=== PATIENT | female | born 1970 | race Caucasian/White ===

== ENCOUNTER 2020-09-19 19:28 | Emergency (ER) | payer BC ==
[2020-09-19] MEDS ORDERED: LORazepam 2 MG/ML INJ IV STA ×2 (20:09→22:52)
[2020-09-19] MEDS ORDERED: SODIUM CHLORIDE 0.9% 1,000 ML IV STA (20:09)
[2020-09-19] MEDS ORDERED: ONDANSETRON 4 MG/2 ML VIAL IVP STA (20:09)
[2020-09-19 20:44] LABS: Basophils # (A) 0.1 k/uL (0-0.2); Basophils % (A) 0 %; Eosinophils # (A) 0.2 k/uL (0-0.7); Eosinophils % (A) 2 %; HCT 41.8 % (34.0-46.0); HGB 15.1 gm/dL (11.4-16.0); Lymphocytes # (A) 1.1 k/uL (1.0-4.8); Lymphocytes % (A) 8 %; MCH 37.5 pg (25.0-35.0); MCHC 36.1 g/dL (31.0-37.0); MCV 103.7 fL (80.0-100.0); Macrocytosis Slight; Mean Platelet Volume 7.9; Monocytes # (A) 0.5 k/uL (0-1.0); Monocytes % (A) 4 %; Neutrophils % (A) 85 %; Platelet Count 262 k/uL (150-450); RBC 4.03 m/uL (3.80-5.40); RDW 11.9 % (11.5-15.5)
[2020-09-19 20:53] LABS: ALT 72 U/L (4-34); AST 171 U/L (14-36); African American GFR (CKD) >90 (>60 ml/min/1.73 sqM); Albumin 5.7 g/dL (3.5-5.0); Alcohol <10 mg/dL; Alkaline Phosphatase 110 U/L (38-126); Anion Gap 16 mmol/L; Blood Urea Nitrogen 8 mg/dL (7-17); Calcium 10.9 mg/dL (8.4-10.2); Carbon Dioxide 21 mmol/L (22-30); Chloride 100 mmol/L (98-107); Glucose 119 mg/dL (74-99); Non-African American GFR(CKD) 82 (>60 ml/min/1.73 sqM); Potassium 4.3 mmol/L (3.5-5.1); Sodium 137 mmol/L (137-145); Total Bilirubin 1.4 mg/dL (0.2-1.3); Total Protein 8.9 g/dL (6.3-8.2)
[2020-09-19 20:57] LABS: INR 0.9 (<1.2); Partial Thromboplastin Time 22.5 sec (22.0-30.0); Prothrombin Time 10.2 sec (9.0-12.0)
[2020-09-19 21:05] LABS: Amorphous Sediment,Urine Occasional /hpf; Appearance,Urine Cloudy (Clear); Bilirubin,Urine 1+ (Negative); Blood,Urine Negative (Negative); Color,Urine Yellow; Glucose,Urine (UA) Trace (Negative); Hyaline Casts,Urine 39 /lpf (0-2); Ketones,Urine 1+ (Negative); Leukocyte Esterase,Urine Small (Negative); Mucus,Urine Moderate /hpf; Nitrite,Urine Negative (Negative); PH, Urine 5.5 (5.0-8.0); Protein,Urine 1+ (Negative); RBC,Urine 3 /hpf (0-5); Specific Gravity,Urine 1.021 (1.001-1.035); Squamous Epithelial Cell,Urine 6 /hpf (0-4); WBC,Urine 6 /hpf (0-5)
[2020-09-19 21:21] LABS: Amphetamine Screen,Urine Not Detected (NotDetected); Barbiturate Screen,Urine Not Detected (NotDetected); Benzodiazepines Screen,Urine Not Detected (NotDetected); Cocaine Screen,Urine Not Detected (NotDetected); Methadone Screen, Urine Not Detected (NotDetected); Opiate Screen,Urine Not Detected (NotDetected); Oxycodone Screen, Urine Not Detected (NotDetected); Phencyclidine Screen,Urine Not Detected (NotDetected); Tricyclic Antidepressant,Urine Not Detected (NotDetected); Urn Cannabinoid Scrn Detected (NotDetected)
--- NOTE | 2020-09-19 21:35 | ED ---
Nausea/Vomiting/Diarrhea HPI - General Chief complaint: Arrhythmia/Palpitations Stated complaint: tachycardia,vomiting Time Seen by Provider: 09/19/20 19:47 Source: patient Mode of arrival: ambulatory Limitations: no limitations - History of Present Illness Initial comments: Patient is a 50-year-old female presenting to emergency Department with complai nts of nausea, vomiting, low appetite and feeling like her heart is racing. Patient states a few months ago, she was admitted at [facility] for severe dehydration and electrolyte imbalance. She states she feels like that could be going on again. She denies any chest pains, no shortness of breath, no abdominal pain. She just feels "shaky and off." She denies any recent fevers or chills, no dysuria she states her appetite has been low. She does admit to being a daily alcohol drinker, occasional marijuana, she does vape and smokes cigarettes. - Related Data Home Medications Medication Instructions Recorded Confirmed Fluticasone Nasal [place] [Flonase 1 spray EA NOSTRIL DAILY 09/19/20 09/19/20 Nasal [place]] Fluticasone/Salmeterol [Advair 1 puff INHALATION RT-DAILY 09/19/20 09/19/20 250-50 Diskus] Allergies Allergy/AdvReac Type Severity Reaction Status Date / Time Penicillins Allergy Unknown Verified 09/19/20 20:37 Childhood Review of Systems ROS Statement: Those systems with pertinent positive or pertinent negative responses have been documented in the HPI. ROS Other: All systems not noted in ROS Statement are negative. Past Medical History Past Medical History: Asthma History of Any Multi-Drug Resistant Organisms: None Reported Past Surgical History: Orthopedic Surgery, Tubal Ligation Past Psychological History: Depression, PTSD Smoking Status: Current every day smoker, Vaper Past Alcohol Use History: Daily, Heavy Past Drug Use History: Marijuana General Exam - General Exam Comments Initial Comments: GENERAL: Patient is well-developed and well-nourished. Patient is nontoxic and in no acute distress, appears anxious. HEAD: Atraumatic, normocephalic. EYES: Pupils equal round and reactive to light, extraocular movements intact, sclera anicteric, conjunctiva are normal. Eyelids were unremarkable. ENT: TMs normal, nares patent, oropharynx clear without exudates. Moist mucous membranes. NECK: Normal range of motion, supple without lymphadenopathy or JVD. LUNGS: Unlabored respirations. Breath sounds clear to auscultation bilaterally and equal. No wheezes rales or rhonchi. HEART: Tachycardic rate and rhythm without murmurs, rubs or gallops. ABDOMEN: Soft, nontender, normoactive bowel sounds. No guarding, no rebound. No masses appreciated. : Deferred MUSCULOSKELETAL: Normal extremities with adequate strength and normal range of motion, no pitting or edema. No clubbing or cyanosis. NEUROLOGICAL: Patient is alert and oriented x 3. Motor and sensory are also intact. Cranial nerves II through XII grossly intact. Symmetrical smile. Normal speech, normal gait. PSYCH: Normal mood, normal affect. SKIN: Warm, Dry, normal turgor, no rashes or lesions noted. Limitations: no limitations Course Vital Signs 09/19/20 09/19/20 09/19/20 19:37 20:12 22:38 Temperature 98.3 F 98.0 F Pulse Rate 122 H 106 H 110 H Pulse Rate [ 112 H Bilateral Radial] Respiratory 18 18 18 Rate Blood Pressure 139/95 136/94 116/78 O2 Sat by Pulse 99 100 99 Oximetry Medical Decision Making - Medical Decision Making Patient is a 50-year-old female here with complaints of nausea and vomiting, possible electrolyte imbalance, heart racing over the past few days. Patient's initial pulse was 122, EKG read sinus tach at 118. Patient is in every day drinker, no drinks today. Labs are showing a slight white count at 13.0, sodium potassium are normal, transaminitis, lactic acid is normal at 1.3. TSH is 2.4. Magnesium, phosphorus, lipase are all normal. Urine shows no evidence of in fection. Alcohol is negative today. She received a liter of fluids, Ativan, reports improvement in her symptoms. I discussed with patient this could be something viral or alcohol withdrawal/anxiety. I recommended following up with her PCP. I will give her Zofran to go home with. She is in agreement with this plan of care. She is stable for discharge. Return parameters were discussed with parents verbalized understanding. Case discussed with Dr. Colby. - Lab Data Result diagrams: 09/19/20 20:30 09/19/20 20:30 Lab Results 09/19/20 09/19/20 09/19/20 Range/Units 20:30 20:30 20:30 WBC 13.0 H (3.8-10.6) k/uL RBC 4.03 (3.80-5.40) m/uL Hgb 15.1 (11.4-16.0) gm/dL Hct 41.8 (34.0-46.0) % MCV 103.7 H (80.0-100.0) fL MCH 37.5 H (25.0-35.0) pg MCHC 36.1 (31.0-37.0) g/dL RDW 11.9 (11.5-15.5) % Plt Count 262 (150-450) k/uL MPV 7.9 Neutrophils % 85 % Lymphocytes % 8 % Monocytes % 4 % Eosinophils % 2 % Basophils % 0 % Neutrophils # 11.0 H (1.3-7.7) k/uL Lymphocytes # 1.1 (1.0-4.8) k/uL Monocytes # 0.5 (0-1.0) k/uL Eosinophils # 0.2 (0-0.7) k/uL Basophils # 0.1 (0-0.2) k/uL Macrocytosis Slight PT 10.2 (9.0-12.0) sec INR 0.9 (<1.2) APTT 22.5 (22.0-30.0) sec Sodium 137 (137-145) mmol/L Potassium 4.3 (3.5-5.1) mmol/L Chloride 100 (98-107) mmol/L Carbon Dioxide 21 L (22-30) mmol/L Anion Gap 16 mmol/L BUN 8 (7-17) mg/dL Creatinine 0.83 (0.52-1.04) mg/dL Est GFR (CKD-EPI)AfAm >90 (>60 ml/min/1.73 sqM) Est GFR (CKD-EPI)NonAf 82 (>60 ml/min/1.73 sqM) Glucose 119 H (74-99) mg/dL Plasma Lactic Acid [place] (0.7-2.0) mmol/L Calcium 10.9 H (8.4-10.2) mg/dL Phosphorus (2.5-4.5) mg/dL Magnesium (1.6-2.3) mg/dL Total Bilirubin 1.4 H (0.2-1.3) mg/dL AST 171 H (14-36) U/L ALT 72 H (4-34) U/L Alkaline Phosphatase 110 (38-126) U/L Total Protein 8.9 H (6.3-8.2) g/dL Albumin 5.7 H (3.5-5.0) g/dL Lipase (23-300) U/L TSH 2.480 (0.465-4.680) mIU/L Urine Color Urine Appearance (Clear) Urine pH (5.0-8.0) Ur Specific [place] (1.001-1.035) Urine Protein (Negative) Urine Glucose (UA) (Negative) Urine Ketones (Negative) Urine Blood (Negative) Urine Nitrite (Negative) Urine Bilirubin (Negative) Urine Urobilinogen (<2.0) mg/dL Ur Leukocyte Esterase (Negative) Urine RBC (0-5) /hpf Urine WBC (0-5) /hpf Ur Squamous Epith Cells (0-4) /hpf Amorphous Sediment (None) /hpf Hyaline Casts (0-2) /lpf Urine Mucus (None) /hpf Urine Opiates Screen (NotDetected) Ur Oxycodone Screen (NotDetected) Urine Methadone Screen (NotDetected) Ur Propoxyphene Screen (NotDetected) Ur Barbiturates Screen (NotDetected) U Tricyclic Antidepress (NotDetected) Ur Phencyclidine Scrn (NotDetected) Ur Amphetamines Screen (NotDetected) U Methamphetamines Scrn (NotDetected) U Benzodiazepines Scrn (NotDetected) Urine Cocaine Screen (NotDetected) U Marijuana (THC) Screen (NotDetected) Serum Alcohol <10 mg/dL 09/19/20 09/19/20 09/19/20 Range/Units 20:30 20:30 20:30 WBC (3.8-10.6) k/uL RBC (3.80-5.40) m/uL Hgb (11.4-16.0) gm/dL Hct (34.0-46.0) % MCV (80.0-100.0) fL MCH (25.0-35.0) pg MCHC (31.0-37.0) g/dL RDW (11.5-15.5) % Plt Count (150-450) k/uL MPV Neutrophils % % Lymphocytes % % Monocytes % % Eosinophils % % Basophils % % Neutrophils # (1.3-7.7) k/uL Lymphocytes # (1.0-4.8) k/uL Monocytes # (0-1.0) k/uL Eosinophils # (0-0.7) k/uL Basophils # (0-0.2) k/uL Macrocytosis PT (9.0-12.0) sec INR (<1.2) APTT (22.0-30.0) sec Sodium (137-145) mmol/L Potassium (3.5-5.1) mmol/L Chloride (98-107) mmol/L Carbon Dioxide (22-30) mmol/L Anion Gap mmol/L BUN (7-17) mg/dL Creatinine (0.52-1.04) mg/dL Est GFR (CKD-EPI)AfAm (>60 ml/min/1.73 sqM) Est GFR (CKD-EPI)NonAf (>60 ml/min/1.73 sqM) Glucose (74-99) mg/dL Plasma Lactic Acid [place] 1.3 (0.7-2.0) mmol/L Calcium (8.4-10.2) mg/dL Phosphorus 3.2 (2.5-4.5) mg/dL Magnesium 1.8 (1.6-2.3) mg/dL Total Bilirubin (0.2-1.3) mg/dL AST (14-36) U/L ALT (4-34) U/L Alkaline Phosphatase (38-126) U/L Total Protein (6.3-8.2) g/dL Albumin (3.5-5.0) g/dL Lipase 47 (23-300) U/L TSH (0.465-4.680) mIU/L Urine Color Yellow Urine Appearance Cloudy H (Clear) Urine pH 5.5 (5.0-8.0) Ur Specific [place] 1.021 (1.001-1.035) Urine Protein 1+ H (Negative) Urine Glucose (UA) Trace H (Negative) Urine Ketones 1+ H (Negative) Urine Blood Negative (Negative) Urine Nitrite Negative (Negative) Urine Bilirubin 1+ H (Negative) Urine Urobilinogen 2.0 (<2.0) mg/dL Ur Leukocyte Esterase Small H (Negative) Urine RBC 3 (0-5) /hpf Urine WBC 6 H (0-5) /hpf Ur Squamous Epith Cells 6 H (0-4) /hpf Amorphous Sediment Occasional H (None) /hpf Hyaline Casts 39 H (0-2) /lpf Urine Mucus Moderate H (None) /hpf Urine Opiates Screen Not Detected (NotDetected) Ur Oxycodone Screen Not Detected (NotDetected) Urine Methadone Screen Not Detected (NotDetected) Ur Propoxyphene Screen Not Detected (NotDetected) Ur Barbiturates Screen Not Detected (NotDetected) U Tricyclic Antidepress Not Detected (NotDetected) Ur Phencyclidine Scrn Not Detected (NotDetected) Ur Amphetamines Screen Not Detected (NotDetected) U Methamphetamines Scrn Not Detected (NotDetected) U Benzodiazepines Scrn Not Detected (NotDetected) Urine Cocaine Screen Not Detected (NotDetected) U Marijuana (THC) Screen Detected H (NotDetected) Serum Alcohol mg/dL - EKG Data EKG Comments: Sinus tach, left axis deviation, no signs of acute ST segment elevation. Ventricular rate 118, TX interval 170, QT 312. Disposition Clinical Impression: Nausea & vomiting, Alcohol withdrawal Disposition: HOME SELF-CARE Condition: Stable Instructions (If sedation given, give patient instructions): Acute Nausea and Vomiting (ED) Additional Instructions: Please return to the Emergency Department if symptoms worsen or any other concerns. May take Zofran for any additional nausea or vomiting. Recommended stop drinking. Please follow-up with your primary care physician. Is patient prescribed a controlled substance at d/c from ED?: No Referrals: Tahir Shepard MD [Primary Care Provider] - 1-2 days Time of Disposition: 23:37
[2020-09-19 22:38] VITALS: TEMP 98
[2020-09-19] MEDS ORDERED: SODIUM CHLORIDE 0.9% 500 ML 500 ML IV STA (22:52)
[2020-09-19 23:28] LABS: Magnesium 1.8 mg/dL (1.6-2.3); Phosphorus 3.2 mg/dL (2.5-4.5)
[2020-09-19] MEDS ORDERED: ONDANSETRON 4 MG ODT STARTER PACK 2 TAB BTL PO STA (23:37)
[2020-09-19 23:43] VITALS: BP 118/70; PULSE 95
[2020-09-19 23:48] VITALS: RESP 16
== END 2020-09-19 23:50 | disposition home or self-care (01) ==
LOC: EC 19:28
DX: F10.239 Alcohol dependence with withdrawal, unspecified (principal); J45.909 Unspecified asthma, uncomplicated; F17.290 Nicotine dependence, other tobacco product, uncomplicated; F12.90 Cannabis use, unspecified, uncomplicated; Z79.51 Long term (current) use of inhaled steroids; Z88.0 Allergy status to penicillin; Y90.0 Blood alcohol level of less than 20 mg/100 ml
CPT/HCPCS: 36415; 93005; 80053; 84443; 83605; 83690; 83735; 84100; 85025; 85610; 85730; 81001; 80306; 80320; 96374; 96375; 96376; 96361; 99284; J2060; J2405; S0119

== ENCOUNTER 2020-12-22 20:49 | Inpatient (IN) | payer BC ==
[2020-12-22] MEDS ORDERED: SODIUM CHLORIDE 0.9% 1,000 ML IV STA ×2 (21:23→23:17)
[2020-12-22] MEDS ORDERED: ONDANSETRON 4 MG/2 ML VIAL IVP STA (21:23)
[2020-12-22] MEDS ORDERED: LORazepam 2 MG/ML INJ IV STA (21:24)
[2020-12-22] MEDS ORDERED: FAMOTIDINE 20 MG/2 ML VIAL IV STA (21:25)
--- NOTE | 2020-12-22 21:26 | ED ---
General Adult HPI - General Source: patient, RN notes reviewed, old records reviewed Mode of arrival: wheelchair Limitations: no limitations <Kyle Nichols - Last Filed: 12/22/20 21:52> - History of Present Illness -: hour(s) Severity scale (1-10): 10 Quality: aching Consistency: constant Improves with: none Worsens with: none Associated Symptoms: confusion, loss of appetite, malaise, nausea/vomiting, shortness of breath, weakness Treatments Prior to Arrival: none <Shai Colby - Last Filed: 12/23/20 00:08> - General Chief complaint: Nausea/Vomiting/Diarrhea Stated complaint: Vomiting Time Seen by Provider: 12/22/20 21:11 - History of Present Illness Initial comments: 50-year-old female presenting for evaluation nausea vomiting. Patient denies associated abdominal pain. Denies fever. She denies dysuria or hematuria. Patient admits to alcohol consumption yesterday evening. She denies alcohol use today. Additionally she is complaining of some pain and irritation in her right ureter. (Kyle Nichols) Patient stopped drinking one day ago, significant distress weakness persistent nausea and vomiting (Shai Colby) - Related Data Home Medications Medication Instructions Recorded Confirmed Fluticasone/Salmeterol [Advair 1 puff INHALATION RT-DAILY 09/19/20 12/22/20 250-50 Diskus] Albuterol Sulfate [Albuterol 2 puff PO RT-Q6H PRN 12/22/20 12/22/20 Sulfate Hfa] Dextroamphetamine/Amphetamine 20 mg PO DAILY 12/22/20 12/22/20 [Adderall] LORazepam [Ativan] 0.5 mg PO BID PRN 12/22/20 12/22/20 Allergies Allergy/AdvReac Type Severity Reaction Status Date / Time Penicillins Allergy Unknown Verified 12/22/20 22:15 Childhood Review of Systems ROS Other: All systems not noted in ROS Statement are negative. <Kyle Nichols - Last Filed: 12/22/20 21:52> ROS Other: All systems not noted in ROS Statement are negative. <Shai Colby - Last Filed: 12/23/20 00:08> ROS Statement: Those systems with pertinent positive or pertinent negative responses have been documented in the HPI. Past Medical History Past Medical History: Asthma History of Any Multi-Drug Resistant Organisms: None Reported Past Surgical History: Orthopedic Surgery, Tubal Ligation Past Psychological History: Depression, PTSD Smoking Status: Current every day smoker, Vaper Past Alcohol Use History: Daily, Heavy Past Drug Use History: Marijuana <Kyle Nichols N - Last Filed: 12/22/20 21:52> General Exam Limitations: no limitations General appearance: alert, in no apparent distress Head exam: Present: atraumatic, normocephalic Eye exam: Present: normal appearance, PERRL ENT exam: Present: mucous membranes dry. Absent: TM's normal bilaterally (Right tympanic membrane is secured by impacted cerumen) Respiratory exam: Present: normal lung sounds bilaterally. Absent: respiratory distress, wheezes Cardiovascular Exam: Present: normal rhythm, tachycardia GI/Abdominal exam: Present: soft. Absent: distended, tenderness, guarding Neurological exam: Present: alert, oriented X3, CN II-XII intact. Absent: motor sensory deficit Psychiatric exam: Present: normal affect, normal mood Skin exam: Present: warm, dry, intact. Absent: cyanosis, diaphoretic <Kyle Nichols N - Last Filed: 12/22/20 21:52> Limitations: altered mental status General appearance: alert, in no apparent distress, anxious, in distress Head exam: Present: atraumatic, normocephalic, normal inspection Eye exam: Present: normal appearance, PERRL, EOMI. Absent: scleral icterus, conjunctival injection, periorbital swelling ENT exam: Present: normal exam, mucous membranes dry. Absent: mucous membranes moist Neck exam: Present: normal inspection. Absent: tenderness, meningismus, lymphadenopathy Respiratory exam: Present: normal lung sounds bilaterally. Absent: respiratory distress, wheezes, rales, rhonchi, stridor Cardiovascular Exam: Present: normal rhythm, tachycardia, normal heart sounds. Absent: systolic murmur, diastolic murmur, rubs, gallop, clicks GI/Abdominal exam: Present: soft, normal bowel sounds. Absent: distended, tenderness, guarding, rebound, rigid Extremities exam: Present: normal inspection, full ROM, normal capillary refill. Absent: tenderness, pedal edema, joint swelling, calf tenderness Back exam: Present: normal inspection Neurological exam: Present: alert, oriented X3, CN II-XII intact Psychiatric exam: Present: normal affect, normal mood Skin exam: Present: warm, dry, intact, normal color. Absent: rash <Shai Colby - Last Filed: 12/23/20 00:08> Course <Kyle Nichols - Last Filed: 12/22/20 21:52> Vital Signs 12/22/20 12/22/20 12/22/20 20:56 21:35 23:00 Temperature 97.3 F L Pulse Rate 124 H 114 H 104 H Respiratory 20 18 18 Rate Blood Pressure 150/91 139/90 130/82 O2 Sat by Pulse 98 98 100 Oximetry - Reevaluation(s) Reevaluation #1: 12/22/20 21:52 Patient care signed out to Dr. Colby At shift change awaiting laboratory testing and reevaluation. (Kyle Nichols) EKG Findings - EKG Comments: EKG Findings:: EKG: Sinus tachycardia, rate of 107, WA interval 146, QRS duration 88, QTC 427, no ST segment elevation. <Kyle Nichols - Last Filed: 12/22/20 21:52> Medical Decision Making - Lab Data Result diagrams: 12/22/20 21:32 12/22/20 21:32 <Shai Colby - Last Filed: 12/23/20 00:08> - Medical Decision Making 50-year-old female in significant distress coming in for severe nausea vomiting dehydration. Last drink one day ago. Patient be admitted for alcohol ketoacidosis with impending alcohol withdrawal (Shai Colby) - Lab Data Lab Results 12/22/20 12/22/20 12/22/20 Range/Units 21:32 21:32 21:32 WBC 11.0 H (3.8-10.6) k/uL RBC 4.48 (3.80-5.40) m/uL Hgb 16.5 H (11.4-16.0) gm/dL Hct 48.9 H (34.0-46.0) % MCV 109.2 H (80.0-100.0) fL MCH 36.9 H (25.0-35.0) pg MCHC 33.8 (31.0-37.0) g/dL RDW 12.7 (11.5-15.5) % Plt Count 293 (150-450) k/uL MPV 7.7 Neutrophils % 90 % Lymphocytes % 4 % Monocytes % 5 % Eosinophils % 0 % Basophils % 0 % Neutrophils # 10.0 H (1.3-7.7) k/uL Lymphocytes # 0.5 L (1.0-4.8) k/uL Monocytes # 0.5 (0-1.0) k/uL Eosinophils # 0.0 (0-0.7) k/uL Basophils # 0.0 (0-0.2) k/uL Macrocytosis Moderate VBG pH (7.31-7.41) VBG pCO2 (37-51) mmHg VBG HCO3 (24-28) mmol/L Sodium 132 L (137-145) mmol/L Potassium 5.3 H (3.5-5.1) mmol/L Chloride 97 L (98-107) mmol/L Carbon Dioxide <5 L* (22-30) mmol/L Anion Gap mmol/L BUN 19 H (7-17) mg/dL Creatinine 0.86 (0.52-1.04) mg/dL Est GFR (CKD-EPI)AfAm >90 (>60 ml/min/1.73 sqM) Est GFR (CKD-EPI)NonAf 79 (>60 ml/min/1.73 sqM) Glucose 84 (74-99) mg/dL Plasma Lactic Acid [place] (0.7-2.0) mmol/L Calcium 9.6 (8.4-10.2) mg/dL Phosphorus (2.5-4.5) mg/dL Magnesium 2.0 (1.6-2.3) mg/dL Total Bilirubin 1.0 (0.2-1.3) mg/dL AST 117 H (14-36) U/L ALT 55 H (4-34) U/L Alkaline Phosphatase 105 (38-126) U/L Total Protein 9.3 H (6.3-8.2) g/dL Albumin 5.6 H (3.5-5.0) g/dL Lipase 29 (23-300) U/L Urine Color Light Yellow Urine Appearance Cloudy H (Clear) Urine pH 5.5 (5.0-8.0) Ur Specific [place] 1.016 (1.001-1.035) Urine Protein 1+ H (Negative) Urine Glucose (UA) Negative (Negative) Urine Ketones 4+ H (Negative) Urine Blood Trace H (Negative) Urine Nitrite Negative (Negative) Urine Bilirubin Negative (Negative) Urine Urobilinogen <2.0 (<2.0) mg/dL Ur Leukocyte Esterase Trace H (Negative) Urine RBC 1 (0-5) /hpf Urine WBC 5 (0-5) /hpf Ur Squamous Epith Cells 6 H (0-4) /hpf Hyaline Casts 18 H (0-2) /lpf Urine Mucus Rare H (None) /hpf Urine Yeast (Budding) Occasional H (None) /hpf Salicylates mg/dL Acetaminophen ug/mL Serum Alcohol mg/dL 12/22/20 12/22/20 12/22/20 Range/Units 21:32 23:30 23:30 WBC (3.8-10.6) k/uL RBC (3.80-5.40) m/uL Hgb (11.4-16.0) gm/dL Hct (34.0-46.0) % MCV (80.0-100.0) fL MCH (25.0-35.0) pg MCHC (31.0-37.0) g/dL RDW (11.5-15.5) % Plt Count (150-450) k/uL MPV Neutrophils % % Lymphocytes % % Monocytes % % Eosinophils % % Basophils % % Neutrophils # (1.3-7.7) k/uL Lymphocytes # (1.0-4.8) k/uL Monocytes # (0-1.0) k/uL Eosinophils # (0-0.7) k/uL Basophils # (0-0.2) k/uL Macrocytosis VBG pH 7.00 L* (7.31-7.41) VBG pCO2 31 L (37-51) mmHg VBG HCO3 7 L* (24-28) mmol/L Sodium (137-145) mmol/L Potassium (3.5-5.1) mmol/L Chloride (98-107) mmol/L Carbon Dioxide (22-30) mmol/L Anion Gap mmol/L BUN (7-17) mg/dL Creatinine (0.52-1.04) mg/dL Est GFR (CKD-EPI)AfAm (>60 ml/min/1.73 sqM) Est GFR (CKD-EPI)NonAf (>60 ml/min/1.73 sqM) Glucose (74-99) mg/dL Plasma Lactic Acid [place] 1.7 (0.7-2.0) mmol/L Calcium (8.4-10.2) mg/dL Phosphorus 5.5 H (2.5-4.5) mg/dL Magnesium (1.6-2.3) mg/dL Total Bilirubin (0.2-1.3) mg/dL AST (14-36) U/L ALT (4-34) U/L Alkaline Phosphatase (38-126) U/L Total Protein (6.3-8.2) g/dL Albumin (3.5-5.0) g/dL Lipase (23-300) U/L Urine Color Urine Appearance (Clear) Urine pH (5.0-8.0) Ur Specific [place] (1.001-1.035) Urine Protein (Negative) Urine Glucose (UA) (Negative) Urine Ketones (Negative) Urine Blood (Negative) Urine Nitrite (Negative) Urine Bilirubin (Negative) Urine Urobilinogen (<2.0) mg/dL Ur Leukocyte Esterase (Negative) Urine RBC (0-5) /hpf Urine WBC (0-5) /hpf Ur Squamous Epith Cells (0-4) /hpf Hyaline Casts (0-2) /lpf Urine Mucus (None) /hpf Urine Yeast (Budding) (None) /hpf Salicylates <1.0 mg/dL Acetaminophen <10.0 ug/mL Serum Alcohol <10 mg/dL Critical Care Time Critical Care Time: Yes Total Critical Care Time: 31 <Shai Colby - Last Filed: 12/23/20 00:08> Disposition <Kyle Nichols - Last Filed: 12/22/20 21:52> Is patient prescribed a controlled substance at d/c from ED?: No <Shai Colby - Last Filed: 12/23/20 00:08> Clinical Impression: Dehydration, Gastroenteritis, Alcoholic ketoacidosis Disposition: ADMITTED IP TO THIS HOSP Condition: Fair Referrals: Tahir Shepard MD [Primary Care Provider] - 1-2 days
[2020-12-22 22:04] LABS: ALT 55 U/L (4-34); AST 117 U/L (14-36); African American GFR (CKD) >90 (>60 ml/min/1.73 sqM); Albumin 5.6 g/dL (3.5-5.0); Alkaline Phosphatase 105 U/L (38-126); Blood Urea Nitrogen 19 mg/dL (7-17); Calcium 9.6 mg/dL (8.4-10.2); Chloride 97 mmol/L (98-107); Glucose 84 mg/dL (74-99); Lipase 29 U/L (23-300); Non-African American GFR(CKD) 79 (>60 ml/min/1.73 sqM); Potassium 5.3 mmol/L (3.5-5.1); Sodium 132 mmol/L (137-145); Total Protein 9.3 g/dL (6.3-8.2)
[2020-12-22 22:11] LABS: Basophils % (A) 0 %; Eosinophils % (A) 0 %; HCT 48.9 % (34.0-46.0); HGB 16.5 gm/dL (11.4-16.0); Lymphocytes # (A) 0.5 k/uL (1.0-4.8); Lymphocytes % (A) 4 %; MCH 36.9 pg (25.0-35.0); MCHC 33.8 g/dL (31.0-37.0); MCV 109.2 fL (80.0-100.0); Macrocytosis Moderate; Mean Platelet Volume 7.7; Monocytes # (A) 0.5 k/uL (0-1.0); Monocytes % (A) 5 %; Neutrophils % (A) 90 %; Platelet Count 293 k/uL (150-450); RBC 4.48 m/uL (3.80-5.40); RDW 12.7 % (11.5-15.5)
[2020-12-22 22:28] LABS: Appearance,Urine Cloudy (Clear); Bilirubin,Urine Negative (Negative); Blood,Urine Trace (Negative); Budding Yeast,Urine Occasional /hpf; Color,Urine Light Yellow; Glucose,Urine (UA) Negative (Negative); Hyaline Casts,Urine 18 /lpf (0-2); Ketones,Urine 4+ (Negative); Leukocyte Esterase,Urine Trace (Negative); Mucus,Urine Rare /hpf; Nitrite,Urine Negative (Negative); PH, Urine 5.5 (5.0-8.0); Protein,Urine 1+ (Negative); RBC,Urine 1 /hpf (0-5); Specific Gravity,Urine 1.016 (1.001-1.035); Squamous Epithelial Cell,Urine 6 /hpf (0-4); Urobilinogen,Urine <2.0 mg/dL (<2.0); WBC,Urine 5 /hpf (0-5)
[2020-12-22] MEDS ORDERED: MORPHINE SULFATE 4 MG/ML SYRINGE IVP STA (22:49)
[2020-12-22] MEDS ORDERED: PROCHLORPERAZINE INJ 10 MG/2 ML VIAL IVP STA (22:49)
[2020-12-22 23:16] LABS: Carbon Dioxide <5 mmol/L (22-30)
[2020-12-22] MEDS ORDERED: SODIUM CHLORIDE 0.9% 500 ML 500 ML IV STA (23:17)
[2020-12-22] MEDS: SODIUM CHLORIDE 0.9% 1,000 ML IV STA (23:33)
[2020-12-22 23:55] LABS: Acetaminophen <10.0 ug/mL; Alcohol <10 mg/dL; Phosphorus 5.5 mg/dL (2.5-4.5); Salicylate <1.0 mg/dL
[2020-12-23] MEDS ORDERED: LORazepam 2 MG/ML INJ IV PRN ×2 (00:03)
[2020-12-23] MEDS ORDERED: MORPHINE SULFATE 4 MG/ML SYRINGE IV PRN (00:04)
[2020-12-23] MEDS ORDERED: NALOXONE 0.4 MG/ML 1 ML VIAL IV PRN (00:04)
[2020-12-23] MEDS ORDERED: ONDANSETRON 4 MG/2 ML VIAL IVP PRN (00:04)
[2020-12-23] MEDS ORDERED: DIAZEPAM 5 MG/ML 2 ML INJ IVP STA (00:05)
[2020-12-23] MEDS ORDERED: IPRATROPIUM-ALBUTEROL 3 ML NEB INHALATION PRN (00:10)
[2020-12-23] MEDS ORDERED: THIAMINE 100 MG/ML 2 ML VIAL IM ONE (00:15)
[2020-12-23] MEDS: DIAZEPAM 5 MG/ML 2 ML INJ IVP SCH ×4 (03:45→17:41)
[2020-12-23] MEDS: DEXTROSE 5%-0.45% NACL 1,000 ML IV SCH ×3 (03:45→19:45)
--- NOTE | 2020-12-23 04:32 | P.HPIM ---
History of Present Illness H&P Date: 12/23/20 Patient is a 50-year-old female with a PMH of alcohol abuse and COPD who presents to the emergency room with complaints of nausea, vomiting, and lethargy. The patient reports that she drinks upwards of a fifth of vodka daily which she has been doing for several years but states that over the past week, her appetite has been poor and she thereby has not been eating or drinking much. She reports that she consumed most of her calories from alcohol over the past 3 days. She then attempted to eat a few oranges at which time she proceeded to throw up, causing her nausea to get worse and also developing a sore throat. She denied abdominal pain, fever, chills, cough, chest pain. Also denied dys uria, or diarrhea. The patient reported that her last drink was roughly 36 hours ago. Reports prior history of some shakiness whenever she would try to quit alcohol but denies alcohol withdrawal seizures or being hospitalized for her drinking. In the emergency room, laboratory evaluation was remarkable for hemoglobin 16.5, MCV 109.2, sodium 132, potassium 5.3, chloride 97, bicarb less than 5, BUN 19, creatinine 0.86, AST 117, ALT 55. Review of systems: Pertinent positives and negatives as discussed in HPI, a complete review of systems was performed and all other systems are negative. Physical examination: General: Somewhat ill-appearing dehydrated female, no distress, appears at stated age, normal weight Derm: no unusual rashes/lesions no unusual ecchymoses, warm, dry Head: atraumatic, normocephalic, symmetric Eyes: EOMI, no lid lag, anicteric sclera, pupils equal round reactive to light ENT: Nose and ears atraumatic, no thrush, no pharyngeal erythema Neck: No thyromegaly, no cervical lymphadenopathy, trachea midline, supple Mouth: no lip lesion, mucus membranes dry Cardiovascular: S1S2 reg, no murmur, positive posterior tibial pulse bilateral, no edema, capillary refill less than 2 seconds Lungs: CTA bilateral, no rhonchi, no rales , no accessory muscle use Abdominal: soft, nontender to palpation, no guarding, no appreciable organomegaly, normal bowel sounds Ext: no gross muscle atrophy, muscle strength 5 out of 5 in all 4 extremities grossly, no contractures, Neuro: CN II-XI grossly intact, light touch intact all 4 extremities, finger to nose within normal limits, Psych: Alert, oriented, appropriate affect Assessment/plan Alcoholic ketoacidosis -Continue with IV fluids -CIWA protocol -Thiamine -Cardiac monitoring -Monitor electrolytes daily Hyponatremia -Likely secondary to poor oral intake -Monitor for now Macrocytosis -Obtain B12 and folate levels Chronic conditions: COPD -Continue with home meds DVT prophylaxis -Heparin subcu The patient is admitted with an anticipated greater than 2 midnight stay for evaluation of EtOH ketosis CODE STATUS: Full Code Discussed with: patient Anticipated discharge date: 2-[address]: Home Past Medical History Past Medical History: Asthma History of Any Multi-Drug Resistant Organisms: None Reported Past Surgical History: Orthopedic Surgery, Tubal Ligation Past Psychological History: Depression, PTSD Smoking Status: Current every day smoker, Vaper Past Alcohol Use History: Daily, Heavy Past Drug Use History: Marijuana - Past Family History Mother Family Medical History: Coronary Artery Disease (CAD) Medications and Allergies Home Medications Medication Instructions Recorded Confirmed Type Fluticasone/Salmeterol [Advair 1 puff INHALATION RT-DAILY 09/19/20 12/22/20 History 250-50 Diskus] Albuterol Sulfate [Albuterol 2 puff PO RT-Q6H PRN 12/22/20 12/22/20 History Sulfate Hfa] Dextroamphetamine/Amphetamine 20 mg PO DAILY 12/22/20 12/22/20 History [Adderall] LORazepam [Ativan] 0.5 mg PO BID PRN 12/22/20 12/22/20 History Allergies Allergy/AdvReac Type Severity Reaction Status Date / Time Penicillins Allergy Unknown Verified 12/22/20 22:15 Childhood Physical Exam Vitals: Vital Signs Temp Pulse Resp BP Pulse Ox 12/23/20 03:40 98.3 F 111 H 18 107/70 100 12/23/20 01:32 98.1 F 113 H 18 115/67 98 12/23/20 01:00 116 H 18 128/80 97 12/23/20 00:00 113 H 18 106/45 99 12/22/20 23:00 104 H 18 130/82 100 12/22/20 21:35 114 H 18 139/90 98 12/22/20 20:56 97.3 F L 124 H 20 150/91 98 Intake and Output 12/22/20 12/22/20 12/23/20 14:59 22:59 06:59 Other: Weight 70.307 kg Results CBC & Chem 7: 12/22/20 21:32 12/22/20 21:32 Labs: Abnormal Lab Results - Last 24 Hours (Table) 12/22/20 12/22/20 12/22/20 Range/Units 21:32 21:32 21:32 WBC 11.0 H (3.8-10.6) k/uL Hgb 16.5 H (11.4-16.0) gm/dL Hct 48.9 H (34.0-46.0) % MCV 109.2 H (80.0-100.0) fL MCH 36.9 H (25.0-35.0) pg Neutrophils # 10.0 H (1.3-7.7) k/uL Lymphocytes # 0.5 L (1.0-4.8) k/uL VBG pH (7.31-7.41) VBG pCO2 (37-51) mmHg VBG HCO3 (24-28) mmol/L Sodium 132 L (137-145) mmol/L Potassium 5.3 H (3.5-5.1) mmol/L Chloride 97 L (98-107) mmol/L Carbon Dioxide <5 L* (22-30) mmol/L BUN 19 H (7-17) mg/dL Phosphorus (2.5-4.5) mg/dL AST 117 H (14-36) U/L ALT 55 H (4-34) U/L Total Protein 9.3 H (6.3-8.2) g/dL Albumin 5.6 H (3.5-5.0) g/dL Urine Appearance Cloudy H (Clear) Urine Protein 1+ H (Negative) Urine Ketones 4+ H (Negative) Urine Blood Trace H (Negative) Ur Leukocyte Esterase Trace H (Negative) Ur Squamous Epith Cells 6 H (0-4) /hpf Hyaline Casts 18 H (0-2) /lpf Urine Mucus Rare H (None) /hpf Urine Yeast (Budding) Occasional H (None) /hpf 12/22/20 12/22/20 Range/Units 23:30 23:30 WBC (3.8-10.6) k/uL Hgb (11.4-16.0) gm/dL Hct (34.0-46.0) % MCV (80.0-100.0) fL MCH (25.0-35.0) pg Neutrophils # (1.3-7.7) k/uL Lymphocytes # (1.0-4.8) k/uL VBG pH 7.00 L* (7.31-7.41) VBG pCO2 31 L (37-51) mmHg VBG HCO3 7 L* (24-28) mmol/L Sodium (137-145) mmol/L Potassium (3.5-5.1) mmol/L Chloride (98-107) mmol/L Carbon Dioxide (22-30) mmol/L BUN (7-17) mg/dL Phosphorus 5.5 H (2.5-4.5) mg/dL AST (14-36) U/L ALT (4-34) U/L Total Protein (6.3-8.2) g/dL Albumin (3.5-5.0) g/dL Urine Appearance (Clear) Urine Protein (Negative) Urine Ketones (Negative) Urine Blood (Negative) Ur Leukocyte Esterase (Negative) Ur Squamous Epith Cells (0-4) /hpf Hyaline Casts (0-2) /lpf Urine Mucus (None) /hpf Urine Yeast (Budding) (None) /hpf
[2020-12-23] MEDS: LORazepam 2 MG/ML INJ IV PRN ×2 (08:24→14:10)
[2020-12-23] MEDS: HEPARIN SODIUM,PORCINE/PF 5,000 UNIT/0.5 ML SYRINGE SQ SCH ×2 (08:26→17:41)
[2020-12-23 09:26] LABS: VBG PH 7.27 (7.31-7.41)
[2020-12-23 09:31] LABS: HCT 37.9 % (34.0-46.0); MCH 37.4 pg (25.0-35.0); MCHC 34.7 g/dL (31.0-37.0); MCV 107.6 fL (80.0-100.0); Macrocytosis Moderate; Mean Platelet Volume 7.5; Platelet Count 206 k/uL (150-450); RBC 3.53 m/uL (3.80-5.40)
[2020-12-23 09:32] LABS: African American GFR (CKD) >90 (>60 ml/min/1.73 sqM); Anion Gap 13 mmol/L; Blood Urea Nitrogen 9 mg/dL (7-17); Calcium 8.9 mg/dL (8.4-10.2); Carbon Dioxide 11 mmol/L (22-30); Chloride 108 mmol/L (98-107); Glucose 117 mg/dL (74-99); Magnesium 1.8 mg/dL (1.6-2.3); Non-African American GFR(CKD) >90 (>60 ml/min/1.73 sqM); Potassium 4.6 mmol/L (3.5-5.1); Sodium 132 mmol/L (137-145)
[2020-12-23 09:35] LABS: HGB 13.2 gm/dL (11.4-16.0)
[2020-12-23] MEDS ORDERED: SODIUM BICARB 8.4% 50 ML SYR (1 MEQ/ML) IV STA (10:04)
[2020-12-23] MEDS ORDERED: ALBUTEROL NEBULIZED 2.5 MG/3 ML INHALATION PRN (10:25)
--- NOTE | 2020-12-23 10:28 | P.PN ---
Subjective Progress Note Date: 12/23/20 Hospital Course: Patient is a 50-year-old female with a past medical history of alcohol use/abuse drinking reportedly 1/5 of vodka daily along with occasional beers, nicotine dependence, and COPD. She presented to the hospital on 12/22/20 with a chief complaint of decreased appetite, nausea, and vomiting. Patient states daily alcohol use for many many years with last reported drink being 2-3 days prior to coming to the hospital. She was seen and fully evaluated in the emergency department resulting in admission to our services for alcoholic ketoacidosis after pt was found to have a chloride of 97, CO2 of < 5, and anion gap unable to be calculated. VBGs revealed pH of 7.00 and a bicarb of 7. Pt admitted to step down unit to receive continues cardiac monitoring and aggressive rehydration with IV fluids. Physical examination: Patient seen and fully evaluated at bedside this morning. She reports currently nausea is controlled and denies having any further episodes of vomiting since last night. She denies having any headache, lightheadedness, dizziness, chest pain, palpitations, shortness of breath, abdominal pain, or experiencing any numbness/tingling/weakness in her extremities. Patient was counseled significantly on the importance of alcohol cessation and risks of continued use/abuse. Patient reports that her , mother, and father all have a history of alcohol abuse. Patient states she knows she has to quit but currently is declining inpatient rehabilitation program upon discharge from hospital. She was admitted overnight for alcoholic ketoacidosis and was found to have a chloride of 97, CO2 of < 5, and anion gap was unable to be calculated. VBGs revealed pH of 7.00 and a bicarb of 7. Patient received aggressive fluid hydration throughout the night with D5.45% at 100 mL's per hour. Repeat morning labs revealed continued but improving alcoholic ketoacidosis with chlor ella of 108, carbon dioxide 11, anion gap 13, pH 7.27, pCO2 30, and bicarb 13. At this time we will continue with IV fluid hydration and an order was placed for 1 amp of bicarb at this time. General: Somewhat ill-appearing dehydrated female, no distress, appears at stated age, normal weight Derm: no unusual rashes/lesions no unusual ecchymoses, warm, dry Head: atraumatic, normocephalic, symmetric Eyes: EOMI, no lid lag, anicteric sclera, pupils equal round reactive to light ENT: Nose and ears atraumatic, no thrush, no pharyngeal erythema Neck: No thyromegaly, no cervical lymphadenopathy, trachea midline, supple Mouth: no lip lesion, mucus membranes dry Cardiovascular: S1S2 reg, no murmur, positive posterior tibial pulses bilaterally, no edema, capillary refill less than 2 seconds Lungs: CTA bilateral, no rhonchi, no rales , no accessory muscle use Abdominal: soft, nontender to palpation, no guarding, no appreciable organomegaly, normal bowel sounds Ext: no gross muscle atrophy, muscle strength 5 out of 5 in all 4 extremities grossly, no contractures, Neuro: CN II-XI grossly intact, light touch intact all 4 extremities, finger to nose within normal limits, Psych: Alert, oriented, appropriate affect Assessment and plan of care: Alcoholic ketoacidosis Alcohol abuse with withdrawal -Initial labs: chloride of 97, CO2 of < 5, anion gap unable to be calculated, pH of 7.00 and a bicarb of 7. Repeat morning labs revealed continued but improving alcoholic ketoacidosis with chloride of 108, carbon dioxide 11, anion gap 13, pH 7.27, pCO2 30, and bicarb 13. -Order placed for 1 amp of bicarb -Continue with IV fluids -CIWA protocol with symptom triggered medication management -Seizure precautions, fall precautions, and aspiration precautions in place -Thiamine -Cardiac monitoring -Monitor electrolytes daily Hyponatremia -Likely secondary to poor oral intake and reported episodes of vomiting -We will continue to hydrate with IV fluids Macrocytosis -Hemoglobin 16.5, hematocrit 40.9, MCV 109.2, MCH 36.9, MCHC 33.8, and RDW of 12.7. -Macrocytosis possibly secondary to COPD vs dehydration -Obtain B12 and folate levels Hyperkalemia, resolved COPD -Continue with Advair 1 puff daily and when necessary Ventolin for shortness of breath and/or wheezing. -Encourage smoking cessation and educated on benefits of smoking cessation and risks of continued use. CODE STATUS: Full Code DVT prophylaxis: Heparin Discussed with: Patient and RN Anticipated discharge date: 2-[address]: Home A total of 45 minutes was spent on the care of this complex patient more than 50% of the time was spent in counseling and care coordination. Objective - Vital Signs Vital signs: Vital Signs Temp 99.1 F 12/23/20 07:07 Pulse 106 H 12/23/20 07:07 Resp 18 12/23/20 07:07 BP 136/74 12/23/20 07:07 Pulse Ox 98 12/23/20 07:07 Intake & Output 12/22/20 12/23/20 12/23/20 18:59 06:59 18:59 Weight 70.307 kg - Labs CBC & Chem 7: 12/23/20 09:03 12/23/20 09:03 Labs: Abnormal Lab Results - Last 24 Hours (Table) 12/22/20 12/22/20 12/22/20 Range/Units 21:32 21:32 21:32 WBC 11.0 H (3.8-10.6) k/uL Hgb 16.5 H (11.4-16.0) gm/dL Hct 48.9 H (34.0-46.0) % MCV 109.2 H (80.0-100.0) fL MCH 36.9 H (25.0-35.0) pg Neutrophils # 10.0 H (1.3-7.7) k/uL Lymphocytes # 0.5 L (1.0-4.8) k/uL VBG pH (7.31-7.41) VBG pCO2 (37-51) mmHg VBG HCO3 (24-28) mmol/L Sodium 132 L (137-145) mmol/L Potassium 5.3 H (3.5-5.1) mmol/L Chloride 97 L (98-107) mmol/L Carbon Dioxide <5 L* (22-30) mmol/L BUN 19 H (7-17) mg/dL Phosphorus (2.5-4.5) mg/dL AST 117 H (14-36) U/L ALT 55 H (4-34) U/L Total Protein 9.3 H (6.3-8.2) g/dL Albumin 5.6 H (3.5-5.0) g/dL Urine Appearance Cloudy H (Clear) Urine Protein 1+ H (Negative) Urine Ketones 4+ H (Negative) Urine Blood Trace H (Negative) Ur Leukocyte Esterase Trace H (Negative) Ur Squamous Epith Cells 6 H (0-4) /hpf Hyaline Casts 18 H (0-2) /lpf Urine Mucus Rare H (None) /hpf Urine Yeast (Budding) Occasional H (None) /hpf 12/22/20 12/22/20 Range/Units 23:30 23:30 WBC (3.8-10.6) k/uL Hgb (11.4-16.0) gm/dL Hct (34.0-46.0) % MCV (80.0-100.0) fL MCH (25.0-35.0) pg Neutrophils # (1.3-7.7) k/uL Lymphocytes # (1.0-4.8) k/uL VBG pH 7.00 L* (7.31-7.41) VBG pCO2 31 L (37-51) mmHg VBG HCO3 7 L* (24-28) mmol/L Sodium (137-145) mmol/L Potassium (3.5-5.1) mmol/L Chloride (98-107) mmol/L Carbon Dioxide (22-30) mmol/L BUN (7-17) mg/dL Phosphorus 5.5 H (2.5-4.5) mg/dL AST (14-36) U/L ALT (4-34) U/L Total Protein (6.3-8.2) g/dL Albumin (3.5-5.0) g/dL Urine Appearance (Clear) Urine Protein (Negative) Urine Ketones (Negative) Urine Blood (Negative) Ur Leukocyte Esterase (Negative) Ur Squamous Epith Cells (0-4) /hpf Hyaline Casts (0-2) /lpf Urine Mucus (None) /hpf Urine Yeast (Budding) (None) /hpf
[2020-12-23] MEDS: MULTIVITAMINS, THERA 1 EACH TAB PO SCH (10:49)
[2020-12-23] MEDS: SYMBICORT 80-4.5 MCG INHALER INHALATION SCH ×2 (11:27→19:58)
[2020-12-23] MEDS: THIAMINE 100 MG TAB PO SCH (17:41)
[2020-12-24] MEDS: DIAZEPAM 5 MG/ML 2 ML INJ IVP SCH ×2 (00:36→06:24)
[2020-12-24] MEDS: HEPARIN SODIUM,PORCINE/PF 5,000 UNIT/0.5 ML SYRINGE SQ SCH ×2 (00:36→09:42)
[2020-12-24] MEDS: DEXTROSE 5%-0.45% NACL 1,000 ML IV SCH (03:40)
[2020-12-24] MEDS: THIAMINE 100 MG TAB PO SCH (06:24)
[2020-12-24] MEDS: SYMBICORT 80-4.5 MCG INHALER INHALATION SCH (07:55)
[2020-12-24 08:24] VITALS: BP 131/84; PULSE 88; RESP 16; TEMP 98.5
[2020-12-24 08:44] LABS: Basophils % (A) 0 %; Eosinophils # (A) 0.1 k/uL (0-0.7); Eosinophils % (A) 3 %; HCT 38.5 % (34.0-46.0); HGB 13.1 gm/dL (11.4-16.0); Lymphocytes # (A) 1.5 k/uL (1.0-4.8); Lymphocytes % (A) 39 %; MCHC 33.9 g/dL (31.0-37.0); MCV 106.2 fL (80.0-100.0); Macrocytosis Slight; Mean Platelet Volume 7.7; Monocytes # (A) 0.2 k/uL (0-1.0); Monocytes % (A) 6 %; Neutrophils % (A) 51 %; Platelet Count 166 k/uL (150-450); RBC 3.63 m/uL (3.80-5.40); WBC 3.9 k/uL (3.8-10.6)
[2020-12-24 09:29] LABS: ALT 27 U/L (4-34); AST 52 U/L (14-36); African American GFR (CKD) >90 (>60 ml/min/1.73 sqM); Alkaline Phosphatase 75 U/L (38-126); Anion Gap 6 mmol/L; Blood Urea Nitrogen 3 mg/dL (7-17); Calcium 9.2 mg/dL (8.4-10.2); Carbon Dioxide 23 mmol/L (22-30); Chloride 107 mmol/L (98-107); Glucose 125 mg/dL (74-99); Magnesium 1.8 mg/dL (1.6-2.3); Non-African American GFR(CKD) >90 (>60 ml/min/1.73 sqM); Phosphorus 1.2 mg/dL (2.5-4.5); Potassium 3.2 mmol/L (3.5-5.1); Sodium 136 mmol/L (137-145); Total Bilirubin 0.8 mg/dL (0.2-1.3); Total Protein 6.8 g/dL (6.3-8.2)
[2020-12-24] MEDS: MULTIVITAMINS, THERA 1 EACH TAB PO SCH (09:46)
[2020-12-24] MEDS ORDERED: POTASSIUM CHLORIDE ER 20 MEQ TAB.ER PO STA (10:12)
--- NOTE | 2020-12-24 11:48 | P.DS ---
Providers Date of admission: 12/23/20 00:04 Expected date of discharge: 12/24/20 Attending physician: Prieto Mcarthur MD Primary care physician: Tahir Thomas [facility] Course: 50-year-old female with a PMH of alcohol abuse and COPD who presents to the emergency room with complaints of nausea, vomiting, and lethargy. The patient reports that she drinks upwards of a fifth of vodka daily which she has been doing for several years but states that over the past week, her appetite has been poor and she thereby has not been eating or drinking much. She reports that she consumed most of her calories from alcohol over the past 3 days. She then attempted to eat a few oranges at which time she proceeded to throw up, causing her nausea to get worse and also developing a sore throat. She denied abdominal pain, fever, chills, cough, chest pain. Also denied dysuria, or diarrhea. The patient reported that her last drink was roughly 36 hours ago. Reports prior history of some shakiness whenever she would try to quit alcohol but denies alcohol withdrawal seizures or being hospitalized for her drinking. In the emergency room, laboratory evaluation was remarkable for hemoglobin 16.5, MCV 109.2, sodium 132, potassium 5.3, chloride 97, bicarb less than 5, BUN 19, creatinine 0.86, AST 117, ALT 55. BGs revealed pH of 7.00 and a bicarb of 7. Patient was admitted, findings were consistent with alcoholic ketoacidosis, she was started on thiamine, folic acid and aggressive fluid hydration with D5.45%. Repeat morning labs revealed continued but improving alcoholic ketoacidosis with chloride of 108, carbon dioxide 11, anion gap 13, pH 7.27, pCO2 30, and bicarb 13. IV fluid hydration was resumed and she was also given 1 amp of bicarb at this time. This morning she is feeling much better, she is going to her baseline. Her morning labs were significant for low potassium and low phosphorus both of which will be replaced. She was counseled to quit alcohol and to eat normally. She is aware of the consequences of drinking more alcohol. She will be discharged home in stable condition. Time for discharge 35 minutes. Patient Condition at Discharge: Fair Plan - Discharge Summary Discharge Rx Participant: No New Discharge Prescriptions: New Multivitamins, Thera [Multivitamin (formulary)] 1 each PO DAILY 30 Days #30 tab Sod Phos Di, Lynn/K Phos Lynn [K-Phos Neutral Tablet] 250 mg PO TID 4 Days #10 tablet Thiamine [Vitamin B-1] 100 mg PO BID-W/MEALS 30 Days #30 tab Continue Fluticasone/Salmeterol [Advair 250-50 Diskus] 1 puff INHALATION RT-DAILY Dextroamphetamine/Amphetamine [Adderall] 20 mg PO DAILY Albuterol Sulfate [Albuterol Sulfate Hfa] 2 puff PO RT-Q6H PRN PRN Reason: Shortness Of Breath LORazepam [Ativan] 0.5 mg PO BID PRN PRN Reason: Anxiety Discharge Medication List Fluticasone/Salmeterol [Advair 250-50 Diskus] 1 puff INHALATION RT-DAILY 09/19/20 [History] Albuterol Sulfate [Albuterol Sulfate Hfa] 2 puff PO RT-Q6H PRN 12/22/20 [History] Dextroamphetamine/Amphetamine [Adderall] 20 mg PO DAILY 12/22/20 [History] LORazepam [Ativan] 0.5 mg PO BID PRN 12/22/20 [History] Multivitamins, Thera [Multivitamin (formulary)] 1 each PO DAILY 30 Days #30 tab 12/24/20 [Rx] Sod Phos Di, Lynn/K Phos Lynn [K-Phos Neutral Tablet] 250 mg PO TID 4 Days #10 tablet 12/24/20 [Rx] Thiamine [Vitamin B-1] 100 mg PO BID-W/MEALS 30 Days #30 tab 12/24/20 [Rx] Follow up Appointment(s)/Referral(s): Tahir Shepard MD [Primary Care Provider] - 1-2 days Patient Instructions/Handouts: Dehydration (ED), Alcohol Intoxication (ED), Abuse of Alcohol (ED), Acute Nausea and Vomiting (ED), Alcohol Withdrawal (ED) Activity/Diet/Wound Care/Special Instructions: Follow up with mental health at discharge.
== END 2020-12-24 15:17 | disposition home or self-care (01) | DRG 642 ==
LOC: EC 20:49 → 3SCARD 12-23 00:04
PROVIDERS: ADMIT Internal Medicine; ATTEND Internal Medicine
PROC: HZ2ZZZZ Detoxification Services for Substance Abuse Treatment (ICD-10-PCS; principal; 2020-12-23)
DX: E88.89 Other specified metabolic disorders (principal); E87.2 Acidosis; E87.1 Hypo-osmolality and hyponatremia; F10.10 Alcohol abuse, uncomplicated; K52.9 Noninfective gastroenteritis and colitis, unspecified; Z20.822 Contact with and (suspected) exposure to COVID-19; Z71.41 Alcohol abuse counseling and surveillance of alcoholic; J44.9 Chronic obstructive pulmonary disease, unspecified; E86.0 Dehydration; R00.0 Tachycardia, unspecified; D75.89 Other specified diseases of blood and blood-forming organs; F17.210 Nicotine dependence, cigarettes, uncomplicated; F32.9 Major depressive disorder, single episode, unspecified; F43.10 Post-traumatic stress disorder, unspecified; Z79.899 Other long term (current) drug therapy; Z88.0 Allergy status to penicillin
CPT/HCPCS: 36415; 80048; 80053; 80143; 80179; 80320; 81001; 82607; 82747; 82803; 83605; 83690; 83735; 84100; 85025; 85027; 87635; 93005; 94640; 96361; 96374; 96375; 99291

== ENCOUNTER 2021-12-19 00:49 | Inpatient (IN) | payer BC ==
[2021-12-19] MEDS ORDERED: SODIUM CHLORIDE 0.9% 1,000 ML IV STA (01:12)
[2021-12-19] MEDS ORDERED: ONDANSETRON 4 MG/2 ML VIAL IVP STA (01:12)
[2021-12-19] MEDS ORDERED: THIAMINE 100 MG/ML 2 ML VIAL IM STA (01:13)
[2021-12-19] MEDS ORDERED: KETOROLAC 15 MG/ML 1 ML VIAL IVP STA (01:47)
[2021-12-19 01:54] LABS: Basophils % (A) 0 %; Eosinophils % (A) 0 %; HCT 46.2 % (34.0-46.0); HGB 15.6 gm/dL (11.4-16.0); Lymphocytes # (A) 0.6 k/uL (1.0-4.8); Lymphocytes % (A) 4 %; MCH 36.9 pg (25.0-35.0); MCHC 33.8 g/dL (31.0-37.0); MCV 109.3 fL (80.0-100.0); Macrocytosis Moderate; Mean Platelet Volume 8.1; Monocytes # (A) 0.8 k/uL (0-1.0); Monocytes % (A) 5 %; Neutrophils # (A) 13.6 k/uL (1.3-7.7); Neutrophils % (A) 90 %; Platelet Count 286 k/uL (150-450); RBC 4.22 m/uL (3.80-5.40); WBC 15.1 k/uL (3.8-10.6)
[2021-12-19 02:06] LABS: ALT 50 U/L (4-34); AST 117 U/L (14-36); African American GFR (CKD) >90 (>60 ml/min/1.73 sqM); Albumin 5.3 g/dL (3.5-5.0); Alcohol 10 mg/dL; Alkaline Phosphatase 115 U/L (38-126); Anion Gap 29 mmol/L; Blood Urea Nitrogen 18 mg/dL (7-17); Calcium 8.9 mg/dL (8.4-10.2); Chloride 99 mmol/L (98-107); Lipase 22 U/L (23-300); Magnesium 2.2 mg/dL (1.6-2.3); Non-African American GFR(CKD) 79 (>60 ml/min/1.73 sqM); Phosphorus 7.4 mg/dL (2.5-4.5); Potassium 4.5 mmol/L (3.5-5.1); Sodium 135 mmol/L (137-145); Total Bilirubin 0.7 mg/dL (0.2-1.3); Total Protein 8.2 g/dL (6.3-8.2)
[2021-12-19 02:07] LABS: Prothrombin Time 10.9 sec (9.0-12.0)
[2021-12-19] MEDS ORDERED: LORazepam 2 MG/ML INJ IV STA (02:22)
[2021-12-19] MEDS ORDERED: LORazepam 1 MG TAB PO PRN ×4 (02:22)
[2021-12-19] MEDS ORDERED: LORazepam 0.5 MG TAB PO PRN (02:22)
--- NOTE | 2021-12-19 02:24 | ED ---
General Adult HPI - General Source: EMS Mode of arrival: EMS Limitations: no limitations <Chuckie Lam - Last Filed: 12/20/21 04:58> <Jennifer Gibson - Last Filed: 12/20/21 09:20> - General Chief complaint: Nausea/Vomiting/Diarrhea Stated complaint: nausea vomiting Time Seen by Provider: 12/19/21 01:02 - History of Present Illness Initial comments: Patient is a 51-year-old female presenting with chief complaint of nausea and vomiting. Patient believes that she is withdrawing from alcohol. Patient is a daily drinker, she states that starting 5 days ago she was drinking more than usual, approximately half of a fifth of liquor per day. Her last drink was 2 days ago, today she tried to have a shot of liquor to help curve her withdrawal symptoms. She also admits to headache and sensation of heart racing. The states that yesterday she wasn't eating. She denies chest pain, difficulty breathing, abdominal pain, hematemesis, hematochezia, melena, fever, chills. (Chuckie Lam) - Related Data Home Medications Medication Instructions Recorded Confirmed Dextroamphetamine/Amphetamine 20 mg PO BID 12/22/20 12/19/21 [Adderall] Cyclobenzaprine [Flexeril] 5 mg PO HS PRN 12/19/21 12/19/21 Fluticasone Propionate 2 spray EA NOSTRIL DAILY PRN 12/19/21 12/19/21 Levalbuterol Hfa Inhaler [Xopenex 2 puff INHALATION RT-Q6H PRN 12/19/21 12/19/21 Hfa Inhaler] lamoTRIgine [LaMICtal] 25 mg PO BID 12/19/21 12/19/21 Allergies Allergy/AdvReac Type Severity Reaction Status Date / Time Penicillins Allergy Unknown Verified 12/19/21 07:14 Childhood Review of Systems ROS Other: All systems not noted in ROS Statement are negative. <Chuckie Lam - Last Filed: 12/20/21 04:58> ROS Other: All systems not noted in ROS Statement are negative. <Jennifer Gibson - Last Filed: 12/20/21 09:20> ROS Statement: Those systems with pertinent positive or pertinent negative responses have been documented in the HPI. Past Medical History Past Medical History: Asthma, Pneumonia History of Any Multi-Drug Resistant Organisms: None Reported Past Surgical History: Tubal Ligation Past Anesthesia/Blood Transfusion Reactions: No Reported Reaction Past Psychological History: ADD/ADHD, Anxiety, Depression, PTSD Smoking Status: Current every day smoker, Vaper Past Alcohol Use History: Daily, Heavy Past Drug Use History: Marijuana - Past Family History Mother Family Medical History: Cancer, Coronary Artery Disease (CAD) Additional Family Medical History / Comment(s): Ovarian CA Father Family Medical History: Hyperlipidemia, Hypertension <Chuckie Lam - Last Filed: 12/20/21 04:58> General Exam Limitations: no limitations General appearance: alert, anxious Head exam: Present: atraumatic, normocephalic, normal inspection Eye exam: Present: normal appearance, PERRL, EOMI. Absent: scleral icterus, conjunctival injection, periorbital swelling Neck exam: Present: normal inspection Respiratory exam: Present: normal lung sounds bilaterally. Absent: respiratory distress, wheezes, rales, rhonchi, stridor Cardiovascular Exam: Present: regular rate, normal rhythm, normal heart sounds. Absent: systolic murmur, diastolic murmur, rubs, gallop, clicks GI/Abdominal exam: Present: soft. Absent: distended, tenderness, guarding, rebound, rigid Neurological exam: Present: alert, oriented X3, CN II-XII intact Psychiatric exam: Present: normal affect, normal mood Skin exam: Present: warm, dry, intact, normal color. Absent: rash <Chuckie Lam - Last Filed: 12/20/21 04:58> Course Vital Signs 12/19/21 12/19/21 12/19/21 00:55 02:21 03:47 Temperature 98.3 F Pulse Rate 88 121 H 111 H Respiratory 15 16 15 Rate Blood Pressure 144/74 142/77 114/61 O2 Sat by Pulse 99 98 97 Oximetry 12/19/21 12/19/21 12/19/21 07:53 08:28 09:39 Temperature 98.6 F Pulse Rate 130 H 126 H 130 H Respiratory 22 17 19 Rate Blood Pressure 138/72 140/81 122/65 O2 Sat by Pulse 100 100 100 Oximetry 12/19/21 12/19/21 13:00 13:10 Temperature 98.1 F 97.8 F Pulse Rate 113 H 128 H Respiratory 20 19 Rate Blood Pressure 121/98 121/98 O2 Sat by Pulse 99 100 Oximetry EKG Findings - EKG Comments: EKG Findings:: Sinus tachycardia rate of 125. OR interval 163. QRS duration 101. QT/QTC 320/394. <Chuckie Lam - Last Filed: 12/20/21 04:58> Medical Decision Making - Lab Data Result diagrams: 12/20/21 03:53 12/20/21 03:53 <Chuckie Lam - Last Filed: 12/20/21 04:58> - Lab Data Result diagrams: 12/20/21 03:53 12/20/21 03:53 <Jennifer Gibson - Last Filed: 12/20/21 09:20> - Medical Decision Making Patient is a 51-year-old female presenting with chief complaint of alcohol withdrawal. Patient is a daily heavy drinker, states that her last drink was 2 days ago. She is experiencing nausea and vomiting. On examination patient is tachycardic. Patient appears to be in alcoholic ketoacidosis. Anion gap of 29 and carbon dioxide 7. Glucose 27, patient is immediately given 1 amp of dextrose. Amylase of 354, likely has concurrent pancreatitis. No hypokalemia or hypomagnesia. Patient is receiving fluid boluses and will be placed on D5NS. Glucose recheck is 94. Venous blood gas shows pH of 6.95, patient is started on sodium bicarbonate. [facility] physician Dr. cMarthur accepts admission of this patient. Patient is agreeable with this plan. I discussed this case in detail with my attending Dr. Gibson. (Chuckie Lam) - Lab Data Lab Results 12/19/21 12/19/21 12/19/21 Range/Units 01:25 01:25 01:25 WBC 15.1 H (3.8-10.6) k/uL RBC 4.22 (3.80-5.40) m/uL Hgb 15.6 (11.4-16.0) gm/dL Hct 46.2 H (34.0-46.0) % MCV 109.3 H (80.0-100.0) fL MCH 36.9 H (25.0-35.0) pg MCHC 33.8 (31.0-37.0) g/dL RDW 12.0 (11.5-15.5) % Plt Count 286 (150-450) k/uL MPV 8.1 Neutrophils % 90 % Lymphocytes % 4 % Monocytes % 5 % Eosinophils % 0 % Basophils % 0 % Neutrophils # 13.6 H (1.3-7.7) k/uL Lymphocytes # 0.6 L (1.0-4.8) k/uL Monocytes # 0.8 (0-1.0) k/uL Eosinophils # 0.0 (0-0.7) k/uL Basophils # 0.0 (0-0.2) k/uL Macrocytosis Moderate PT 10.9 (9.0-12.0) sec INR 1.0 (<1.2) Sodium 135 L (137-145) mmol/L Potassium 4.5 (3.5-5.1) mmol/L Chloride 99 (98-107) mmol/L Carbon Dioxide 7 L* (22-30) mmol/L Anion Gap 29 mmol/L BUN 18 H (7-17) mg/dL Creatinine 0.86 (0.52-1.04) mg/dL Est GFR (CKD-EPI)AfAm >90 (>60 ml/min/1.73 sqM) Est GFR (CKD-EPI)NonAf 79 (>60 ml/min/1.73 sqM) Glucose 27 L* (74-99) mg/dL POC Glucose (mg/dL) (70-110) mg/dL POC Glu Meat Packager ID Calcium 8.9 (8.4-10.2) mg/dL Phosphorus 7.4 H (2.5-4.5) mg/dL Magnesium 2.2 (1.6-2.3) mg/dL Total Bilirubin 0.7 (0.2-1.3) mg/dL AST 117 H (14-36) U/L ALT 50 H (4-34) U/L Alkaline Phosphatase 115 (38-126) U/L Total Protein 8.2 (6.3-8.2) g/dL Albumin 5.3 H (3.5-5.0) g/dL Amylase 354 H* (30-110) U/L Lipase 22 L (23-300) U/L Serum Alcohol 10 mg/dL 12/19/21 Range/Units 03:28 WBC (3.8-10.6) k/uL RBC (3.80-5.40) m/uL Hgb (11.4-16.0) gm/dL Hct (34.0-46.0) % MCV (80.0-100.0) fL MCH (25.0-35.0) pg MCHC (31.0-37.0) g/dL RDW (11.5-15.5) % Plt Count (150-450) k/uL MPV Neutrophils % % Lymphocytes % % Monocytes % % Eosinophils % % Basophils % % Neutrophils # (1.3-7.7) k/uL Lymphocytes # (1.0-4.8) k/uL Monocytes # (0-1.0) k/uL Eosinophils # (0-0.7) k/uL Basophils # (0-0.2) k/uL Macrocytosis PT (9.0-12.0) sec INR (<1.2) Sodium (137-145) mmol/L Potassium (3.5-5.1) mmol/L Chloride (98-107) mmol/L Carbon Dioxide (22-30) mmol/L Anion Gap mmol/L BUN (7-17) mg/dL Creatinine (0.52-1.04) mg/dL Est GFR (CKD-EPI)AfAm (>60 ml/min/1.73 sqM) Est GFR (CKD-EPI)NonAf (>60 ml/min/1.73 sqM) Glucose (74-99) mg/dL POC Glucose (mg/dL) 94 (70-110) mg/dL POC Glu Meat Packager ID Tim Ordonez Calcium (8.4-10.2) mg/dL Phosphorus (2.5-4.5) mg/dL Magnesium (1.6-2.3) mg/dL Total Bilirubin (0.2-1.3) mg/dL AST (14-36) U/L ALT (4-34) U/L Alkaline Phosphatase (38-126) U/L Total Protein (6.3-8.2) g/dL Albumin (3.5-5.0) g/dL Amylase (30-110) U/L Lipase (23-300) U/L Serum Alcohol mg/dL Critical Care Time Critical Care Time: Yes <Jennifer Gibson - Last Filed: 12/20/21 09:20> Critical Care Time: 35 minutes (Jennifer Gibson) Disposition Time of Disposition: 03:26 Decision to Admit Reason: Admit from EC Decision Date: 12/19/21 Decision Time: 03:26 <Chuckie Lam - Last Filed: 12/20/21 04:58> <Jennifer Gibson - Last Filed: 12/20/21 09:20> Clinical Impression: Alcoholic ketoacidosis Disposition: ADMITTED IP TO THIS HOSP Condition: Serious
[2021-12-19 02:25] LABS: Amylase 354 U/L (30-110); Carbon Dioxide 7 mmol/L (22-30); Glucose 27 mg/dL (74-99)
[2021-12-19] MEDS ORDERED: DEXTROSE 50% SYRINGE 50 ML IVP STA (02:25)
[2021-12-19] MEDS ORDERED: DEXTROSE 5%-0.9% NACL 1,000 ML IV SCH ×2 (02:45→03:30)
[2021-12-19] MEDS ORDERED: FAMOTIDINE 20 MG/2 ML VIAL IV STA (03:02)
[2021-12-19] MEDS ORDERED: LORazepam 2 MG/ML INJ IV PRN ×2 (03:11)
[2021-12-19] MEDS ORDERED: NALOXONE 0.4 MG/ML 1 ML VIAL IV PRN (03:27)
[2021-12-19 03:31] LABS: Glucose,Whole Blood 94 mg/dL (70-110)
[2021-12-19 03:41] LABS: VBG PH 6.95 (7.31-7.41)
[2021-12-19] MEDS ORDERED: SODIUM BICARB 8.4% 50 ML SYR (1 MEQ/ML) IV STA ×2 (04:00→10:17)
[2021-12-19] MEDS: ONDANSETRON 4 MG/2 ML VIAL IVP PRN ×3 (04:55→18:09)
[2021-12-19] MEDS: DEXTROSE 5% IN WATER 1,000 ML with SODIUM BICARB (1 MEQ/ML) 150 ML IV SCH ×4 (05:14→20:48)
[2021-12-19] MEDS: LORazepam 2 MG/ML INJ IV PRN ×2 (05:16→06:32)
--- NOTE | 2021-12-19 05:20 | P.HPIM ---
History of Present Illness H&P Date: 12/19/21 The patient is a 51-year-old female with a PMH of alcohol abuse and COPD who presents to the emergency room accompanied by her for nausea, vomiting, and feeling ill. History supplemented by the at the bedside. The patient reports that she had been drinking heavily since Thursday, and has essentially not eaten or drank anything except for alcohol. She reports drinking a fifth of vodka over 2-3 days for the past several years. Reports a history of DTs and alcohol withdrawal seizures. Reports feeling really fatigued at the time of interview. Denied chest pain, shortness of breath, nausea, vomiting, abdominal pain, diarrhea. The patient was tachycardic upon prese ntation to the emergency room with pulse 121. EKG reveals sinus tachycardia at 1 25 bpm. Laboratory evaluation was remarkable for leukocytosis of 15.1, VBG with pH 6.95, CO2 7, glucose 27, AST 117, ALT 50, and serum alcohol 10. The patient stated that her last drink was earlier today. Review of systems: Pertinent positives and negatives as discussed in HPI, a complete review of sys tems was performed and all other systems are negative. Physical examination: General: Ill-appearing tremulous female,appears at stated age, normal weight Derm: no unusual rashes/lesions, warm Head: atraumatic, normocephalic, symmetric Eyes: EOMI, no lid lag, anicteric sclera, pupils equal round reactive to light ENT: Nose and ears atraumatic Neck: No cervical lymphadenopathy, trachea midline, supple Mouth: no lip lesion, mucus membranes moist Cardiovascular: S1S2 reg, no murmur, positive dorsalis pedis pulse bilateral, no edema Lungs: CTA bilateral, no rhonchi, no rales, no accessory muscle use Abdominal: soft, nontender to palpation, no guarding Ext: muscle strength 4 out of 5 in all 4 extremities grossly, no gross muscle atrophy, no contractures, Neuro: CN II-XI grossly intact, no gross focal neuro deficits Psych: Somewhat sleepy, answering most questions appropriately, oriented to person, place, time Assessment/plan Alcoholic ketoacidosis -Continue with a bicarbonate infusion with D5 at 250 mL an hour -Monitor electrolytes every 2 hours and replace as needed -Strongly advised on importance of cessation from alcohol use -[facility] protocol -Thiamine -Fall, aspiration, seizure precautions -Blood glucose monitoring q1h for now Leukocytosis -Likely secondary to acute stressor -No signs of active infection at this time DVT prophylaxis -Heparin subq The patient is admitted with an anticipated greater than 2 midnight stay for evaluation of alcoholic ketoacidosis CODE STATUS: Full Code Discussed with: Patient Anticipated discharge date: 2-[address]: Home Past Medical History Past Medical History: Asthma, Pneumonia History of Any Multi-Drug Resistant Organisms: None Reported Past Surgical History: Tubal Ligation Past Anesthesia/Blood Transfusion Reactions: No Reported Reaction Past Psychological History: ADD/ADHD, Anxiety, Depression, PTSD Smoking Status: Current every day smoker, Vaper Past Alcohol Use History: Daily, Heavy Past Drug Use History: Marijuana - Past Family History Mother Family Medical History: Cancer, Coronary Artery Disease (CAD) Additional Family Medical History / Comment(s): Ovarian CA Father Family Medical History: Hyperlipidemia, Hypertension Medications and Allergies Home Medications Medication Instructions Recorded Confirmed Type Fluticasone Propion/Salmeterol 1 puff INHALATION RT-DAILY 09/19/20 12/22/20 History [Advair 250-50 Diskus] Albuterol Sulfate [Albuterol 2 puff PO RT-Q6H PRN 12/22/20 12/22/20 History Sulfate Hfa] Dextroamphetamine/Amphetamine 20 mg PO DAILY 12/22/20 12/22/20 History [Adderall] LORazepam [Ativan] 0.5 mg PO BID PRN 12/22/20 12/22/20 History Multivitamins, Thera [Multivitamin 1 each PO DAILY 30 Days #30 tab 12/24/20 Rx (formulary)] Sod Phos Di, Hughes/K Phos Hughes 250 mg PO TID 4 Days #10 tablet 12/24/20 Rx [K-Phos Neutral Tablet] Thiamine [Vitamin B-1] 100 mg PO BID-W/MEALS 30 Days #30 12/24/20 Rx tab Allergies Allergy/AdvReac Type Severity Reaction Status Date / Time Penicillins Allergy Unknown Verified 12/19/21 00:55 Childhood Physical Exam Vitals: Vital Signs Temp Pulse Resp BP Pulse Ox 12/19/21 03:47 111 H 15 114/61 97 12/19/21 02:21 121 H 16 142/77 98 12/19/21 00:55 98.3 F 88 15 144/74 99 Intake and Output 12/18/21 12/18/21 12/19/21 14:59 22:59 06:59 Other: Weight 68.039 kg Results CBC & Chem 7: 12/19/21 01:25 12/19/21 01:25 Labs: Abnormal Lab Results - Last 24 Hours (Table) 12/19/21 12/19/21 12/19/21 Range/Units 01:25 01:25 03:29 WBC 15.1 H (3.8-10.6) k/uL Hct 46.2 H (34.0-46.0) % MCV 109.3 H (80.0-100.0) fL MCH 36.9 H (25.0-35.0) pg Neutrophils # 13.6 H (1.3-7.7) k/uL Lymphocytes # 0.6 L (1.0-4.8) k/uL VBG pH 6.95 L* (7.31-7.41) VBG pCO2 26 L (37-51) mmHg VBG HCO3 6 L* (24-28) mmol/L Sodium 135 L (137-145) mmol/L Carbon Dioxide 7 L* (22-30) mmol/L BUN 18 H (7-17) mg/dL Glucose 27 L* (74-99) mg/dL Phosphorus 7.4 H (2.5-4.5) mg/dL AST 117 H (14-36) U/L ALT 50 H (4-34) U/L Albumin 5.3 H (3.5-5.0) g/dL Amylase 354 H* (30-110) U/L Lipase 22 L (23-300) U/L
[2021-12-19 06:48] LABS: Glucose,Whole Blood 105 mg/dL (70-110)
[2021-12-19 07:44] LABS: Glucose,Whole Blood 96 mg/dL (70-110)
[2021-12-19 08:43] LABS: Glucose,Whole Blood 116 mg/dL (70-110)
[2021-12-19 09:43] LABS: Glucose,Whole Blood 110 mg/dL (70-110)
[2021-12-19 09:52] LABS: Calcium 7.9 mg/dL (8.4-10.2); Potassium 5.1 mmol/L (3.5-5.1)
[2021-12-19 10:07] LABS: VBG PH 7.02 (7.31-7.41)
[2021-12-19 10:45] LABS: Glucose,Whole Blood 151 mg/dL (70-110)
[2021-12-19 11:06] LABS: Appearance,Urine Clear (Clear); Bacteria,Urine Rare /hpf; Bilirubin,Urine Negative (Negative); Blood,Urine Negative (Negative); Color,Urine Colorless; Glucose,Urine (UA) Negative (Negative); Hyaline Casts,Urine 1 /lpf (0-2); Ketones,Urine 4+ (Negative); Leukocyte Esterase,Urine Negative (Negative); Mucus,Urine Rare /hpf; Nitrite,Urine Negative (Negative); PH, Urine 5.5 (5.0-8.0); Protein,Urine 1+ (Negative); Specific Gravity,Urine 1.015 (1.001-1.035); Squamous Epithelial Cell,Urine <1 /hpf (0-4); Urobilinogen,Urine <2.0 mg/dL (<2.0); WBC,Urine <1 /hpf (0-5)
[2021-12-19 11:20] LABS: Amphetamine Screen,Urine Detected (NotDetected); Barbiturate Screen,Urine Not Detected (NotDetected); Benzodiazepines Screen,Urine Detected (NotDetected); Cocaine Screen,Urine Not Detected (NotDetected); Methadone Screen, Urine Not Detected (NotDetected); Opiate Screen,Urine Not Detected (NotDetected); Oxycodone Screen, Urine Not Detected (NotDetected); Phencyclidine Screen,Urine Not Detected (NotDetected); Tricyclic Antidepressant,Urine Not Detected (NotDetected); Urn Cannabinoid Scrn Detected (NotDetected)
[2021-12-19 12:23] LABS: Glucose,Whole Blood 189 mg/dL (70-110)
[2021-12-19 12:59] LABS: Glucose,Whole Blood 177 mg/dL (70-110)
[2021-12-19] MEDS: CEFEPIME 2 GM in SODIUM CHLORIDE 0.9% 100 ML IVPB SCH ×3 (13:05→23:32)
--- NOTE | 2021-12-19 15:42 | XR ---
EXAMINATION TYPE: XR chest 2V DATE OF EXAM: 12/19/2021 COMPARISON: None HISTORY: 51-year-old female with sepsis TECHNIQUE: AP and lateral views FINDINGS: Heart normal size. Aorta and pulmonary vasculature within normal limits. Interstitial prominence is a chronic appearance. No consolidation or pleural effusion. IMPRESSION: Chronic appearing changes. No acute process seen.
--- NOTE | 2021-12-19 16:11 | P.PN ---
Progress Note - Text Progress Note Date: 12/19/21 The patient is a 51-year-old female with a PMH of alcohol abuse and COPD who presents to the emergency room accompanied by her for nausea, vomiting, and feeling ill. The patient reports that she had been drinking heavily since Thursday, and has essentially not eaten or drank anything except for alcohol. She reports drinking a fifth of vodka over 2-3 days for the past several years. The patient was tachycardic upon presentation to the emergency room with pulse 121. EKG reveals sinus tachycardia at 1 25 bpm. Laboratory evaluation was remarkable for leukocytosis of 15.1, VBG with pH 6.95, CO2 7, glucose 27, AST 117, ALT 50, and serum alcohol 10. The patient stated that her last drink was earlier today. The patient was given 1 amp of bicarb started on a D5 bicarb drip. Her hypoglycemia resolved. Repeat ABG shows pH is 7.02, bicarb of 9. The case was discussed with Dr. Smart who was agreeable to admit the patient to ICU for closer monitoring. The patient was seen by me earlier this morning. Her was at bedside. She reported heartburn but no other symptoms. Patient appears lethargic. She is tachycardic. Her abdomen is nontender to palpation. #Alcoholic and starvation ketoacidosis Urinalysis shows 4+ ketones. Her bicarbonate deficit is 462.4. Her osmolar gap is 7.8. Acetone positive. She'll be given an additional amp of bicarb. Admitted to ICU for closer monitoring. BMP every 4 hours. Telemetry monitoring. #Sepsis, unknown source of infection Patient is septic with tachycardia, leukocytosis and tachypnea. This could all be related to her electrolyte abnormalities. Patient be started on cefepime for empiric antibiotic coverage. Lactic acid is negative. Urinalysis negative for leukocyte esterase or nitrite. Chest x-ray shows no acute process. Will follow blood culture. #Hypoglycemia Likely related to the above. Continue IV hydration as above. Accu-Cheks every 4 hours. Hypoglycemic precautions. Fall, seizure and aspiration precautions. #Alcohol abuse with impending withdrawal #Transaminitis Continue CIWA protocol and given Ativan as needed. Patient encouraged cessation. Continue thiamine. #Gastritis Protonix 40 mg IV daily. DVT prophylaxis: Heparin Discussed with: Patient, , Dr. Smart Anticipated discharge: Depending on clinical course Anticipated discharge place: Home A total of 25 minutes was spent on the care of this complex patient more than 50% of the time was spent in counseling and care coordination.
[2021-12-19 16:44] LABS: VBG PH 7.29 (7.31-7.41)
[2021-12-19 16:45] LABS: Glucose,Whole Blood 154 mg/dL (70-110)
[2021-12-19 16:54] LABS: African American GFR (CKD) >90 (>60 ml/min/1.73 sqM); Anion Gap 17 mmol/L; Blood Urea Nitrogen 12 mg/dL (7-17); Calcium 7.9 mg/dL (8.4-10.2); Carbon Dioxide 16 mmol/L (22-30); Chloride 99 mmol/L (98-107); Glucose 160 mg/dL (74-99); Non-African American GFR(CKD) >90 (>60 ml/min/1.73 sqM); Potassium 4.2 mmol/L (3.5-5.1); Sodium 132 mmol/L (137-145)
[2021-12-19 20:04] LABS: Glucose,Whole Blood 135 mg/dL (70-110)
[2021-12-19] MEDS ORDERED: ACETAMINOPHEN TAB 325 MG TAB PO PRN (20:43)
[2021-12-19] MEDS ORDERED: PROCHLORPERAZINE SUPPOSITORY 25 MG SUPP RECTAL PRN (20:43)
[2021-12-19] MEDS: LORazepam 1 MG/0.5 ML VIAL IV PRN (20:44)
[2021-12-19] MEDS ORDERED: METOCLOPRAMIDE 5 MG/ML 2 ML VIAL IVP STA (20:47)
[2021-12-19 23:21] LABS: Glucose,Whole Blood 149 mg/dL (70-110)
[2021-12-19] MEDS: HEPARIN SODIUM,PORCINE/PF 5,000 UNIT/0.5 ML SYRINGE SQ SCH (23:32)
[2021-12-20] MEDS: LORazepam 1 MG/0.5 ML VIAL IV PRN ×4 (02:02→23:12)
[2021-12-20 03:54] LABS: Glucose,Whole Blood 161 mg/dL (70-110)
[2021-12-20 04:04] LABS: Basophils % (A) 0 %; Eosinophils # (A) 0.1 k/uL (0-0.7); Eosinophils % (A) 2 %; HCT 32.8 % (34.0-46.0); HGB 12.2 gm/dL (11.4-16.0); Lymphocytes # (A) 0.9 k/uL (1.0-4.8); Lymphocytes % (A) 17 %; MCH 37.7 pg (25.0-35.0); Monocytes # (A) 0.2 k/uL (0-1.0); Monocytes % (A) 4 %; Neutrophils # (A) 4.1 k/uL (1.3-7.7); Neutrophils % (A) 75 %; RBC 3.22 m/uL (3.80-5.40); WBC 5.4 k/uL (3.8-10.6)
[2021-12-20 04:16] LABS: ALT 25 U/L (4-34); AST 37 U/L (14-36); African American GFR (CKD) >90 (>60 ml/min/1.73 sqM); Albumin 3.4 g/dL (3.5-5.0); Alkaline Phosphatase 68 U/L (38-126); Amylase 148 U/L (30-110); Anion Gap 9 mmol/L; Blood Urea Nitrogen 5 mg/dL (7-17); Calcium 7.6 mg/dL (8.4-10.2); Carbon Dioxide 25 mmol/L (22-30); Chloride 99 mmol/L (98-107); Glucose 146 mg/dL (74-99); Lipase 46 U/L (23-300); Non-African American GFR(CKD) >90 (>60 ml/min/1.73 sqM); Potassium 2.8 mmol/L (3.5-5.1); Sodium 133 mmol/L (137-145); Total Bilirubin 0.7 mg/dL (0.2-1.3); Total Protein 5.5 g/dL (6.3-8.2)
[2021-12-20 04:38] LABS: Platelet Count 129 k/uL (150-450)
[2021-12-20] MEDS ORDERED: Potassium Replacement Protocol 1 EACH MISC MISCELLANE PRN (04:46)
[2021-12-20] MEDS ORDERED: Magnesium Replacement Protocol 1 EACH MISC MISCELLANE PRN (05:16)
[2021-12-20] MEDS: DEXTROSE 5% IN WATER 1,000 ML with SODIUM BICARB (1 MEQ/ML) 150 ML IV SCH (05:20)
[2021-12-20] MEDS: POTASSIUM CHLORIDE 10 MEQ in WATER FOR INJECTION 1 100ML.BAG IVPB SCH ×4 (05:20→11:05)
[2021-12-20] MEDS: MAGNESIUM SULFATE-D5W PMX 1 GM in DEXTROSE/WATER 1 100ML.BAG IVPB SCH ×2 (05:27→06:32)
[2021-12-20] MEDS: CEFEPIME 2 GM in SODIUM CHLORIDE 0.9% 100 ML IVPB SCH (08:42)
[2021-12-20] MEDS: PANTOPRAZOLE 40 MG/10 ML VIAL IV SCH (08:42)
[2021-12-20] MEDS: THIAMINE 100 MG TAB PO SCH (08:42)
[2021-12-20] MEDS: HEPARIN SODIUM,PORCINE/PF 5,000 UNIT/0.5 ML SYRINGE SQ SCH ×3 (08:42→23:04)
[2021-12-20] MEDS: ONDANSETRON 4 MG/2 ML VIAL IVP PRN (08:46)
[2021-12-20 09:52] LABS: Ethanol Negative (Negative); Isopropanol Negative (Negative)
[2021-12-20] MEDS: POTASSIUM CHLORIDE ER 20 MEQ TAB.ER PO SCH ×4 (10:54→16:07)
[2021-12-20] MEDS: SODIUM CHLORIDE 0.9% 1,000 ML IV SCH ×2 (11:05→21:06)
[2021-12-20] MEDS ORDERED: CALCIUM CARBONATE 500 MG CHEWABLE PO PRN (11:18)
--- NOTE | 2021-12-20 11:19 | P.CNPUL ---
History of Present Illness Consult date: 12/20/21 Requesting physician: Esther Villalba Reason for consult: other (Critical care management) Chief complaint: Nausea and vomiting, sweating History of present illness: This is a pleasant 51-year-old female patient with a known history of ADHD, anxiety/depression, PTSD, chronic and ongoing tobacco dependence, the pew 0, marijuana use. She also has a history of heavy daily alcohol use mainly in the form of vodka approximately of half of a fifth per day. She had realize she was drinking more than usual and try to quit. Her last drink had been 2 days prior to her arrival here yesterday. She had developed nausea vomiting, diaphoresis and poor oral intake. Urine drug screen was positive for amphetamines, benzodiazepines, marijuana. Acetone positive. Initial bicarb 7. Anion gap 29. Amylase 354. Lactic acid 1.6. Glucose 27. She was treated in the emergency room was actually transferred to the intensive care unit. She is seen today in consultation. Awake and alert in no acute distress. She did have D5W with 3 A of sodium bicarb at 100 mL per hour. She is maintaining O2 saturations in the 90s on room air. She is awake and alert and oriented. No further nausea vomiting. No diaphoresis. Chest x-ray showed no acute pulmonary process. Today's labs reveal a white count of 5.4. Hemoglobin 12.2. MCV 102. Platelets 129. Sodium 133. Potassium 3.8. Chloride 99. Bicarb 25. Anion gap 9. BUN 5. Creatinine 0.54. Glucose 146. Amylase 148. He is afebrile. Slightly tachycardic. Sinus mechanism. Review of Systems REVIEW OF SYSTEMS: CONSTITUTIONAL: Diaphoresis from alcohol withdrawal. Denies any recent significant weight loss or weight gain. EYES: Denies change in vision. EARS, NOSE, MOUTH, THROAT: Denies headaches, denies sore throat. CARDIOVASCULAR: Denies chest pain, palpitations or syncopal episodes. RESPIRATORY: Denies shortness of breath, cough, congestion or hemoptysis. GASTROINTESTINAL: Positive for nausea, vomiting, poor appetite GENITOURINARY: Denies hematuria, denies infections. MUSKULOSKELETAL: Denies pain, denies swelling. INTEGUMENTARY: Denies rash, denies eczema. NEUROLOGICAL: Denies recent memory loss, no recent seizure activity. PSYCHIATRIC: Denies anxiety, denies depression. HEMATOLOGIC/LYMPHATIC: Denies anemia, denies enlarged lymph nodes. Past Medical History Past Medical History: Asthma, Pneumonia History of Any Multi-Drug Resistant Organisms: None Reported Past Surgical History: Tubal Ligation Past Anesthesia/Blood Transfusion Reactions: No Reported Reaction Past Psychological History: ADD/ADHD, Anxiety, Depression, PTSD Smoking Status: Current every day smoker, Vaper Past Alcohol Use History: Daily, Heavy Past Drug Use History: Marijuana - Past Family History Mother Family Medical History: Cancer, Coronary Artery Disease (CAD) Additional Family Medical History / Comment(s): Ovarian CA Father Family Medical History: Hyperlipidemia, Hypertension Medications and Allergies Home Medications Medication Instructions Recorded Confirmed Type Dextroamphetamine/Amphetamine 20 mg PO BID 12/22/20 12/19/21 History [Adderall] Cyclobenzaprine [Flexeril] 5 mg PO HS PRN 12/19/21 12/19/21 History Fluticasone Propionate 2 spray EA NOSTRIL DAILY PRN 12/19/21 12/19/21 History Levalbuterol Hfa Inhaler [Xopenex 2 puff INHALATION RT-Q6H PRN 12/19/21 12/19/21 History Hfa Inhaler] lamoTRIgine [LaMICtal] 25 mg PO BID 12/19/21 12/19/21 History Allergies Allergy/AdvReac Type Severity Reaction Status Date / Time Penicillins Allergy Unknown Verified 12/19/21 07:14 Childhood Physical Exam Vitals: Vital Signs Temp Pulse Pulse Resp BP Pulse Ox FiO2 12/20/21 09:22 45 12/20/21 09:00 111 H 19 109/71 96 12/20/21 08:00 98.9 F 109 H 22 132/83 94 L 12/20/21 07:00 108 H 18 125/77 95 12/20/21 06:00 105 H 18 113/86 95 12/20/21 05:00 105 H 19 134/86 95 12/20/21 04:00 99 F 105 H 16 107/64 96 12/20/21 03:00 112 H 19 122/82 96 12/20/21 02:00 110 H 14 128/86 97 12/20/21 01:00 108 H 19 101/69 98 12/20/21 00:01 108 H 18 101/69 96 12/20/21 00:00 98.8 F 107 H 17 109/68 96 12/19/21 23:30 112 H 17 122/65 97 12/19/21 23:00 115 H 16 104/54 94 L 12/19/21 22:30 120 H 22 99/52 96 12/19/21 22:00 120 H 21 100/49 95 12/19/21 21:30 121 H 22 126/76 97 12/19/21 21:00 114 H 17 118/73 99 12/19/21 20:30 18 118/74 99 12/19/21 20:00 99 F 117 H 16 122/76 99 12/19/21 19:30 114 H 20 120/76 98 12/19/21 19:00 117 H 20 111/75 99 12/19/21 18:30 112 H 16 126/79 98 12/19/21 18:00 113 H 16 116/74 98 12/19/21 17:30 116 H 18 118/67 99 12/19/21 17:00 115 H 19 136/75 99 12/19/21 16:30 24 133/79 99 12/19/21 16:00 98.3 F 113 H 114 H 19 125/79 99 12/19/21 15:30 115 H 18 121/63 98 12/19/21 15:00 118 H 18 116/74 99 12/19/21 14:30 113 H 16 123/73 99 12/19/21 14:00 115 H 114 H 17 127/75 99 12/19/21 13:10 97.8 F 128 H 19 121/98 100 12/19/21 13:00 98.1 F 113 H 20 121/98 99 Intake and Output 12/19/21 12/20/21 12/20/21 22:59 06:59 14:59 Intake Total 1300 1100 700 Output Total 425 1250 900 Balance 875 -150 -200 Intake: Intake, IV Titration 1300 1100 700 Amount Cefepime 2 gm In Sodium 100 Chloride 0.9% 100 ml @ 25 mls/hr IVPB Q8HR MARI Rx# :[id number] Dextrose 5% in Water 1, 1300 800 300 000 ml @ 100 mls/hr IV . [id number] MARI with Sodium Bicarb (1 Meq/ml) 150 ml Rx#:[id number] Magnesium Sulfate-D5w Pmx 100 100 1 gm In Dextrose/Water 1 100ml.bag @ 100 mls/hr IVPB Q1H MARI Rx#: [id number] Potassium Chloride 10 meq 100 200 In Water For Injection 1 100ml.bag @ 100 mls/hr IVPB Q1HR MARI Rx#: [id number] Sodium Chloride 0.9% 1, 100 000 ml @ 100 mls/hr IV . Q10H MARI Rx#:[id number] Output: Urine 425 1250 900 Other: Weight 68.039 kg 79.7 kg GENERAL EXAM: Alert, pleasant 51-year-old female, on room air, comfortable in no apparent distress. HEAD: Normocephalic. EYES: Normal reaction of pupils, equal size. NOSE: Clear with pink turbinates. THROAT: No erythema or exudates. NECK: No masses, no JVD. CHEST: No chest wall deformity. LUNGS: Equal air entry with no crackles, wheeze, rhonchi or dullness. CVS: S1 and S2 normal with no audible murmur, regular rhythm. ABDOMEN: No hepatosplenomegaly, normal bowel sounds, no guarding or rigidity. SPINE: No scoliosis or deformity SKIN: No rashes CENTRAL NERVOUS SYSTEM: No focal deficits, tone is normal in all 4 extremities. EXTREMITIES: There is no peripheral edema. No clubbing, no cyanosis. Peripheral pulses are intact. Results - Laboratory Findings CBC and BMP: 12/20/21 03:53 12/20/21 03:53 PT/INR, D-dimer PT 10.9 sec (9.0-12.0) 12/19/21 01:25 INR 1.0 (<1.2) 12/19/21 01:25 Abnormal lab findings: Abnormal Labs 12/19/21 12/19/21 12/19/21 01:25 01:25 03:29 WBC 15.1 H RBC Hct 46.2 H MCV 109.3 H MCH 36.9 H Plt Count Neutrophils # 13.6 H Lymphocytes # 0.6 L VBG pH 6.95 L* VBG pCO2 26 L VBG HCO3 6 L* Sodium 135 L Potassium Carbon Dioxide 7 L* BUN 18 H Glucose 27 L* POC Glucose (mg/dL) Calcium Phosphorus 7.4 H AST 117 H ALT 50 H Total Protein Albumin 5.3 H Amylase 354 H* Lipase 22 L Urine Protein Urine Ketones Urine Bacteria Urine Mucus Ur Amphetamines Screen U Benzodiazepines Scrn U Marijuana (THC) Screen Acetone, Qual 12/19/21 12/19/21 12/19/21 08:32 09:27 09:27 WBC RBC Hct MCV MCH Plt Count Neutrophils # Lymphocytes # VBG pH 7.02 L* VBG pCO2 24 L VBG HCO3 6 L* Sodium Potassium Carbon Dioxide 9 L* BUN Glucose 110 H POC Glucose (mg/dL) 116 H Calcium 7.9 L Phosphorus AST ALT Total Protein Albumin Amylase Lipase Urine Protein Urine Ketones Urine Bacteria Urine Mucus Ur Amphetamines Screen U Benzodiazepines Scrn U Marijuana (THC) Screen Acetone, Qual 12/19/21 12/19/21 12/19/21 10:42 10:46 11:09 WBC RBC Hct MCV MCH Plt Count Neutrophils # Lymphocytes # VBG pH VBG pCO2 VBG HCO3 Sodium Potassium Carbon Dioxide BUN Glucose POC Glucose (mg/dL) 151 H Calcium Phosphorus AST ALT Total Protein Albumin Amylase Lipase Urine Protein 1+ H Urine Ketones 4+ H Urine Bacteria Rare H Urine Mucus Rare H Ur Amphetamines Screen Detected H U Benzodiazepines Scrn Detected H U Marijuana (THC) Screen Detected H Acetone, Qual 28 H 12/19/21 12/19/21 12/19/21 12:22 12:57 16:26 WBC RBC Hct MCV MCH Plt Count Neutrophils # Lymphocytes # VBG pH VBG pCO2 VBG HCO3 Sodium 132 L Potassium Carbon Dioxide 16 L BUN Glucose 160 H POC Glucose (mg/dL) 189 H 177 H Calcium 7.9 L Phosphorus AST ALT Total Protein Albumin Amylase Lipase Urine Protein Urine Ketones Urine Bacteria Urine Mucus Ur Amphetamines Screen U Benzodiazepines Scrn U Marijuana (THC) Screen Acetone, Qual 12/19/21 12/19/21 12/19/21 16:26 16:44 20:03 WBC RBC Hct MCV MCH Plt Count Neutrophils # Lymphocytes # VBG pH 7.29 L VBG pCO2 VBG HCO3 19 L Sodium Potassium Carbon Dioxide BUN Glucose POC Glucose (mg/dL) 154 H 135 H Calcium Phosphorus AST ALT Total Protein Albumin Amylase Lipase Urine Protein Urine Ketones Urine Bacteria Urine Mucus Ur Amphetamines Screen U Benzodiazepines Scrn U Marijuana (THC) Screen Acetone, Qual 12/19/21 12/20/21 12/20/21 23:19 03:53 03:53 WBC RBC 3.22 L Hct 32.8 L MCV 102.0 H D MCH 37.7 H Plt Count 129 L D Neutrophils # Lymphocytes # 0.9 L VBG pH VBG pCO2 VBG HCO3 Sodium 133 L Potassium 2.8 L Carbon Dioxide BUN 5 L Glucose 146 H POC Glucose (mg/dL) 149 H Calcium 7.6 L Phosphorus AST 37 H ALT Total Protein 5.5 L Albumin 3.4 L Amylase 148 H Lipase Urine Protein Urine Ketones Urine Bacteria Urine Mucus Ur Amphetamines Screen U Benzodiazepines Scrn U Marijuana (THC) Screen Acetone, Qual 12/20/21 03:53 WBC RBC Hct MCV MCH Plt Count Neutrophils # Lymphocytes # VBG pH VBG pCO2 VBG HCO3 Sodium Potassium Carbon Dioxide BUN Glucose POC Glucose (mg/dL) 161 H Calcium Phosphorus AST ALT Total Protein Albumin Amylase Lipase Urine Protein Urine Ketones Urine Bacteria Urine Mucus Ur Amphetamines Screen U Benzodiazepines Scrn U Marijuana (THC) Screen Acetone, Qual - Diagnostic Findings Chest x-ray: image reviewed Assessment and Plan Assessment: Acute alcoholic ketoacidosis, improved with a bicarb drip and electrolyte replacement Daily alcohol use drinking half a fifth of vodka daily new Chronic and ongoing tobacco dependence Marijuana use History of anxiety/depression History of PTSD History of ADHD History of mild intermittent chronic bronchial asthma Plan: The patient was seen and evaluated Chest x-ray, labs and medications reviewed Discontinue bicarb drip Initiate normal saline at 100 ML's per hour Transfer out of the ICU to a regular medical floor Educated regarding the importance of alcohol cessation Educated regarding the importance of tobacco/marijuana cessation We will continue to follow and make further recommendations based on her clinical status I have personally seen and examined the patient, performed the documentation and the assessment and plan as written. Number of minutes spent on the visit: 20.
[2021-12-20 11:22] LABS: Glucose,Whole Blood 137 mg/dL (70-110)
--- NOTE | 2021-12-20 11:59 | P.PN ---
Subjective Progress Note Date: 12/20/21 The patient is a 51-year-old female with a PMH of alcohol abuse and COPD who presents to the emergency room accompanied by her for nausea, vomiting, and feeling ill. The patient reports that she had been drinking heavily since Thursday, and has essentially not eaten or drank anything except for alcohol. She reports drinking a fifth of vodka over 2-3 days for the past several years. The patient was tachycardic upon presentation to the emergency room with pulse 121. EKG reveals sinus tachycardia at 1 25 bpm. Laboratory evaluation was remarkable for leukocytosis of 15.1, VBG with pH 6.95, CO2 7, glucose 27, AST 117, ALT 50, and serum alcohol 10. The patient stated that her last drink was earlier today. The patient was given 1 amp of bicarb started on a D5 bicarb drip. Her hypoglycemia resolved. Repeat ABG shows pH is 7.02, bicarb of 9. The case was discussed with Dr. Smart who was agreeable to admit the patient to ICU for closer monitoring. Her acidosis improved significantly. The patient and examined. She reports anxiety. No nausea or vomiting. No abdominal pain. Complains of fatigue. General: non toxic, no distress, appears at stated age Derm: warm, dry Head: atraumatic, normocephalic, symmetric Eyes: EOMI, no lid lag, anicteric sclera Mouth: no lip lesion, mucus membranes moist Cardiovascular: Tachycardic, no murmur, positive posterior tibial pulse bilateral, Lungs: CTA bilateral, no rhonchi, no rales , no accessory muscle use Abdominal: soft, nontender to palpation Ext: no gross muscle atrophy, no edema, no contractures Neuro: no focal neuro deficits Psych: Alert, oriented #Alcoholic and starvation ketoacidosis On admission: Urinalysis shows 4+ ketones. Her bicarbonate deficit is 462.4. Her osmolar gap is 7.8. Acetone positive. Acidosis currently resolved. Bicarb drip discontinued. Transfer out of ICU. Start NS at 100 cc/hr. #Hypokalemia Replace and monitor. #Sepsis, unknown source of infection On admission: Patient is septic with tachycardia, leukocytosis and tachypnea. This could all be related to her electrolyte abnormalities. Her leukocytosis has resolved. Tachycardia improving. No signs of active infection. Cefepime discontinued. #Hypoglycemia Likely related to the above. Resolved. Continue IV hydration as above. Accu- Cheks every 4 hours. Hypoglycemic precautions. Fall, seizure and aspiration precautions. #Alcohol abuse with impending withdrawal #Transaminitis Continue CIWA protocol and given Ativan as needed. Patient encouraged cessation. Continue thiamine. #Gastritis Protonix 40 mg IV daily. DVT prophylaxis: Heparin Discussed with: Patient Anticipate DC in 1-2 days depending on clinical course. Objective - Vital Signs Vital signs: Vital Signs Temp 98.9 F 12/20/21 08:00 Pulse 107 H 12/20/21 10:00 Resp 19 12/20/21 11:00 BP 121/76 12/20/21 11:00 Pulse Ox 94 L 12/20/21 11:00 FiO2 45 12/20/21 09:22 Intake & Output 12/19/21 12/20/21 12/20/21 18:59 06:59 18:59 Intake Total 1250 1400 700 Output Total 425 1250 900 Balance 825 150 -200 Weight 79.7 kg Intake: Intake, IV Titration 1250 1400 700 Amount Cefepime 2 gm In Sodium 100 Chloride 0.9% 100 ml @ 25 mls/hr IVPB Q8HR MARI Rx# :[id number] Dextrose 5% in Water 1, 1250 1100 300 000 ml @ 100 mls/hr IV . [id number] MARI with Sodium Bicarb (1 Meq/ml) 150 ml Rx#:[id number] Magnesium Sulfate-D5w Pmx 100 100 1 gm In Dextrose/Water 1 100ml.bag @ 100 mls/hr IVPB Q1H MARI Rx#: [id number] Potassium Chloride 10 meq 100 200 In Water For Injection 1 100ml.bag @ 100 mls/hr IVPB Q1HR MARI Rx#: [id number] Sodium Chloride 0.9% 1, 100 000 ml @ 100 mls/hr IV . Q10H MARI Rx#:[id number] Output: Urine 425 1250 900 - Labs CBC & Chem 7: 12/20/21 03:53 12/20/21 03:53 Labs: Abnormal Lab Results - Last 24 Hours (Table) 12/19/21 12/19/21 12/19/21 Range/Units 11:09 12:22 12:57 RBC (3.80-5.40) m/uL Hct (34.0-46.0) % MCV (80.0-100.0) fL MCH (25.0-35.0) pg Plt Count (150-450) k/uL Lymphocytes # (1.0-4.8) k/uL VBG pH (7.31-7.41) VBG HCO3 (24-28) mmol/L Sodium (137-145) mmol/L Potassium (3.5-5.1) mmol/L Carbon Dioxide (22-30) mmol/L BUN (7-17) mg/dL Glucose (74-99) mg/dL POC Glucose (mg/dL) 189 H 177 H (70-110) mg/dL Calcium (8.4-10.2) mg/dL AST (14-36) U/L Total Protein (6.3-8.2) g/dL Albumin (3.5-5.0) g/dL Amylase (30-110) U/L Acetone, Qual 28 H (Negative) mg/dL 12/19/21 12/19/21 12/19/21 Range/Units 16:26 16:26 16:44 RBC (3.80-5.40) m/uL Hct (34.0-46.0) % MCV (80.0-100.0) fL MCH (25.0-35.0) pg Plt Count (150-450) k/uL Lymphocytes # (1.0-4.8) k/uL VBG pH 7.29 L (7.31-7.41) VBG HCO3 19 L (24-28) mmol/L Sodium 132 L (137-145) mmol/L Potassium (3.5-5.1) mmol/L Carbon Dioxide 16 L (22-30) mmol/L BUN (7-17) mg/dL Glucose 160 H (74-99) mg/dL POC Glucose (mg/dL) 154 H (70-110) mg/dL Calcium 7.9 L (8.4-10.2) mg/dL AST (14-36) U/L Total Protein (6.3-8.2) g/dL Albumin (3.5-5.0) g/dL Amylase (30-110) U/L Acetone, Qual (Negative) mg/dL 12/19/21 12/19/21 12/20/21 Range/Units 20:03 23:19 03:53 RBC (3.80-5.40) m/uL Hct (34.0-46.0) % MCV (80.0-100.0) fL MCH (25.0-35.0) pg Plt Count (150-450) k/uL Lymphocytes # (1.0-4.8) k/uL VBG pH (7.31-7.41) VBG HCO3 (24-28) mmol/L Sodium 133 L (137-145) mmol/L Potassium 2.8 L (3.5-5.1) mmol/L Carbon Dioxide (22-30) mmol/L BUN 5 L (7-17) mg/dL Glucose 146 H (74-99) mg/dL POC Glucose (mg/dL) 135 H 149 H (70-110) mg/dL Calcium 7.6 L (8.4-10.2) mg/dL AST 37 H (14-36) U/L Total Protein 5.5 L (6.3-8.2) g/dL Albumin 3.4 L (3.5-5.0) g/dL Amylase 148 H (30-110) U/L Acetone, Qual (Negative) mg/dL 12/20/21 12/20/21 12/20/21 Range/Units 03:53 03:53 11:20 RBC 3.22 L (3.80-5.40) m/uL Hct 32.8 L (34.0-46.0) % MCV 102.0 H D (80.0-100.0) fL MCH 37.7 H (25.0-35.0) pg Plt Count 129 L D (150-450) k/uL Lymphocytes # 0.9 L (1.0-4.8) k/uL VBG pH (7.31-7.41) VBG HCO3 (24-28) mmol/L Sodium (137-145) mmol/L Potassium (3.5-5.1) mmol/L Carbon Dioxide (22-30) mmol/L BUN (7-17) mg/dL Glucose (74-99) mg/dL POC Glucose (mg/dL) 161 H 137 H (70-110) mg/dL Calcium (8.4-10.2) mg/dL AST (14-36) U/L Total Protein (6.3-8.2) g/dL Albumin (3.5-5.0) g/dL Amylase (30-110) U/L Acetone, Qual (Negative) mg/dL
[2021-12-20] MEDS ORDERED: SIMETHICONE 80 MG CHEWABLE PO PRN (14:23)
[2021-12-20 18:37] LABS: Glucose,Whole Blood 106 mg/dL (70-110)
[2021-12-20] MEDS: SIMETHICONE 40 MG/0.6 ML DROPS 2,000 MG/30 ML BOTTLE PO SCH (21:06)
[2021-12-20 23:19] LABS: Glucose,Whole Blood 115 mg/dL (70-110)
[2021-12-21 02:38] VITALS: PULSE 102; RESP 17
[2021-12-21 04:21] LABS: Basophils % (A) 0 %; Eosinophils # (A) 0.1 k/uL (0-0.7); Eosinophils % (A) 1 %; HCT 32.5 % (34.0-46.0); Lymphocytes # (A) 1.2 k/uL (1.0-4.8); Lymphocytes % (A) 23 %; MCH 37.8 pg (25.0-35.0); MCHC 36.8 g/dL (31.0-37.0); MCV 102.7 fL (80.0-100.0); Mean Platelet Volume 8.3; Monocytes # (A) 0.3 k/uL (0-1.0); Monocytes % (A) 6 %; Neutrophils # (A) 3.6 k/uL (1.3-7.7); Neutrophils % (A) 69 %; Platelet Count 117 k/uL (150-450); RBC 3.16 m/uL (3.80-5.40); RDW 11.9 % (11.5-15.5); WBC 5.2 k/uL (3.8-10.6)
[2021-12-21 04:49] LABS: African American GFR (CKD) >90 (>60 ml/min/1.73 sqM); Anion Gap 7 mmol/L; Blood Urea Nitrogen <2 mg/dL (7-17); Calcium 8.3 mg/dL (8.4-10.2); Carbon Dioxide 24 mmol/L (22-30); Chloride 102 mmol/L (98-107); Glucose 92 mg/dL (74-99); Non-African American GFR(CKD) >90 (>60 ml/min/1.73 sqM); Potassium 3.2 mmol/L (3.5-5.1); Sodium 133 mmol/L (137-145)
[2021-12-21] MEDS: POTASSIUM CHLORIDE 10 MEQ in WATER FOR INJECTION 1 100ML.BAG IVPB SCH ×3 (05:08→07:38)
[2021-12-21] MEDS: SODIUM CHLORIDE 0.9% 1,000 ML IV SCH (05:08)
[2021-12-21 06:05] LABS: Glucose,Whole Blood 102 mg/dL (70-110)
[2021-12-21] MEDS: PANTOPRAZOLE 40 MG/10 ML VIAL IV SCH (07:38)
[2021-12-21] MEDS: THIAMINE 100 MG TAB PO SCH (07:38)
[2021-12-21] MEDS: HEPARIN SODIUM,PORCINE/PF 5,000 UNIT/0.5 ML SYRINGE SQ SCH (07:38)
[2021-12-21] MEDS: SIMETHICONE 40 MG/0.6 ML DROPS 2,000 MG/30 ML BOTTLE PO SCH (07:39)
[2021-12-21] MEDS: LORazepam 1 MG/0.5 ML VIAL IV PRN (07:41)
[2021-12-21 07:59] VITALS: BP 135/101; TEMP 98.2
--- NOTE | 2021-12-21 08:14 | P.DS ---
Providers Date of admission: 12/19/21 03:29 Expected date of discharge: 12/21/21 Attending physician: Prieto Mcarthur MD Consults: 12/19/21 11:46 Consult Physician Routine Consulting Provider: Kyle Smart Consult Reason/Comments: Ketoacidosis Do you want consulting provider notified?: Yes Primary care physician: Tahir [facility] Course: The patient is a 51-year-old female with a PMH of alcohol abuse and COPD who presents to the emergency room accompanied by her for nausea, vomiting, and feeling ill. The patient reports that she had been drinking heavily since Thursday, and has essentially not eaten or drank anything except for alcohol. She reports drinking a fifth of vodka over 2-3 days for the past several years. The patient was tachycardic upon presentation to the emergency room with pulse 121. EKG reveals sinus tachycardia at 1 25 bpm. Laboratory evaluation was remarkable for leukocytosis of 15.1, VBG with pH 6.95, CO2 7, glucose 27, AST 1 17, ALT 50, and serum alcohol 10. The patient stated that her last drink was earlier today. The patient was given 1 amp of bicarb started on a D5 bicarb drip. Her hypoglycemia resolved. Repeat ABG shows pH is 7.02, bicarb of 9. The case was discussed with Dr. Smart who was agreeable to admit the patient to ICU for closer monitoring. Her acidosis resolved with the above treatment. She was also started on cefepime for meeting SIRS criteria. Her leukocytosis resolved and tachycardia improved with correction of electrolytes. Her SIRS criteria was thought to be related to alcoholic ketoacidosis. All antibiotics were discontinued. The patient and examined on 12/21. She reported no complaints. States she felt at baseline. Plans to be discharged home today if able to tolerate oral intake. Her potassium is 3.2 which will be replacaed prior to discharge. She will be discharged home with Tums and Protonix for gastritis. She will also be discharged on potassium chloride supplements for 7 days. She is advised to follow up with her PCP within 1-2 days of discharge. Advised 3 meals a day. Advised to refrain from drinking alcohol. Pertinent studies include chest x-ray, EKG General: non toxic, no distress, appears at stated age Derm: warm, dry Head: atraumatic, normocephalic, symmetric Eyes: EOMI, no lid lag, anicteric sclera Mouth: no lip lesion, mucus membranes moist Cardiovascular: Tachycardic, no murmur, positive posterior tibial pulse bilateral, Lungs: CTA bilateral, no rhonchi, no rales , no accessory muscle use Abdominal: soft, nontender to palpation Ext: no gross muscle atrophy, no edema, no contractures Neuro: no focal neuro deficits Psych: Alert, oriented Discharge Diagnosis: #Alcoholic and starvation ketoacidosis #Hypokalemia #SIRS #Hypoglycemia #Alcohol abuse with impending withdrawal #Transaminitis #Gastritis This complex discharge took about 35 minutes to complete. Patient Condition at Discharge: Stable Plan - Discharge Summary Discharge Rx Participant: No New Discharge Prescriptions: New Calcium Carbonate [Tums] 500 mg PO TID PRN #90 tab PRN Reason: Heartburn Potassium Chloride ER [K-Dur 20] 20 meq PO DAILY #7 tab Pantoprazole [Protonix] 40 mg PO DAILY #30 tab Continue Dextroamphetamine/Amphetamine [Adderall] 20 mg PO BID Fluticasone Propionate 2 spray EA NOSTRIL DAILY PRN PRN Reason: Allergy Symptoms Levalbuterol Hfa Inhaler [Xopenex Hfa Inhaler] 2 puff INHALATION RT-Q6H PRN PRN Reason: Shortness Of Breath lamoTRIgine [LaMICtal] 25 mg PO BID Cyclobenzaprine [Flexeril] 5 mg PO HS PRN PRN Reason: Muscle Spasm Discharge Medication List Dextroamphetamine/Amphetamine [Adderall] 20 mg PO BID 12/22/20 [History] Cyclobenzaprine [Flexeril] 5 mg PO HS PRN 12/19/21 [History] Fluticasone Propionate 2 spray EA NOSTRIL DAILY PRN 12/19/21 [History] Levalbuterol Hfa Inhaler [Xopenex Hfa Inhaler] 2 puff INHALATION RT-Q6H PRN 12/19/21 [History] lamoTRIgine [LaMICtal] 25 mg PO BID 12/19/21 [History] Calcium Carbonate [Tums] 500 mg PO TID PRN #90 tab 12/21/21 [Rx] Pantoprazole [Protonix] 40 mg PO DAILY #30 tab 12/21/21 [Rx] Potassium Chloride ER [K-Dur 20] 20 meq PO DAILY #7 tab 12/21/21 [Rx] Follow up Appointment(s)/Referral(s): Tahir Shepard MD [Primary Care Provider] - 1-2 days Activity/Diet/Wound Care/Special Instructions: Patient to avoid alcohol consumption. Resources attached to discharge instructions for AA meetings, outpatient counseling and inpatient substance abuse rehab. Follow up with your PCP within 1-2 days of DC. Take all medications as advised. Please eat 3 meals a day. Refrain from alcohol use. Discharge/Stand Alone Forms: AA Meetings [facility], Who Do I Call?, Community Resources, Help In The Home, Outpatient Counseling, Inp Substance Abuse Fa cilities Discharge Disposition: HOME SELF-CARE
--- NOTE | 2021-12-21 11:57 | P.PN ---
Subjective Progress Note Date: 12/21/21 This is a pleasant 51-year-old female patient with a known history of ADHD, anxiety/depression, PTSD, chronic and ongoing tobacco dependence, the pew 0, marijuana use. She also has a history of heavy daily alcohol use mainly in the form of vodka approximately of half of a fifth per day. She had realize she was drinking more than usual and try to quit. Her last drink had been 2 days prior to her arrival here yesterday. She had developed nausea vomiting, diaphoresis and poor oral intake. Urine drug screen was positive for amphetamines, benzodiazepines, marijuana. Acetone positive. Initial bicarb 7. Anion gap 29. Amylase 354. Lactic acid 1.6. Glucose 27. She was treated in the emergency r oom was actually transferred to the intensive care unit. She is seen today in consultation. Awake and alert in no acute distress. She did have D5W with 3 A of sodium bicarb at 100 mL per hour. She is maintaining O2 saturations in the 90s on room air. She is awake and alert and oriented. No further nausea vomiting. No diaphoresis. Chest x-ray showed no acute pulmonary process. Today's labs reveal a white count of 5.4. Hemoglobin 12.2. MCV 102. Platelets 129. Sodium 133. Potassium 3.8. Chloride 99. Bicarb 25. Anion gap 9. BUN 5. Creatinine 0.54. Glucose 146. Amylase 148. He is afebrile. Slightly tachycardic. Sinus mechanism. The patient is seen today 12/21/2021 in follow-up in the intensive care unit. She is awake and alert in no acute distress. She is maintaining good O2 saturations in the 90s on room air. She's normal saline at 50 MLS per hour. She is calm and cooperative. White count 5.2. Hemoglobin 12.0. Platelets 117. Sodium 133. Potassium 3.2. BUN less than 2. Creatinine 0.49. Glucose 92. Potassium is being replaced. She is hoping to go home today. Objective - Vital Signs Vital signs: Vital Signs Temp 98.2 F 12/21/21 07:57 Pulse 102 H 12/21/21 07:57 Resp 17 12/21/21 07:57 BP 135/101 12/21/21 07:57 Pulse Ox 96 12/21/21 07:57 FiO2 45 12/20/21 09:22 Intake & Output 12/20/21 12/21/21 12/21/21 18:59 06:59 18:59 Intake Total 1500 Output Total 2100 250 Balance -600 -250 Intake: Intake, IV Titration 1500 Amount Dextrose 5% in Water 1, 300 000 ml @ 100 mls/hr IV . [id number] MARI with Sodium Bicarb (1 Meq/ml) 150 ml Rx#:[id number] Magnesium Sulfate-D5w Pmx 100 1 gm In Dextrose/Water 1 100ml.bag @ 100 mls/hr IVPB Q1H MARI Rx#: [id number] Potassium Chloride 10 meq 200 In Water For Injection 1 100ml.bag @ 100 mls/hr IVPB Q1HR MARI Rx#: [id number] Sodium Chloride 0.9% 1, 900 000 ml @ 100 mls/hr IV . Q10H MARI Rx#:[id number] Output: Urine 2100 250 Other: # Voids 1 - Exam GENERAL EXAM: Alert, pleasant 51-year-old female, on room air, comfortable in no apparent distress. HEAD: Normocephalic. EYES: Normal reaction of pupils, equal size. NOSE: Clear with pink turbinates. THROAT: No erythema or exudates. NECK: No masses, no JVD. CHEST: No chest wall deformity. LUNGS: Equal air entry with no crackles, wheeze, rhonchi or dullness. CVS: S1 and S2 normal with no audible murmur, regular rhythm. ABDOMEN: No hepatosplenomegaly, normal bowel sounds, no guarding or rigidity. SPINE: No scoliosis or deformity SKIN: No rashes CENTRAL NERVOUS SYSTEM: No focal deficits, tone is normal in all 4 extremities. EXTREMITIES: There is no peripheral edema. No clubbing, no cyanosis. Peripheral pulses are intact. - Labs CBC & Chem 7: 12/21/21 03:10 12/21/21 03:10 Labs: Abnormal Lab Results - Last 24 Hours (Table) 12/20/21 12/20/21 12/21/21 Range/Units 03:53 23:06 03:10 RBC 3.16 L (3.80-5.40) m/uL Hct 32.5 L (34.0-46.0) % MCV 102.7 H (80.0-100.0) fL MCH 37.8 H (25.0-35.0) pg Plt Count 117 L (150-450) k/uL Sodium (137-145) mmol/L Potassium (3.5-5.1) mmol/L BUN (7-17) mg/dL Creatinine (0.52-1.04) mg/dL POC Glucose (mg/dL) 115 H (70-110) mg/dL Calcium (8.4-10.2) mg/dL Procalcitonin 0.21 H (0.02-0.09) ng/mL 12/21/21 Range/Units 03:10 RBC (3.80-5.40) m/uL Hct (34.0-46.0) % MCV (80.0-100.0) fL MCH (25.0-35.0) pg Plt Count (150-450) k/uL Sodium 133 L (137-145) mmol/L Potassium 3.2 L (3.5-5.1) mmol/L BUN <2 L (7-17) mg/dL Creatinine 0.49 L (0.52-1.04) mg/dL POC Glucose (mg/dL) (70-110) mg/dL Calcium 8.3 L (8.4-10.2) mg/dL Procalcitonin (0.02-0.09) ng/mL Microbiology - Last 24 Hours (Table) 12/19/21 11:09 Blood Culture - Preliminary Blood No Growth after 24 hours Assessment and Plan Assessment: Acute alcoholic ketoacidosis, improved with a bicarb drip and electrolyte replacement Daily alcohol use drinking half a fifth of vodka daily new Chronic and ongoing tobacco dependence Marijuana use History of anxiety/depression History of PTSD History of ADHD History of mild intermittent chronic bronchial asthma Plan: The patient was seen and evaluated Labs and medications reviewed Educated regarding the importance of alcohol cessation Educated regarding the importance of tobacco/marijuana cessation He is cleared for discharge from the pulmonary/critical care standpoint I have personally seen and examined the patient, performed the documentation and the assessment and plan as written. Number of minutes spent on the visit: 10.
--- NOTE | 2021-12-24 08:47 | CDI ---
Documentation Clarification Form Date: 12/24/2021 08:28:00 AM From: Caroline Mcadams Admit Date: 12/19/2021 03:29:00 AM Patient Name: Paz Blanco Visit Number: [id number] Discharge Date: 12/21/2021 12:20:00 PM ATTENTION: The Clinical Documentation Specialists (CDI) and [facility] Coding Staff appreciate your assistance in clarifying documentation. Please respond to the clarification below the line at the bottom and electronically sign. The CDI & [facility] Coding staff will review the response and follow-up if needed. Please note: Queries are made part of the Legal Health Record. If you have any questions, please contact the author of this message via ITS. Dr. Esther Villalba Per PN's on 12/19 and 12/20, Sepsis unknown origin of infection. The patient presented with the following clinical indicators. On admission patient is septic with tachycardia, leukocytosis and tachypnea. Additional clarification regarding the etiology/cause of the clinical indicators is requested. History/Risk Factors: Amylase 354 likely concurrent pancreatitis, alcohol abuse with withdrawal and alcohol ketoacidosis also with starvation ketoacidosis. Clinical Indicators: WBC: 15.1 Lactic acid: 1.6 Vitals signs: 98.3F. 130 bpm, 15, 144/74, 99% RA Treatment: Cefepine ID Consult: Pulmonary consult Antibiotics: Cefepine In your professional opinion, please clarify if patient had sepsis or was it ruled out. [ ] Sepsis POA [ ] Sepsis, Not POA [ ] Sepsis ruled out [ ] Severe Sepsis with organ failure [ ] Septic Shock [ ] SIRS, without underlying infectious process [ ] Other, please specify [ ] Unable to determine SIRS Criteria: 2 or more of the following may indicate SIRS -Temperature < 96.8F (36C) or > 101.0F (38.3C) -Heart Rate > 90 bpm -Respiratory Rate > 20 breaths/min or PaCO2 < 32 mmHg -White Blood Cell Count > 12,000 or < 4,000 cells/mm3 or > 10% bands SIRS, without underlying infectious process MTDD
== END 2021-12-21 12:20 | disposition home or self-care (01) | DRG 896 ==
LOC: EC 00:49 → 3SCARD 03:29 → 2SICU 11:48
PROVIDERS: ADMIT Internal Medicine; ATTEND Internal Medicine
DX: F10.188 Alcohol abuse with other alcohol-induced disorder (principal); K85.90 Acute pancreatitis without necrosis or infection, unspecified; E87.29 Other acidosis; R65.10 Systemic inflammatory response syndrome (SIRS) of non-infectious origin without acute organ dysfunction; E16.2 Hypoglycemia, unspecified; E87.6 Hypokalemia; T73.0XXA Starvation, initial encounter; F10.139 Alcohol abuse with withdrawal, unspecified; R74.01 Elevation of levels of liver transaminase levels; F17.290 Nicotine dependence, other tobacco product, uncomplicated; F41.9 Anxiety disorder, unspecified; Z71.6 Tobacco abuse counseling; J45.20 Mild intermittent asthma, uncomplicated; F32.A Depression, unspecified; F43.12 Post-traumatic stress disorder, chronic; F90.9 Attention-deficit hyperactivity disorder, unspecified type; J44.9 Chronic obstructive pulmonary disease, unspecified; K29.70 Gastritis, unspecified, without bleeding; Z79.899 Other long term (current) drug therapy; Z80.41 Family history of malignant neoplasm of ovary; Z82.49 Family history of ischemic heart disease and other diseases of the circulatory system; Z88.0 Allergy status to penicillin; Z87.01 Personal history of pneumonia (recurrent)
CPT/HCPCS: 36415; 71046; 80048; 80053; 80306; 80320; 81001; 82009; 82150; 82803; 83605; 83690; 83735; 83930; 84100; 84132; 84145; 84600; 85025; 85610; 87040; 93005; 96361; 96372; 96374; 99285

== ENCOUNTER 2024-02-13 21:18 | Inpatient (IN) | payer BC ==
[2024-02-13] MEDS ORDERED: LORazepam 2 MG/ML INJ IV PRN (21:29)
[2024-02-13] MEDS ORDERED: LORazepam 1 MG TAB PO PRN (21:29)
--- NOTE | 2024-02-13 21:30 | ED ---
SOB HPI - General Chief Complaint: Shortness of Breath Stated Complaint: Chest pain, SOB Time Seen by Provider: 02/13/24 21:29 Source: patient, RN notes reviewed, old records reviewed Mode of arrival: EMS Limitations: no limitations, altered mental status - History of Present Illness Initial Comments: This is a 53-year-old female to the ER for evaluation of shortness of breath palpitations tachycardia heart racing and abdominal pain. Patient states that symptoms have been worsening throughout the day. She also has had symptoms of UTI for about 3 days was prescribed antibiotics today orally but has difficulty with oral pills and had significant vomiting unable to take medication. Patient also complaining of shortness of breath especially when she feels like her heart rate is racing and her heart rate gets elevated. I does have underlying history of asthma MD Complaint: shortness of breath, chest pain, anxiety (Palpitations) -: hour(s) Severity: mild Severity scale (1-10): 3 Consistency: intermittent Improves With: nothing Worsens With: nothing Known History Of: asthma Context: anxiety, recent illness (Feels like she has urinary tract infection), other Associated Symptoms: chest pain, palpitations, nausea/vomiting Treatments Prior to Arrival: none - Related Data Home Medications Medication Instructions Recorded Confirmed Dextroamphetamine/Amphetamine 20 mg PO BID 12/22/20 12/19/21 [Adderall] Cyclobenzaprine [Flexeril] 5 mg PO HS PRN 12/19/21 12/19/21 Fluticasone Propionate 2 spray EA NOSTRIL DAILY PRN 12/19/21 12/19/21 [Fluticasone Propionate Nasal [place]] Levalbuterol Hfa Inhaler [Xopenex 2 puff INHALATION RT-Q6H PRN 12/19/21 12/19/21 Hfa Inhaler] lamoTRIgine [LaMICtal] 25 mg PO BID 12/19/21 12/19/21 Previous Rx's Medication Instructions Recorded Calcium Carbonate [Tums] 500 mg PO TID PRN #90 tab 12/21/21 Pantoprazole [Protonix] 40 mg PO DAILY #30 tab 12/21/21 Potassium Chloride ER [K-Dur 20] 20 meq PO DAILY #7 tab 12/21/21 Allergies Allergy/AdvReac Type Severity Reaction Status Date / Time Penicillins Allergy Unknown Verified 12/19/21 07:14 Childhood Review of Systems ROS Statement: Those systems with pertinent positive or pertinent negative responses have been documented in the HPI. ROS Other: All systems not noted in ROS Statement are negative. Past Medical History Past Medical History: Asthma, Pneumonia History of Any Multi-Drug Resistant Organisms: None Reported Past Surgical History: Tubal Ligation Past Anesthesia/Blood Transfusion Reactions: No Reported Reaction Past Psychological History: ADD/ADHD, Anxiety, Depression, PTSD Smoking Status: Current every day smoker, Vaper Past Alcohol Use History: Daily, Heavy Past Drug Use History: Marijuana - Past Family History Mother Family Medical History: Cancer, Coronary Artery Disease (CAD) Additional Family Medical History / Comment(s): Ovarian CA Father Family Medical History: Hyperlipidemia, Hypertension General Exam General appearance: alert, in no apparent distress Head exam: Present: atraumatic, normocephalic, normal inspection Eye exam: Present: normal appearance, PERRL, EOMI. Absent: scleral icterus, conjunctival injection, periorbital swelling ENT exam: Present: normal exam, mucous membranes moist Neck exam: Present: normal inspection. Absent: tenderness, meningismus, lymphadenopathy Respiratory exam: Present: normal lung sounds bilaterally. Absent: respiratory distress, wheezes, rales, rhonchi, stridor Cardiovascular Exam: Present: regular rate, normal rhythm, normal heart sounds. Absent: systolic murmur, diastolic murmur, rubs, gallop, clicks GI/Abdominal exam: Present: soft, normal bowel sounds. Absent: distended, tenderness, guarding, rebound, rigid Extremities exam: Present: normal inspection, full ROM, normal capillary refill. Absent: tenderness, pedal edema, joint swelling, calf tenderness Back exam: Present: normal inspection Neurological exam: Present: alert, oriented X3, CN II-XII intact Psychiatric exam: Present: normal affect, normal mood Skin exam: Present: warm, dry, intact, normal color. Absent: rash Course Vital Signs 02/13/24 02/13/24 21:20 21:58 Temperature 97.8 F Pulse Rate 106 H 82 Respiratory 18 15 Rate Blood Pressure 139/81 139/84 O2 Sat by Pulse 98 98 Oximetry - Reevaluation(s) Reevaluation #1: 02/13/24 21:58 Medical records reviewed Reevaluation #2: 02/13/24 23:18 Patient symptoms really unchanged, still short of breath with palpitations heart rate significantly bleeding with change of position Reevaluation #3: 02/13/24 23:18 Informed of results and questions answered Reevaluation #4: Was pt. sent in by a medical professional or institution ([facility]RETCH[facility] Lorenzo, BEVELER, urgent care, hospital, or residential...) When possible be specific @ -no Did you speak to anyone other than the patient for history (EMS, parent, family, police, friend...)? What history was obtained from this source @ -no Did you review nursing and triage notes (agree or disagree)? Why? @ -agree Are old charts reviewed (outside hosp., previous admission, EMS record, old EKG, old radiological studies, urgent care reports/EKG's, residential records)? Report findings @ -yes Differential Diagnosis (chest pain, altered mental status, abdominal pain women, abdominal pain men, vaginal bleeding, weakness, fever, dyspnea, syncope, headache, dizziness, GI bleed, back pain, seizure, CVA, palpatations, mental health, musculoskeletal)? @ -prior EKG interpreted by me (3pts min.). @ -yes X-rays interpreted by me (1pt min.). @ -yes negative for acute disease CT interpreted by me (1pt min.). @ -no U/S interpreted by me (1pt. min.). @ -no What testing was considered but not performed or refused? (CT, X-rays, U/S, labs)? Why? @ -none What meds were considered but not given or refused? Why? @ -none Did you discuss the management of the patient with other professionals (professionals i.e. GRETCH[facility] Lorenzo, BEVELER, lab, RT, psych nurse, medical social worker, mechanical spreader operator, teacher, chief quality officer, major case detective)? Give summary @ -no Was smoking cessation discussed for >3mins.? @ -no Was critical care preformed (if so, how long)? @ -no Were there social determinants of health that impacted care today? How? (Homelessness, low income, unemployed, alcoholism, drug addiction, transportat ion, low edu. Level, literacy, decrease access to med. care, mcc, rehab)? @ -none Was there de-escalation of care discussed even if they declined (Discuss DNR or withdrawal of care, Hospice)? DNR status @ -no What co-morbidities impacted this encounter? (DM, HTN, Smoking, COPD, CAD, Cancer, CVA, ARF, Chemo, Hep., AIDS, mental health diagnosis, sleep apnea, morbid obesity)? @ -none Was patient admitted / discharged? Hospital course, mention meds given and route, prescriptions, significant lab abnormalities, going to OR and other pertinent info. @ - Undiagnosed new problem with uncertain prognosis? @ -no Drug Therapy requiring intensive monitoring for toxicity (Heparin, Nitro, Insulin, Cardizem)? @ -no Were any procedures done? @ -no Diagnosis/symptom? @ - Acute, or Chronic, or Acute on Chronic? @ -Acute Uncomplicated (without systemic symptoms) or Complicated (systemic symptoms)? @ -Complicated Side effects of treatment? @ -no Exacerbation, Progression, or Severe Exacerbation? @ -exacerbation Poses a threat to life or bodily function? How? (Chest pain, USA, AR, pneumonia, PE, COPD, DKA, ARF, appy, cholecystitis, CVA, Diverticulitis, Homicidal, Suicidal, threat to staff... and all critical care pts) @ -yes Reevaluation #5: Differential Dyspnea: Coronary syndrome, arrhythmia, tamponade, asthma, COPD, pulmonary embolism, pneumonia, pneumothorax, pulmonary effusion, anaphylaxis, diabetic ketoacidosis, flailed chest, pulmonary contusion, diaphragmatic rupture, anemia, neuromuscular, this is not meant to be an all-inclusive list. - Consultations Consultation #1: With sound who agrees to admit this patient Medical Decision Making - Medical Decision Making 53 female to ER for evaluation of chest pain palpitations tachycardia shortness of breath with underlying asthma history. - Lab Data Result diagrams: 02/13/24 21:56 02/13/24 21:56 Lab Results 02/13/24 02/13/24 02/13/24 Range/Units 19:46 21:56 21:56 WBC 7.3 (3.8-10.6) k/uL RBC 3.92 (3.80-5.40) m/uL Hgb 14.5 (11.4-16.0) gm/dL Hct 42.4 (34.0-46.0) % MCV 108.1 H (80.0-100.0) fL MCH 37.0 H (25.0-35.0) pg MCHC 34.3 (31.0-37.0) g/dL RDW 12.0 (11.5-15.5) % Plt Count 236 (150-450) k/uL MPV 7.6 Neutrophils % 85 % Lymphocytes % 9 % Monocytes % 4 % Eosinophils % 1 % Basophils % 1 % Neutrophils # 6.2 (1.3-7.7) k/uL Lymphocytes # 0.7 L (1.0-4.8) k/uL Monocytes # 0.3 (0-1.0) k/uL Eosinophils # 0.1 (0-0.7) k/uL Basophils # 0.0 (0-0.2) k/uL Macrocytosis Moderate PT 10.4 (10.0-12.5) sec INR 0.9 (<1.2) APTT 24.4 (22.0-30.0) sec Sodium (137-145) mmol/L Potassium (3.5-5.1) mmol/L Chloride (98-107) mmol/L Carbon Dioxide (22-30) mmol/L Anion Gap mmol/L BUN (7-17) mg/dL Creatinine (0.52-1.04) mg/dL Est GFR (CKD-EPI)AfAm (>60 ml/min/1.73 sqM) Est GFR (CKD-EPI)NonAf (>60 ml/min/1.73 sqM) Glucose (74-99) mg/dL Plasma Lactic Acid Celestino (0.7-2.0) mmol/L Calcium (8.4-10.2) mg/dL Phosphorus (2.5-4.5) mg/dL Magnesium (1.6-2.3) mg/dL Total Bilirubin (0.2-1.3) mg/dL AST (14-36) U/L ALT (4-34) U/L Alkaline Phosphatase (38-126) U/L Troponin I (0.000-0.034) ng/mL NT-Pro-B Natriuret Pep pg/mL Total Protein (6.3-8.2) g/dL Albumin (3.5-5.0) g/dL Lipase (23-300) U/L TSH 1.200 (0.465-4.680) mIU/L Urine RBC (0-5) /hpf Urine WBC (0-5) /hpf Urine WBC Clumps (None) /hpf Ur Squamous Epith Cells (0-4) /hpf Urine Bacteria (None) /hpf Hyaline Casts (0-2) /lpf Urine Mucus (None) /hpf Serum Alcohol mg/dL 02/13/24 02/13/24 02/13/24 Range/Units 21:56 21:56 21:56 WBC (3.8-10.6) k/uL RBC (3.80-5.40) m/uL Hgb (11.4-16.0) gm/dL Hct (34.0-46.0) % MCV (80.0-100.0) fL MCH (25.0-35.0) pg MCHC (31.0-37.0) g/dL RDW (11.5-15.5) % Plt Count (150-450) k/uL MPV Neutrophils % % Lymphocytes % % Monocytes % % Eosinophils % % Basophils % % Neutrophils # (1.3-7.7) k/uL Lymphocytes # (1.0-4.8) k/uL Monocytes # (0-1.0) k/uL Eosinophils # (0-0.7) k/uL Basophils # (0-0.2) k/uL Macrocytosis PT (10.0-12.5) sec INR (<1.2) APTT (22.0-30.0) sec Sodium 134 L (137-145) mmol/L Potassium 3.9 (3.5-5.1) mmol/L Chloride 101 (98-107) mmol/L Carbon Dioxide 16 L (22-30) mmol/L Anion Gap 17 mmol/L BUN 5 L (7-17) mg/dL Creatinine 0.55 (0.52-1.04) mg/dL Est GFR (CKD-EPI)AfAm >90 (>60 ml/min/1.73 sqM) Est GFR (CKD-EPI)NonAf >90 (>60 ml/min/1.73 sqM) Glucose 95 (74-99) mg/dL Plasma Lactic Acid Celestino 3.0 H* (0.7-2.0) mmol/L Calcium 9.8 (8.4-10.2) mg/dL Phosphorus 3.5 (2.5-4.5) mg/dL Magnesium 1.7 (1.6-2.3) mg/dL Total Bilirubin 1.4 H (0.2-1.3) mg/dL AST 113 H (14-36) U/L ALT 64 H (4-34) U/L Alkaline Phosphatase 121 (38-126) U/L Troponin I <0.012 (0.000-0.034) ng/mL NT-Pro-B Natriuret Pep 22 pg/mL Total Protein 8.4 H (6.3-8.2) g/dL Albumin 5.4 H (3.5-5.0) g/dL Lipase 43 (23-300) U/L TSH (0.465-4.680) mIU/L Urine RBC (0-5) /hpf Urine WBC (0-5) /hpf Urine WBC Clumps (None) /hpf Ur Squamous Epith Cells (0-4) /hpf Urine Bacteria (None) /hpf Hyaline Casts (0-2) /lpf Urine Mucus (None) /hpf Serum Alcohol 17 mg/dL 02/13/24 Range/Units 22:45 WBC (3.8-10.6) k/uL RBC (3.80-5.40) m/uL Hgb (11.4-16.0) gm/dL Hct (34.0-46.0) % MCV (80.0-100.0) fL MCH (25.0-35.0) pg MCHC (31.0-37.0) g/dL RDW (11.5-15.5) % Plt Count (150-450) k/uL MPV Neutrophils % % Lymphocytes % % Monocytes % % Eosinophils % % Basophils % % Neutrophils # (1.3-7.7) k/uL Lymphocytes # (1.0-4.8) k/uL Monocytes # (0-1.0) k/uL Eosinophils # (0-0.7) k/uL Basophils # (0-0.2) k/uL Macrocytosis PT (10.0-12.5) sec INR (<1.2) APTT (22.0-30.0) sec Sodium (137-145) mmol/L Potassium (3.5-5.1) mmol/L Chloride (98-107) mmol/L Carbon Dioxide (22-30) mmol/L Anion Gap mmol/L BUN (7-17) mg/dL Creatinine (0.52-1.04) mg/dL Est GFR (CKD-EPI)AfAm (>60 ml/min/1.73 sqM) Est GFR (CKD-EPI)NonAf (>60 ml/min/1.73 sqM) Glucose (74-99) mg/dL Plasma Lactic Acid Celestino (0.7-2.0) mmol/L Calcium (8.4-10.2) mg/dL Phosphorus (2.5-4.5) mg/dL Magnesium (1.6-2.3) mg/dL Total Bilirubin (0.2-1.3) mg/dL AST (14-36) U/L ALT (4-34) U/L Alkaline Phosphatase (38-126) U/L Troponin I (0.000-0.034) ng/mL NT-Pro-B Natriuret Pep pg/mL Total Protein (6.3-8.2) g/dL Albumin (3.5-5.0) g/dL Lipase (23-300) U/L TSH (0.465-4.680) mIU/L Urine RBC 4 (0-5) /hpf Urine WBC 171 H (0-5) /hpf Urine WBC Clumps Moderate H (None) /hpf Ur Squamous Epith Cells 1 (0-4) /hpf Urine Bacteria Many H (None) /hpf Hyaline Casts 3 H (0-2) /lpf Urine Mucus Few H (None) /hpf Serum Alcohol mg/dL - EKG Data -: EKG Interpreted by Me (EKG is sinus 84 MI 128 QRS 101 QTc 427) - Radiology Data Radiology results: report reviewed, image reviewed Disposition Clinical Impression: Dehydration, Gastroenteritis, Asthma with acute exacerbation, Palpitations, Tachycardia, Chest pain, Abdominal pain, Alcoholic ketoacidosis, UTI (urinary tract infection) Disposition: ADMITTED IP TO THIS HOSP Condition: Good Is patient prescribed a controlled substance at d/c from ED?: No Referrals: Tahir Shepard MD [Primary Care Provider] - 1-2 days Time of Disposition: 23:00
[2024-02-13] MEDS: IPRATROPIUM-ALBUTEROL 3 ML NEB INHALATION STA (21:38)
[2024-02-13] MEDS: SODIUM CHLORIDE 0.9% 1,000 ML IV STA ×2 (21:44→22:46)
[2024-02-13] MEDS: SODIUM CHLORIDE 0.9% 500 ML 500 ML IV STA (21:45)
[2024-02-13] MEDS: LORazepam 2 MG/ML INJ IV STA (21:46)
[2024-02-13] MEDS: methylPREDNISolone SOD SUCCI 125 MG/2 ML VIAL IV STA (21:47)
--- NOTE | 2024-02-13 22:07 | XR ---
EXAMINATION TYPE: XR chest 2V DATE OF EXAM: 02/13/2024 10:02 PM COMPARISON: Previous chest radiograph dated 12/19/2021. CLINICAL INDICATION: Female, 53 years old with history of difficulty breathing; [facility] TECHNIQUE: XR chest 2V Frontal and lateral views of the chest. FINDINGS: Lungs/Pleura: There is no evidence of pleural effusion, focal consolidation, or pneumothorax. Pulmonary vascularity: Unremarkable. Heart/mediastinum: Cardiomediastinal silhouette is unremarkable. Musculoskeletal: No acute osseous pathology. Other findings: None IMPRESSION: No acute cardiopulmonary disease/process. [facility], , 02/13/2024 10:05 PM
[2024-02-13 22:09] LABS: Basophils % (A) 1 %; Eosinophils # (A) 0.1 k/uL (0-0.7); Eosinophils % (A) 1 %; HCT 42.4 % (34.0-46.0); HGB 14.5 gm/dL (11.4-16.0); Lymphocytes # (A) 0.7 k/uL (1.0-4.8); Lymphocytes % (A) 9 %; MCHC 34.3 g/dL (31.0-37.0); MCV 108.1 fL (80.0-100.0); Macrocytosis Moderate; Mean Platelet Volume 7.6; Monocytes # (A) 0.3 k/uL (0-1.0); Monocytes % (A) 4 %; Neutrophils # (A) 6.2 k/uL (1.3-7.7); Neutrophils % (A) 85 %; Platelet Count 236 k/uL (150-450); RBC 3.92 m/uL (3.80-5.40); WBC 7.3 k/uL (3.8-10.6)
[2024-02-13 22:20] LABS: ALT 64 U/L (4-34); AST 113 U/L (14-36); African American GFR (CKD) >90 (>60 ml/min/1.73 sqM); Albumin 5.4 g/dL (3.5-5.0); Alcohol 17 mg/dL; Alkaline Phosphatase 121 U/L (38-126); Anion Gap 17 mmol/L; Blood Urea Nitrogen 5 mg/dL (7-17); Calcium 9.8 mg/dL (8.4-10.2); Carbon Dioxide 16 mmol/L (22-30); Chloride 101 mmol/L (98-107); Glucose 95 mg/dL (74-99); Lipase 43 U/L (23-300); Magnesium 1.7 mg/dL (1.6-2.3); Non-African American GFR(CKD) >90 (>60 ml/min/1.73 sqM); Phosphorus 3.5 mg/dL (2.5-4.5); Potassium 3.9 mmol/L (3.5-5.1); Sodium 134 mmol/L (137-145); Total Bilirubin 1.4 mg/dL (0.2-1.3); Total Protein 8.4 g/dL (6.3-8.2)
[2024-02-13 22:27] LABS: NT-Pro-B-Type Natriuretic Pept 22 pg/mL
[2024-02-13 23:00] LABS: INR 0.9 (<1.2); Partial Thromboplastin Time 24.4 sec (22.0-30.0); Prothrombin Time 10.4 sec (10.0-12.5)
[2024-02-13 23:02] LABS: Bacteria,Urine Many /hpf; Hyaline Casts,Urine 3 /lpf (0-2); Mucus,Urine Few /hpf; RBC,Urine 4 /hpf (0-5); Squamous Epithelial Cell,Urine 1 /hpf (0-4); WBC,Urine 171 /hpf (0-5)
[2024-02-13] MEDS ORDERED: NALOXONE 0.4 MG/ML 1 ML VIAL IV PRN (23:16)
[2024-02-13 23:24] LABS: Appearance,Urine Slightly Cloudy (Clear); Color,Urine Orange
[2024-02-14] MEDS: SODIUM CHLORIDE 0.9% 1,000 ML IV SCH (00:01)
[2024-02-14] MEDS: PANTOPRAZOLE 40 MG/10 ML VIAL IV SCH (00:07)
[2024-02-14] MEDS: LORazepam 2 MG/ML INJ IV PRN ×2 (00:07→13:36)
--- NOTE | 2024-02-14 02:43 | CT ---
EXAM: CT Abdomen and Pelvis With Intravenous Contrast CLINICAL HISTORY: ITS.REASON CT Reason: pain TECHNIQUE: Axial computed tomography images of the abdomen and pelvis with intravenous contrast. CTDI is 14.5 mGy and DLP is 658.5 mGy-cm. This CT exam was performed using one or more of the following dose reduction techniques: automated exposure control, adjustment of the mA and/or kV according to patient size, and/or use of iterative reconstruction technique. COMPARISON: No relevant prior studies available. FINDINGS: Lung bases: Unremarkable. No mass. No consolidation. ABDOMEN: Liver: Hepatic steatosis. Gallbladder and bile ducts: Unremarkable. No calcified stones. No ductal dilation. Pancreas: Unremarkable. No mass. No ductal dilation. Spleen: Unremarkable. No splenomegaly. Adrenals: Unremarkable. No mass. Kidneys and ureters: Unremarkable. No solid mass. No hydronephrosis. Stomach and bowel: Diverticulosis, without acute diverticulitis. No small bowel obstruction. No free intraperitoneal air. PELVIS: Appendix: No findings to suggest acute appendicitis. Bladder: Wall thickening of the urinary bladder, correlate for UTI. Reproductive: Unremarkable as visualized. ABDOMEN and PELVIS: Intraperitoneal space: Unremarkable. No free air. No significant fluid collection. Bones/joints: No acute fracture. No dislocation. Soft tissues: Unremarkable. Vasculature: Unremarkable. No abdominal aortic aneurysm. Lymph nodes: Unremarkable. No enlarged lymph nodes. IMPRESSION: 1. Wall thickening of the urinary bladder, correlate for UTI. 2. Diverticulosis, without acute diverticulitis. No small bowel obstruction. No free intraperitoneal air.
[2024-02-14] MEDS: MORPHINE SULFATE 4 MG/ML SYRINGE IV PRN (03:44)
[2024-02-14 05:10] LABS: Basophils % (A) 0 %; Eosinophils # (A) 0.1 k/uL (0-0.7); Eosinophils % (A) 1 %; HCT 39.6 % (34.0-46.0); HGB 13.8 gm/dL (11.4-16.0); Lymphocytes # (A) 0.3 k/uL (1.0-4.8); Lymphocytes % (A) 3 %; MCH 38.2 pg (25.0-35.0); MCHC 34.9 g/dL (31.0-37.0); MCV 109.7 fL (80.0-100.0); Macrocytosis Moderate; Mean Platelet Volume 7.6; Monocytes # (A) 0.1 k/uL (0-1.0); Monocytes % (A) 1 %; Neutrophils % (A) 95 %; Platelet Count 218 k/uL (150-450); RBC 3.61 m/uL (3.80-5.40); RDW 12.1 % (11.5-15.5); WBC 8.4 k/uL (3.8-10.6)
[2024-02-14 05:31] LABS: ALT 57 U/L (4-34); AST 91 U/L (14-36); African American GFR (CKD) >90 (>60 ml/min/1.73 sqM); Albumin 5.2 g/dL (3.5-5.0); Alkaline Phosphatase 99 U/L (38-126); Anion Gap 13 mmol/L; Blood Urea Nitrogen 5 mg/dL (7-17); Calcium 9.3 mg/dL (8.4-10.2); Carbon Dioxide 21 mmol/L (22-30); Chloride 102 mmol/L (98-107); Glucose 152 mg/dL (74-99); Magnesium 1.8 mg/dL (1.6-2.3); Non-African American GFR(CKD) >90 (>60 ml/min/1.73 sqM); Phosphorus 3.9 mg/dL (2.5-4.5); Potassium 4.3 mmol/L (3.5-5.1); Sodium 136 mmol/L (137-145); Total Bilirubin 1.4 mg/dL (0.2-1.3); Total Protein 8.1 g/dL (6.3-8.2)
--- NOTE | 2024-02-14 07:04 | P.HPIM ---
History of Present Illness H&P Date: 02/13/24 Chief Complaint: palpitations 53-year-old female with alcohol abuse Patient starts the conversation with cholesterol of concerns and complaints she does see a doctor as an outpatient however she feels that she never gets enough time to talk to them. She reports concerns regarding palpitations and feeling nauseous all the time which has been going on recently denies any vomiting denies any fevers or chills denies any abdominal pain, then she starts adding that she had concerns for celiac disease and she has been avoiding gluten as she gets bloated and diarrhea with gluten however recently it was he also discovered that she is lactose intolerant and she is trying to avoid that too Then she started talking about feeling fatigued all the time lack of motivation and energy denies any suicidal ideation but she claims that she has not left home since . She claims that she eats a clean diet healthy is much as possible she tries to avoid many factors food and natural foods. She has cut back on her drinking down to 1-2 drinks a day she understands that this could be a problem and she is trying to cut back completely. Then she starts asking if there is a chance that she has a cancer when I asked her about age-appropriate cancer screening like breast cancer Pap smears and colonoscopy I did not get a clear answer from her as the patient jumps subjects frequently Overall she looks energetic during the interview moves around the bed normally and fast capable of having a good meaningful conversation overall with main concerns regarding possible urinary tract infection as she has been having dysuria and frequent urination along with the concerns regarding palpitations with feeling nauseous most of the time. Patient adds that she has been trying to solve some of her problems with Adderall not clear to me if she continues to take this at this time or no review of systems Pertinent positives as noted in HPI. All other systems were reviewed and are negative on exam Constitutional: No acute distress, conversant, pleasant Eyes: Anicteric sclerae, moist conjunctiva, Pupils equal round reactive to light ENMT: NC/AT Oropharynx clear, no erythema, or exudates Neck: Supple, suspected slightly enlarged thyroid nontender, or JVD No carotid bruits No thyromegaly Lungs: Clear to auscultation Clear to percussion Normal respiratory effort, no accessory muscle use Cardiovascular: Heart tachycardia regular No murmurs, gallops, or rubs No peripheral edema Abdominal: Soft Nontender, no guarding, rebound or rigidity Abdomen moving with respiration Normoactive bowel sounds No hepatomegaly, No splenomegaly No palpable mass No abdominal wall hernia noted Extremities: No digital cyanosis No clubbing Pedal pulses intact and symmetrical Radial pulses intact and symmetrical No calf tenderness Psychiatric: Alert and oriented to person, place and time Appropriate affect fair judgement Neuro Muscles Strength 5/5 in all 4 extremities Sensation to light touch grossly present throughout Cranial nerves II-XII grossly intact Past Medical History Past Medical History: Asthma, Pneumonia History of Any Multi-Drug Resistant Organisms: None Reported Past Surgical History: Tubal Ligation Past Anesthesia/Blood Transfusion Reactions: No Reported Reaction Past Psychological History: ADD/ADHD, Anxiety, Depression, PTSD Smoking Status: Current every day smoker, Vaper Past Alcohol Use History: Daily, Heavy Past Drug Use History: Marijuana - Past Family History Mother Family Medical History: Cancer, Coronary Artery Disease (CAD) Additional Family Medical History / Comment(s): Ovarian CA Father Family Medical History: Hyperlipidemia, Hypertension Medications and Allergies Home Medications Medication Instructions Recorded Confirmed Type Dextroamphetamine/Amphetamine 20 mg PO BID 12/22/20 12/19/21 History [Adderall] Cyclobenzaprine [Flexeril] 5 mg PO HS PRN 12/19/21 12/19/21 History Fluticasone Propionate 2 spray EA NOSTRIL DAILY PRN 12/19/21 12/19/21 History [Fluticasone Propionate Nasal [place]] Levalbuterol Hfa Inhaler [Xopenex 2 puff INHALATION RT-Q6H PRN 12/19/21 12/19/21 History Hfa Inhaler] lamoTRIgine [LaMICtal] 25 mg PO BID 12/19/21 12/19/21 History Calcium Carbonate [Tums] 500 mg PO TID PRN #90 tab 12/21/21 Rx Pantoprazole [Protonix] 40 mg PO DAILY #30 tab 12/21/21 Rx Potassium Chloride ER [K-Dur 20] 20 meq PO DAILY #7 tab 12/21/21 Rx Allergies Allergy/AdvReac Type Severity Reaction Status Date / Time Penicillins Allergy Unknown Verified 12/19/21 07:14 Childhood Physical Exam Vitals: Vital Signs Temp Pulse Resp BP Pulse Ox 02/14/24 03:38 97.6 F 98 17 132/86 97 02/14/24 00:06 88 16 115/69 97 02/13/24 21:58 82 15 139/84 98 02/13/24 21:20 97.8 F 106 H 18 139/81 98 Intake and Output 02/13/24 02/13/24 02/14/24 14:59 22:59 06:59 Other: Weight 63.503 kg Results CBC & Chem 7: 02/14/24 05:01 02/14/24 05:01 Labs: Abnormal Lab Results - Last 24 Hours (Table) 02/13/24 02/13/24 02/13/24 Range/Units 21:56 21:56 21:56 RBC (3.80-5.40) m/uL MCV 108.1 H (80.0-100.0) fL MCH 37.0 H (25.0-35.0) pg Neutrophils # (1.3-7.7) k/uL Lymphocytes # 0.7 L (1.0-4.8) k/uL Sodium 134 L (137-145) mmol/L Carbon Dioxide 16 L (22-30) mmol/L BUN 5 L (7-17) mg/dL Creatinine (0.52-1.04) mg/dL Glucose (74-99) mg/dL Plasma Lactic Acid Celestino 3.0 H* (0.7-2.0) mmol/L Total Bilirubin 1.4 H (0.2-1.3) mg/dL AST 113 H (14-36) U/L ALT 64 H (4-34) U/L Total Protein 8.4 H (6.3-8.2) g/dL Albumin 5.4 H (3.5-5.0) g/dL Urine Appearance (Clear) Urine WBC (0-5) /hpf Urine WBC Clumps (None) /hpf Urine Bacteria (None) /hpf Hyaline Casts (0-2) /lpf Urine Mucus (None) /hpf 02/13/24 02/14/24 02/14/24 Range/Units 22:45 05:01 05:01 RBC 3.61 L (3.80-5.40) m/uL MCV 109.7 H (80.0-100.0) fL MCH 38.2 H (25.0-35.0) pg Neutrophils # 8.0 H (1.3-7.7) k/uL Lymphocytes # 0.3 L (1.0-4.8) k/uL Sodium 136 L (137-145) mmol/L Carbon Dioxide 21 L (22-30) mmol/L BUN 5 L (7-17) mg/dL Creatinine 0.51 L (0.52-1.04) mg/dL Glucose 152 H (74-99) mg/dL Plasma Lactic Acid Celestino (0.7-2.0) mmol/L Total Bilirubin 1.4 H (0.2-1.3) mg/dL AST 91 H (14-36) U/L ALT 57 H (4-34) U/L Total Protein (6.3-8.2) g/dL Albumin 5.2 H (3.5-5.0) g/dL Urine Appearance Slightly Cloudy H (Clear) Urine WBC 171 H (0-5) /hpf Urine WBC Clumps Moderate H (None) /hpf Urine Bacteria Many H (None) /hpf Hyaline Casts 3 H (0-2) /lpf Urine Mucus Few H (None) /hpf Assessment and Plan Assessment: 53-year-old female with alcohol abuse coming in for evaluation of palpitations and feeling nauseous along with dysuria I discussed case with ED doctor and accepted the admission for urinary tract infection and tachycardia with anticipated length of stay less than 2 midnights Urinary tract infection Follow-up urine cultures Continue with Rocephin 1 g IV piggyback daily Tylenol 650 mg p.o. every 4 hours as needed for fevers Blood work showing white count 8.4 hemoglobin 13.8 both unremarkable Macrocytosis MCV of 109 without anemia Check folic acid and B12 levels Alcohol dependence Benzo per CIWA scale Patient counseled to quit alcohol Tachycardia Could be possible side effect of Adderall Rule out underlying thyroid disease check thyroid function Consider echocardiogram if this persists throughout her hospital stay despite hydration and not getting Adderall CT of the abdomen overall was unremarkable Elevated liver enzymes suspected secondary to alcohol abuse Check liver ultrasound rule out gallbladder disease Bilirubin slightly elevated at 1.4 AST slightly elevated at 91 ALT slightly elevated at 57 Renal function overall unremarkable sodium 136 potassium 4.3 BUN 5 creatinine 0.5 Patient advised to follow-up with her primary care for concerns of generalized fatigue Depression screening (patient denies any suicidal ideation) And age-appropriate cancer screening Full code DVT prophylaxis Lovenox 40 mg subcu daily
[2024-02-14] MEDS ORDERED: MAGNESIUM SULFATE-D5W PMX 1 GM in DEXTROSE/WATER 1 100ML.BAG IVPB SCH (08:15)
[2024-02-14] MEDS: ENOXAPARIN 40 MG/0.4 ML SYRINGE SQ SCH (08:41)
--- NOTE | 2024-02-14 09:13 | US ---
EXAMINATION TYPE: US gallbladder DATE OF EXAM: 02/14/2024 COMPARISON: NONE CLINICAL INDICATION: Female, 53 years old with history of pain; elevated liver enzymes. TECHNIQUE: Grayscale and color Doppler imaging of the right upper quadrant was performed. FINDINGS: EXAM MEASUREMENTS: Liver Length: 17.5 cm Gallbladder Wall: .2 cm CBD: .5 cm Right Kidney: 11.4 x 4.9 x 3.1 cm Pancreas: Tail obscured by overlying bowel gas duct measuring 2mm. Liver: Increased attenuation Gallbladder: No stones seen Evidence for sonographic Erid's sign: no CBD: wnl Right Kidney: No hydronephrosis or masses seen IMPRESSION: 1. Mild hepatomegaly with fatty infiltration of the liver. 2. Unremarkable gallbladder. 3. Limited evaluation of pancreas. 4 unremarkable right kidney. [facility], , 02/14/2024 9:11 AM
[2024-02-14] MEDS: MULTIVITAMINS, THERA 1 EACH TAB PO SCH (09:20)
[2024-02-14] MEDS: LORazepam 1 MG TAB PO PRN ×2 (09:20→16:19)
[2024-02-14] MEDS: THIAMINE 100 MG TAB PO SCH (09:20)
[2024-02-14] MEDS: FOLIC ACID 1 MG TAB PO SCH (09:20)
--- NOTE | 2024-02-14 13:27 | P.PN ---
Subjective Progress Note Date: 02/14/24 Hospital course: Patient is a very pleasant 53-year-old female with a past medical history of alcohol abuse. She presented to the emergency department on 02/13/2024 with multiple complaints including palpitations, nausea, and dysuria. Upon arrival to our facility, patient underwent evaluation in the emergency department. Vital signs upon arrival show blood pressure 139/81, heart rate 106, respiratory rate 18, temp 97.8 F, and SpO2 of 98% on room air. EKG was completed showing normal sinus rhythm at 84 bpm with no noted T wave or ST abnormality showing no signs of acute ischemia upon personal review and interpretation. Chest x-ray negative for acute cardiopulmonary process. Labs completed and reviewed. CBC showing macrocytosis with MCV 108.1. BMP showing hyponatremia with sodium 134 and high anion gap metabolic acidosis with chloride of 101, bicarb of 16, and elevated anion gap of 17. Blood glucose was 95. Lactic acid initially 3.0. Liver profile showing elevated total bili of 1.4, AST of 113, and ALT of 64. Ammonia was less than 9. Troponin was less than 0.012. TSH normal findings at 1.200. Lipase normal findings of 43. Urinalysis positive for infection. Serum alcohol level was 17. Patient was admitted under services with consultation to cardiology secondary to her reports of palpitations and tachycardia. CT abdomen and pelvis with IV contrast was completed showing wall thickening of the urinary bladder consistent with UTI and diverticulosis without acute diverticulitis. Gallbladder ultrasound completed showing mild hepatomegaly with fatty infiltration of the liver and unremarkable gallbladder. Physical exam: Patient seen and fully evaluated at bedside this morning. She was sitting up in bed and appears to be slightly fidgety and anxious. Patient reports continued episodes of feeling as though her heart is racing along with nausea. Discussed possible symptoms resulting from alcohol withdraw and patient denies stating she has cut back significantly and only drinks rum now and gave up beer and vodka. Patient informed that drinking rum and coke throughout the day can also result in alcohol withdraw when she is not receiving this. Patient strongly encouraged cessation of any and all alcohol use. Patient states her doctor is monitoring her liver function closely and that she did cut back but does not plan on stopping completely. Will continue further attempts to educate. Vital signs reviewed and stable. General: Nontoxic, no distress and appears stated age. Derm: Skin warm and dry, normal coloration for ethnicity. Head: Atraumatic, normocephalic and symmetric. Eyes: EOM's intact, no lid lag, and anicteric sclera Mouth: no lip lesions, mucus membranes moist Cardiovascular: regular rate and rhythm with normal S1S2, no murmur, positive posterior tibial pulses bilaterally, and cap refill < 2 seconds. Lungs: Respirations even, regular, and unlabored on room air. Lungs CTA bilaterally, no rhonchi, no rales, no wheezing, and no accessory muscle usage. Abdominal: soft, nontender to palpation, no guarding, no appreciable organomegaly Ext: ROM intact. No gross muscle atrophy, no edema, no contractures Neuro: Speech clear, face symmetrical and CN II-XII grossly intact with no noted focal neuro deficits Psych: Alert and oriented to person, place, time, and situation. Appropriate and pleasant affect. Assessment and Plan of Care: Palpitations Sinus tachycardia -Continue telemetry monitoring. -Cardiology consulted, appreciate recommendations. -Continue gentle IV fluid hydration with 0.9% normal saline at 100 cc/h. -TSH normal findings at 1.200. -Troponins were trended and all negative at less than 0.012 x 3 draws. UTI -Continue IV antibiotics with Rocephin 2 g daily. -Follow-up on urine culture. Alcohol abuse Hyperbilirubinemia with transaminitis, believed to be secondary to daily alcohol abuse High anion gap metabolic acidosis, secondary to above and improving with IV fluid hydration Hyponatremia, likely secondary to poor oral intake and alcohol abuse improving with IV fluid hydration. Macrocytosis, secondary to alcohol abuse with suspected vitamin deficiencies -Continue monitoring of CIWA scores and patient to be medicated with Ativan 0.5 mg every 4 hours as needed for CIWA score of 4-5, Ativan 1 mg every 4 hours for CIWA score of 6-7, Ativan 2 mg every 3 hours CIWA score of 8-9, and Ativan 2 mg every 2 hours forr CIWA score of 10 or greater. -Continuous IV hydration. -Thiamine 100 mg daily, and Multivitamin daily, and Folate 1 mg daily -Seizure, fall, aspiration, and elopement precautions in place. -Urine drug screen -Continued close monitoring of electrolytes and replace as needed. -Telemetry monitoring. Lactic acidosis, resolved with IV fluid hydration Data and imaging reviewed: Morning labs reviewed. CBC showing macrocytosis with MCV 109.7. BMP showing improvement of hyponatremia with sodium increasing from 1 34-1 36 this morning and continued but improving metabolic acidosis with chloride of 102, bicarb of 21, and anion gap of 13. Blood glucose 152. Magnesium 1.8. Liver profile showing continued but improving elevation of total bili of 1.4, AST of 91, ALT of 57, and alkaline phosphatase of 99. Troponins trended overnight all negative at less than 0.[address] abdomen and pelvis with IV contrast was completed showing wall thickening of the urinary bladder consistent with UTI and diverticulosis without acute diverticulitis. Gallbladder ultrasound completed showing mild hepatomegaly with fatty infiltration of the liver and unremarkable gallbladder. Vital signs reviewed. Blood pressure 118/73, heart rate 103, respiratory rate 17, temp 98.8 F, and SpO2 of 98% on room air. CODE STATUS: Full code DVT prophylaxis: Eliquis Anticipated discharge date: Likely within the next 24 hours, pending cardiology clearance Anticipated discharge place: Home Patient was seen independently by Nurse Pracitioner. This document was prepared using [employer] dictation software. Please allow for errors in freedom of information officer, while rare they do occur. Morgan Delaney NP rendered care for this patient independently, reviewed the findings and plan as documented in the note above and agree with plan. I did n ot physically speak with or examine the patient on this date. Objective - Vital Signs Vital signs: Vital Signs Temp 98.8 F 02/14/24 08:01 Pulse 103 H 02/14/24 08:01 Resp 17 02/14/24 08:01 BP 118/73 02/14/24 08:01 Pulse Ox 98 02/14/24 08:01 FiO2 Intake & Output 02/13/24 02/14/24 02/14/24 18:59 06:59 18:59 Weight 63.503 kg 63.503 kg - Labs CBC & Chem 7: 02/14/24 05:01 02/14/24 05:01 Labs: Abnormal Lab Results - Last 24 Hours (Table) 02/13/24 02/13/24 02/13/24 Range/Units 21:56 21:56 21:56 RBC (3.80-5.40) m/uL MCV 108.1 H (80.0-100.0) fL MCH 37.0 H (25.0-35.0) pg Neutrophils # (1.3-7.7) k/uL Lymphocytes # 0.7 L (1.0-4.8) k/uL Sodium 134 L (137-145) mmol/L Carbon Dioxide 16 L (22-30) mmol/L BUN 5 L (7-17) mg/dL Creatinine (0.52-1.04) mg/dL Glucose (74-99) mg/dL Plasma Lactic Acid Celestino 3.0 H* (0.7-2.0) mmol/L Total Bilirubin 1.4 H (0.2-1.3) mg/dL AST 113 H (14-36) U/L ALT 64 H (4-34) U/L Total Protein 8.4 H (6.3-8.2) g/dL Albumin 5.4 H (3.5-5.0) g/dL Urine Appearance (Clear) Urine WBC (0-5) /hpf Urine WBC Clumps (None) /hpf Urine Bacteria (None) /hpf Hyaline Casts (0-2) /lpf Urine Mucus (None) /hpf 02/13/24 02/14/24 02/14/24 Range/Units 22:45 05:01 05:01 RBC 3.61 L (3.80-5.40) m/uL MCV 109.7 H (80.0-100.0) fL MCH 38.2 H (25.0-35.0) pg Neutrophils # 8.0 H (1.3-7.7) k/uL Lymphocytes # 0.3 L (1.0-4.8) k/uL Sodium 136 L (137-145) mmol/L Carbon Dioxide 21 L (22-30) mmol/L BUN 5 L (7-17) mg/dL Creatinine 0.51 L (0.52-1.04) mg/dL Glucose 152 H (74-99) mg/dL Plasma Lactic Acid Celestino (0.7-2.0) mmol/L Total Bilirubin 1.4 H (0.2-1.3) mg/dL AST 91 H (14-36) U/L ALT 57 H (4-34) U/L Total Protein (6.3-8.2) g/dL Albumin 5.2 H (3.5-5.0) g/dL Urine Appearance Slightly Cloudy H (Clear) Urine WBC 171 H (0-5) /hpf Urine WBC Clumps Moderate H (None) /hpf Urine Bacteria Many H (None) /hpf Hyaline Casts 3 H (0-2) /lpf Urine Mucus Few H (None) /hpf
[2024-02-14] MEDS: LORazepam 0.5 MG TAB PO PRN (20:57)
[2024-02-14] MEDS: ONDANSETRON 4 MG/2 ML VIAL IVP PRN (21:57)
--- NOTE | 2024-02-14 22:58 | P.CRDCN ---
History of Present Illness Consult date: 02/14/24 History of present illness: HISTORY OF PRESENTING ILLNESS 53-year-old female with past medical history of alcohol abuse, currently only drinking 1-2 drinks per day. She presented to the hospital because of concerns of palpitations, feeling nauseous, with poor oral intake and appetite. Cardiology was consulted for palpitation evaluation EKG shows sinus rhythm with a heart rate 84 bpm with no significant ST-T wave changes that are concerning for acute ischemia. Telemetry monitoring shows intermittent sinus tachycardia along with sinus rhythm. There were no sustained arrhythmias noticed. Labs showed hemoglobin 14.5, macrocytosis, MCV 108, BUN 5 creatinine 0.5, NT- proBNP 22, TSH 1.2, HbA1c 4.8, REVIEW OF SYSTEMS 14 point review of system is negative except what is mentioned above in HPI. PHYSICAL EXAMINATION Vital signs reviewed. Head: Normocephalic. Eyes: Sclerae nonicteric. Neck: Brisk carotid upstroke, no jugular venous distention. Lungs: Clear to auscultation. Heart: Regular rate and rhythm, S1-S2, no S3, no murmur or rub. Abdomen: Soft nontender, positive bowel sounds. Extremities: No edema, intact distal pulses. Neuro: Alert, oritented, no focal deficits. Detailed neuro exam was not performed. ASSESSMENT Palpitations Sinus tachycardia, likely physiological UTI Macrocytosis Alcohol dependence, previously problematic alcohol drinker, currently 1-2 drinks Mild transaminitis hyperbilirubinemia Tobacco use Marijuana use PLAN Continue telemetry monitoring Look for reversible causes for sinus tachycardia Supportive care for alcohol withdrawal B12 folate thiamine replacement. Obtain echocardiogram If echocardiogram is within normal limits tomorrow, patient would be okay to be discharged from cardiac standpoint. I would recommend a 7-day extended Holter monitor to be picked up from cardiology office at the time of discharge to evaluate if patient has concerns of inappropriate sinus tachycardia and if patient would benefit from a beta- jd. Consider outpatient evaluation for alcoholic liver disease She would benefit from an outpatient ischemic evaluation with a stress test Mikael Lewis MD, FACC, RPVI Thank you for allowing [facility] to participate in this patient's care. Feel free to reach out in case of any followup questions. Past Medical History Past Medical History: Asthma, Pneumonia History of Any Multi-Drug Resistant Organisms: None Reported Past Surgical History: Tubal Ligation Past Anesthesia/Blood Transfusion Reactions: No Reported Reaction Past Psychological History: ADD/ADHD, Anxiety, Depression, PTSD Smoking Status: Current every day smoker, Vaper Past Alcohol Use History: Daily, Heavy Additional Past Alcohol Use History / Comment(s): Pint of Vodka per day Past Drug Use History: Marijuana - Past Family History Mother Family Medical History: Cancer, Coronary Artery Disease (CAD) Additional Family Medical History / Comment(s): Ovarian CA Father Family Medical History: Hyperlipidemia, Hypertension Medications and Allergies Home Medications Medication Instructions Recorded Confirmed Type Dextroamphetamine/Amphetamine 20 mg PO BID PRN 12/22/20 02/14/24 History [Adderall] Fluticasone Propionate 2 spray EA NOSTRIL DAILY PRN 12/19/21 02/14/24 History [Fluticasone Propionate Nasal [place]] Albuterol Inhaler [Ventolin Hfa 2 puff INHALATION RT-QID PRN 02/14/24 02/14/24 History Inhaler] FLUoxetine HCL [PROzac] 10 mg PO DAILY 02/14/24 02/14/24 History Nitrofurantoin Monohyd/M-Cryst 100 mg PO DIRECTED 02/14/24 02/14/24 History [Macrobid] Allergies Allergy/AdvReac Type Severity Reaction Status Date / Time Penicillins Allergy Unknown Verified 12/19/21 07:14 Childhood Physical Exam Vitals: Vital Signs Temp Pulse Pulse Resp BP BP Pulse Ox 02/14/24 19:57 98 F 92 16 106/99 99 02/14/24 13:35 98.0 F 109 H 17 132/83 94 L 02/14/24 08:01 98.8 F 103 H 17 118/73 98 02/14/24 06:15 98.0 F 100 16 130/98 97 02/14/24 03:38 97.6 F 98 17 132/86 97 02/14/24 00:06 88 16 115/69 97 Intake and Output 02/14/24 02/14/24 02/14/24 06:59 14:59 22:59 Other: # Voids 3 # Bowel Movements 0 Weight 63.503 kg Results 02/14/24 05:01 02/14/24 05:01 Cardiac Enzymes 02/13/24 02/14/24 02/14/24 Range/Units 23:53 05:01 05:01 AST 91 H (14-36) U/L Troponin I <0.012 <0.012 (0.000-0.034) ng/mL Coagulation 02/13/24 Range/Units 21:56 PT 10.4 (10.0-12.5) sec APTT 24.4 (22.0-30.0) sec CBC 02/14/24 Range/Units 05:01 WBC 8.4 (3.8-10.6) k/uL RBC 3.61 L (3.80-5.40) m/uL Hgb 13.8 (11.4-16.0) gm/dL Hct 39.6 (34.0-46.0) % Plt Count 218 (150-450) k/uL Comprehensive Metabolic Panel 02/14/24 Range/Units 05:01 Sodium 136 L (137-145) mmol/L Potassium 4.3 (3.5-5.1) mmol/L Chloride 102 (98-107) mmol/L Carbon Dioxide 21 L (22-30) mmol/L BUN 5 L (7-17) mg/dL Creatinine 0.51 L (0.52-1.04) mg/dL Glucose 152 H (74-99) mg/dL Calcium 9.3 (8.4-10.2) mg/dL AST 91 H (14-36) U/L ALT 57 H (4-34) U/L Alkaline Phosphatase 99 (38-126) U/L Total Protein 8.1 (6.3-8.2) g/dL Albumin 5.2 H (3.5-5.0) g/dL Current Medications Generic Name Dose Route Start Last Admin Trade Name Emersonq PRN Reason Stop Dose Admin Enoxaparin Sodium 40 mg 02/14/24 09:00 02/14/24 08:41 Enoxaparin 40 Mg/0.4 Ml Syringe SQ Not Given DAILY MARI Folic Acid 1 mg 02/14/24 09:00 02/14/24 09:20 Folic Acid 1 Mg Tab PO 1 mg DAILY MARI Administration Sodium Chloride 1,000 mls @ 100 mls/hr 02/13/24 23:30 02/14/24 16:15 Saline 0.9% IV 100 mls/hr .Q10H MARI Administration Ceftriaxone Sodium 2 gm/ 50 mls @ 100 mls/hr 02/14/24 21:00 02/14/24 20:45 Sodium Chloride IVPB 100 mls/hr Q24H MARI Administration Protocol Lorazepam 2 mg 02/13/24 21:29 Lorazepam 1 Mg Tab PO Q3HR PRN Ciwa 8 To 9 Lorazepam 2 mg 02/13/24 21:29 Lorazepam 1 Mg Tab PO Q2HR PRN Ciwa 10 or greater Lorazepam 1 mg 02/13/24 21:29 02/14/24 09:20 Lorazepam 1 Mg Tab PO 1 mg Q4HR PRN Administration Ciwa 6 To 7 Lorazepam 0.5 mg 02/13/24 21:29 02/14/24 20:57 Lorazepam 0.5 Mg Tab PO 0.5 mg Q4HR PRN Administration Ciwa 4 To 5 Lorazepam 2 mg 02/13/24 21:29 Lorazepam 2 Mg/Ml Inj IV 02/15/24 21:30 Q10M PRN CIWA 16 or higher Lorazepam 1 mg 02/13/24 21:29 02/14/24 03:43 Lorazepam 2 Mg/Ml Inj IV 1 mg Q2HR PRN Administration CIWA 8 or 9 Lorazepam 1 mg 02/13/24 21:29 02/14/24 13:36 Lorazepam 2 Mg/Ml Inj IV 1 mg Q1HR PRN Administration CIWA 10 to 15 Lorazepam 1 mg 02/13/24 21:29 02/14/24 16:19 Lorazepam 1 Mg Tab PO 1 mg Q1HR PRN Administration Alcohol Withdrawal Morphine Sulfate 4 mg 02/13/24 23:16 02/14/24 03:44 Morphine Sulfate 4 Mg/Ml Syringe IV 4 mg Q4HR PRN Administration Severe Pain (Scale 7 to 10) Multivitamins 1 each 02/14/24 09:00 02/14/24 09:20 Multivitamins, Thera 1 Each Tab PO 1 each DAILY MARI Administration Naloxone HCl 0.2 mg 02/13/24 23:16 Naloxone 0.4 Mg/Ml 1 Ml Vial IV Q2M PRN Opioid Reversal Ondansetron HCl 4 mg 02/13/24 23:16 02/14/24 21:57 Ondansetron 4 Mg/2 Ml Vial IVP 4 mg Q8HR PRN Administration Nausea And Vomiting Pantoprazole Sodium 40 mg 02/13/24 23:30 02/14/24 09:20 Pantoprazole 40 Mg/10 Ml Vial IV 40 mg DAILY MARI Administration Thiamine HCl 100 mg 02/14/24 09:00 02/14/24 09:20 Thiamine 100 Mg Tab PO 100 mg DAILY MARI Administration Intake and Output 02/14/24 02/14/24 02/14/24 06:59 14:59 22:59 Other: # Voids 3 # Bowel Movements 0 Weight 63.503 kg Patient Weight 02/15/24 06:59 Weight 63.503 kg 02/14/24 05:01 02/14/24 05:01
[2024-02-15 09:10] LABS: ALT 36 U/L (8-44); AST 68 U/L (13-35); Albumin 3.8 g/dL (3.8-4.9); Albumin/Globulin Ratio 2.11 Ratio (1.60-3.17); Alkaline Phosphatase 83 U/L (41-126); BUN/Creat Ratio 8.17 Ratio (12.00-20.00); Blood Urea Nitrogen 4.9 mg/dL (9.0-27.0); Calcium 8.4 mg/dL (8.7-10.3); Carbon Dioxide 21.6 mmol/L (21.6-31.8); Chloride 106 mmol/L (96-109); Globulin 1.8 g/dL (1.6-3.3); Glucose 141 mg/dL (70-110); Magnesium 1.6 mg/dL (1.5-2.4); Sodium 141 mmol/L (135-145); Total Bilirubin 0.4 mg/dL (0.3-1.2); Total Protein 5.6 g/dL (6.2-8.2)
[2024-02-15 09:11] LABS: HCT 33.1 % (37.2-46.3); HGB 11.4 g/dL (12.0-15.0); MCHC 34.4 g/dL (32.0-37.0); MCV 110.3 FL (80.0-97.0); Mean Platelet Volume 10.9 FL (9.5-12.2); NRBC Per 100 WBC 0 X 10*3/uL (0.00-0.01); Platelet Count 167 X 10*3/uL (140-440); RDW 12.5 % (11.5-14.5); WBC 5.62 X 10*3/uL (4.50-10.00)
[2024-02-15] MEDS: LORazepam 1 MG TAB PO PRN (10:29)
[2024-02-15] MEDS: MAGNESIUM SULFATE-D5W PMX 1 GM in DEXTROSE/WATER 1 100ML.BAG IVPB SCH (10:29)
[2024-02-15] MEDS: POTASSIUM BICARBONATE/CIT AC 20 MEQ TABLET.EFF PO ONE (10:47)
[2024-02-15 10:51] LABS: Chol/HDL Ratio 1.82 Ratio; LDL Cholesterol,Calculated 108.2 mg/dL (0.0-131.0)
--- NOTE | 2024-02-15 14:26 | P.PN ---
Subjective Progress Note Date: 02/15/24 Hospital course: Patient is a very pleasant 53-year-old female with a past medical history of alcohol abuse. She presented to the emergency department on 02/13/2024 with multiple complaints including palpitations, nausea, and dysuria. Upon arrival to our facility, patient underwent evaluation in the emergency department. Vital signs upon arrival show blood pressure 139/81, heart rate 106, respiratory rate 18, temp 97.8 F, and SpO2 of 98% on room air. EKG was completed showing normal sinus rhythm at 84 bpm with no noted T wave or ST abnormality showing no signs of acute ischemia upon personal review and interpretation. Chest x-ray negative for acute cardiopulmonary process. Labs completed and reviewed. CBC showing macrocytosis with MCV 108.1. BMP showing hyponatremia with sodium 134 and high anion gap metabolic acidosis with chloride of 101, bicarb of 16, and elevated anion gap of 17. Blood glucose was 95. Lactic acid initially 3.0. Liver profile showing elevated total bili of 1.4, AST of 113, and ALT of 64. Ammonia was less than 9. Troponin was less than 0.012. TSH normal findings at 1.200. Lipase normal findings of 43. Urinalysis positive for infection. Serum alcohol level was 17. Patient was admitted under services with consultation to cardiology secondary to her reports of palpitations and tachycardia. CT abdomen and pelvis with IV contrast was completed showing wall thickening of the urinary bladder consistent with UTI and diverticulosis without acute diverticulitis. Gallbladder ultrasound completed showing mild hepatomegaly with fatty infiltration of the liver and unremarkable gallbladder. Physical exam: Patient seen and fully evaluated at bedside this morning. She was sitting up in bed and visiting with family/friend at bedside. Patient currently denies any further episodes of palpitations and denies any other complaints at this time. States she is looking forward to discharge today. Instructed patient and awaiting echocardiogram completion and clearance from cardiology with plans for likely discharge later today. Vital signs reviewed and stable. General: Nontoxic, no distress and appears stated age. Derm: Skin warm and dry, normal coloration for ethnicity. Head: Atraumatic, normocephalic and symmetric. Eyes: EOM's intact, no lid lag, and anicteric sclera Mouth: no lip lesions, mucus membranes moist Cardiovascular: regular rate and rhythm with normal S1S2, no murmur, positive posterior tibial pulses bilaterally, and cap refill < 2 seconds. Lungs: Respirations even, regular, and unlabored on room air. Lungs CTA bilaterally, no rhonchi, no rales, no wheezing, and no accessory muscle usage. Abdominal: soft, nontender to palpation, no guarding, no appreciable organomegaly Ext: ROM intact. No gross muscle atrophy, no edema, no contractures Neuro: Speech clear, face symmetrical and CN II-XII grossly intact with no noted focal neuro deficits Psych: Alert and oriented to person, place, time, and situation. Appropriate and pleasant affect. Assessment and Plan of Care: Palpitations Sinus tachycardia -Continue telemetry monitoring. -Cardiology consulted, appreciate recommendations. -Continue gentle IV fluid hydration with 0.9% normal saline at 100 cc/h. -TSH normal findings at 1.200. -Troponins were trended and all negative at less than 0.012 x 3 draws. UTI -Continue IV antibiotics with Rocephin 2 g daily. -Follow-up on urine culture. Alcohol abuse Hyperbilirubinemia with transaminitis, believed to be secondary to daily alcohol abuse High anion gap metabolic acidosis, secondary to above and improving with IV fluid hydration Hypomagnesemia and hypokalemia Hyponatremia, likely secondary to poor oral intake and alcohol abuse improving with IV fluid hydration. Macrocytosis, secondary to alcohol abuse with suspected vitamin deficiencies -Continue monitoring of CIWA scores and patient to be medicated with Ativan 0.5 mg every 4 hours as needed for CIWA score of 4-5, Ativan 1 mg every 4 hours for CIWA score of 6-7, Ativan 2 mg every 3 hours CIWA score of 8-9, and Ativan 2 mg every 2 hours forr CIWA score of 10 or greater. -Continuous IV hydration. -Thiamine 100 mg daily, and Multivitamin daily, and Folate 1 mg daily -Seizure, fall, aspiration, and elopement precautions in place. -Urine drug screen -Continued close monitoring of electrolytes and replace as needed. -Telemetry monitoring. Magnesium low at 1.6 orders placed for mag sulfate 2 g IVPB x 1 dose and potassium low at 3.0. Order placed for K-Dur 40 mEq p.o. x 1 dose. Lactic acidosis, resolved with IV fluid hydration Data and imaging reviewed: Morning labs reviewed. CBC showing macrocytic anemia with hemoglobin of 11.4 and MCV of 110.3. BMP showing hypokalemia with potassium of 3.0, elevated anion gap of 13.40, and blood glucose of 141. Magnesium also low at 1.6. Vital signs reviewed. Blood pressure 112/68, heart rate 89, respiratory rate 15, temp 98.3 F, and SpO2 of 100% on room air. CODE STATUS: Full code DVT prophylaxis: Eliquis Anticipated discharge date: Likely later today, awaiting echocardiogram results then plan for discharge if normal. Anticipated discharge place: Home Patient was seen independently by Nurse Pracitioner. This document was prepared using [employer] dictation software. 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 Morgan Delaney NP rendered care for this patient independently, reviewed the findings and plan as documented in the note above and agree with plan. I did not physically speak with or examine the patient on this date. Objective - Vital Signs Vital signs: Vital Signs Temp 98.3 F 02/15/24 06:55 Pulse 89 02/15/24 06:55 Resp 15 02/15/24 06:55 BP 112/68 02/15/24 06:55 Pulse Ox 100 02/15/24 06:55 FiO2 Intake & Output 02/14/24 02/15/24 02/15/24 18:59 06:59 18:59 Weight 63.503 kg Other: # Voids 3 1 # Bowel Movements 0 - Labs CBC & Chem 7: 02/15/24 03:43 02/15/24 03:43
--- NOTE | 2024-02-15 18:11 | CA ---
Transthoracic Echo Report Name: Paz Blanco Age: 53 Gender: F : 1970 Exam Date: 02/15/2024 09:06 Exam Location: [facility] Echo Ht (in): 66 Wt (lb): 140 Ordering Physician: Mikael Lewis MD ([id number]) Attending/Referring Phys: Ecology Teacher Herminia Sanches RDCS Procedure CPT: Indications: chf, cardiomyopathy Cardiac Hx: Breast Implants Technical Quality: Fair Contrast 1: Total Dose (mL): Contrast 2: Total Dose (mL): MEASUREMENTS (Male / Female) Normal Values 2D ECHO LV Diastolic Diameter PLAX 4.2 cm 4.2 - 5.9 / 3.9 - 5.3 cm LV Systolic Diameter PLAX 2.7 cm IVS Diastolic Thickness 1.1 cm 0.6 - 1.0 / 0.6 - 0.9 cm LVPW Diastolic Thickness 1.0 cm 0.6 - 1.0 / 0.6 - 0.9 cm LV Relative Wall Thickness 0.5 RV Internal Dim ED PLAX 2.6 cm LA Systolic Diameter LX 4.1 cm 3.0 - 4.0 / 2.7 - 3.8 cm LV Diastolic Volume MOD BP 52.5 cm??? 67 - 155 / 56 - 104 cm??? LV Systolic Volume MOD BP 19.5 cm??? 22 - 58 / 19 - 49 cm??? LV Ejection Fraction MOD BP 62.8 % >= 55 % LV Cardiac Index MOD BP 1799.5 cm???/min???m??? LV Diastolic Volume MOD 4C 48.1 cm??? LV Systolic Volume MOD 4C 21.8 cm??? LV Ejection Fraction MOD 4C 54.8 % LV Cardiac Index MOD 4C 1438.3 cm???/min???m??? LV Diastolic Length 4C 7.1 cm LV Systolic Length 4C 5.7 cm LV Diastolic Volume MOD 2C 57.3 cm??? LV Systolic Volume MOD 2C 17.8 cm??? LV Ejection Fraction MOD 2C 68.9 % LV Cardiac Index MOD 2C 2155.6 cm???/min???m??? LV Diastolic Length 2C 7.1 cm LV Systolic Length 2C 5.7 cm LA Volume 40.6 cm??? 18 - 58 / 22 - 52 cm??? LA Volume Index 23.6 cm???/m??? 16 - 28 cm???/m??? M-MODE Aortic Root Diameter MM 3.3 cm LA Systolic Diameter MM 3.3 cm LA Ao Ratio MM 1.0 AV Cusp Separation MM 1.7 cm DOPPLER AI Peak Velocity 282.6 cm/s AI Peak Gradient 31.9 mmHg AI Pressure Half Time 694.3 ms MV Area PHT 3.8 cm??? Mitral E Point Velocity 92.8 cm/s Mitral A Point Velocity 83.7 cm/s Mitral E to A Ratio 1.1 MV Deceleration Time 198.6 ms FINDINGS Left Ventricle Left ventricular ejection fraction is estimated at 55-60 %. Mildly increased septal wall thickness. Mildly increased posterior wall thickness. Normal left ventricular systolic function with no obvious regional wall motion abnormalities. Left ventricular cavity size normal. Right Ventricle Normal right ventricular size and function. Right ventricular systolic pressure within normal limits. Right Atrium Normal right atrial size. Left Atrium Mildly increased left atrial diameter. Mitral Valve Structurally normal mitral valve. No mitral stenosis. Mild mitral regurgitation. Aortic Valve Trileaflet aortic valve. Trace to mild aortic regurgitation. No aortic stenosis. Tricuspid Valve Structurally normal tricuspid valve. Trace to mild tricuspid regurgitation. No tricuspid stenosis. Pulmonic Valve Structurally normal pulmonic valve. Trace pulmonic regurgitation. No pulmonic regurgitation. Pericardium No pericardial or pleural effusion. Aorta Normal size aortic root and proximal ascending aorta. CONCLUSIONS Diagnosis: Congestive heart failure and palpitations LVH with preserved systolic function No valvular abnormalities of any significance Previewed by: Dr. Wilber Manning MD (Electronically Signed) Final Date: 15 February 2024 18:10
[2024-02-16 07:20] VITALS: BP 106/66; PULSE 74; RESP 17; TEMP 98.7
--- NOTE | 2024-02-16 09:52 | P.DS ---
Providers Date of admission: 02/16/24 07:39 Expected date of discharge: 02/16/24 Attending physician: Ludmila Gupta MD Consults: 02/13/24 23:16 Consult Physician Routine Consulting Provider: Zak Nava Consult Reason/Comments: tachycardia Do you want consulting provider notified?: Yes Primary care physician: Tahir Thomas [facility] Hospital Course: Discharge Diagnosis: Sinus tachycardia with palpitations. Likely multifactorial secondary to alcohol withdraw and daily Adderall use. Adderall discontinued. Patient was evaluated by oil expeller. Echocardiogram was completed showing a preserved EF of 55 to 60% and mild left ventricular hypertrophy, no further valvular or structural abnormalities reported. Patient cleared from cardiology perspective recommending Holter/event monitor placement. Patient scheduled to have event monitor placed on 02/18/2024 at cardiology office. UTI. Urine culture was not obtained on this admission. Patient completed 3-day course of IV antibiotics with Rocephin and was previously on 2 day course of nitrofurantoin prior to arrival. Patient was educated on ways to prevent future UTIs. Alcohol abuse. Patient strongly encouraged to avoid any and all alcohol use. Patient provided with outpatient resources available to her including outpatient counseling, and patient drug and alcohol rehab facilities, and AA meetings. Hyperbilirubinemia with transaminitis, believed to be secondary to daily alcohol abuse High anion gap metabolic acidosis, secondary to above and improving with IV fluid hydration. Hypomagnesemia and hypokalemia.. Replaced. Hyponatremia, likely secondary to poor oral intake and alcohol abuse resolved with IV fluid hydration. Macrocytosis, secondary to alcohol abuse with suspected vitamin deficiencies. Patient discharged home on thiamine 100 mg daily, multivitamin 1 tablet daily, and folate 1 mg daily. Lactic acidosis, resolved with IV fluid hydration. Hospital Course: Patient is a very pleasant 53-year-old female with a past medical history of alcohol abuse. She presented to the emergency department on 02/13/2024 with multiple complaints including palpitations, nausea, and dysuria. Upon arrival to our facility, patient underwent evaluation in the emergency department. Vital signs upon arrival show blood pressure 139/81, heart rate 106, respiratory rate 18, temp 97.8 F, and SpO2 of 98% on room air. EKG was completed showing normal sinus rhythm at 84 bpm with no noted T wave or ST abnormality showing no signs of acute ischemia upon personal review and interpretation. Chest x-ray negative for acute cardiopulmonary process. Labs completed and reviewed. CBC showing macrocytosis with MCV 108.1. BMP showing hyponatremia with sodium 134 and high anion gap metabolic acidosis with chloride of 101, bicarb of 16, and elevated anion gap of 17. Blood glucose was 95. Lactic acid initially 3.0. Liver profile showing elevated total bili of 1.4, AST of 113, and ALT of 64. Ammonia was less than 9. Troponin was less than 0.012. TSH normal findings at 1.200. Lipase normal findings of 43. Urinalysis positive for infection. Serum alcohol level was 17. Patient was admitted under services with consultation to cardiology secondary to her reports of palpitations and tachycardia. CT abdomen and pelvis with IV contrast was completed showing wall thickening of the urinary bladder consistent with UTI and diverticulosis without acute diverticulitis. Gallbladder ultrasound completed showing mild hepatomegaly with fatty infiltration of the liver and unremarkable gallbladder. Physical exam: Vital signs reviewed and stable. General: Nontoxic, no distress and appears stated age. Derm: Skin warm and dry, normal coloration for ethnicity. Head: Atraumatic, normocephalic and symmetric. Eyes: EOM's intact, no lid lag, and anicteric sclera Mouth: no lip lesions, mucus membranes moist Cardiovascular: regular rate and rhythm with normal S1S2, no murmur, positive posterior tibial pulses bilaterally, and cap refill < 2 seconds. Lungs: Respirations even, regular, and unlabored on room air. Lungs CTA bilaterally, no rhonchi, no rales, no wheezing, and no accessory muscle usage. Abdominal: soft, nontender to palpation, no guarding, no appreciable organomegaly Ext: ROM intact. No gross muscle atrophy, no edema, no contractures Neuro: Speech clear, face symmetrical and CN II-XII grossly intact with no noted focal neuro deficits Psych: Alert and oriented to person, place, time, and situation. Appropriate and pleasant affect. A total of 35 minutes of time were spent preparing this complex discharge summary. Pt was discharged on 02/16/2024 at 9:06 AM. Patient was seen independently by Nurse Practitioner. This document was prepared using Transcriptic dictation software. Please allow for errors in home improvement advisor while rare they do occur. Morgan Delaney NP rendered care for this patient independently, reviewed the findings and plan as documented in the note above. I did not physically speak with or examine the patient on this date.. Patient Condition at Discharge: Stable Plan - Discharge Summary New Discharge Prescriptions: New Multivitamins, Thera [Multivitamin (formulary)] 1 each PO DAILY 30 Days #30 tab Folic Acid 1 mg PO DAILY 30 Days #30 tab Thiamine [Vitamin B-1] 100 mg PO DAILY 30 Days #30 tab Continue Fluticasone Propionate [Fluticasone Propionate Nasal [place]] 2 spray EA NOSTRIL DAILY PRN PRN Reason: Allergy Symptoms FLUoxetine HCL [PROzac] 10 mg PO DAILY Albuterol Inhaler [Ventolin Hfa Inhaler] 2 puff INHALATION RT-QID PRN PRN Reason: Shortness Of Breath Discontinued Dextroamphetamine/Amphetamine [Adderall] 20 mg PO BID PRN PRN Reason: ADHD Nitrofurantoin Monohyd/M-Cryst [Macrobid] 100 mg PO DIRECTED Discharge Medication List Fluticasone Propionate [Fluticasone Propionate Nasal [place]] 2 spray EA NOSTRIL DAILY PRN 12/19/21 [History] Albuterol Inhaler [Ventolin Hfa Inhaler] 2 puff INHALATION RT-QID PRN 02/14/24 [History] FLUoxetine HCL [PROzac] 10 mg PO DAILY 02/14/24 [History] Folic Acid 1 mg PO DAILY 30 Days #30 tab 02/16/24 [Rx] Multivitamins, Thera [Multivitamin (formulary)] 1 each PO DAILY 30 Days #30 tab 02/16/24 [Rx] Thiamine [Vitamin B-1] 100 mg PO DAILY 30 Days #30 tab 02/16/24 [Rx] Follow up Appointment(s)/Referral(s): Tahir Shepard MD [Primary Care Provider] - 1-2 days (office closed at time of discharge. Please call to schedule appointment ) Mikael Lewis MD [Medical Doctor] - 1 Week (office will call with appointment time) Patient Instructions/Handouts: Heart Palpitations (DC), Abuse of Alcohol (DC) Activity/Diet/Wound Care/Special Instructions: Upon discharge, you will need to go to cardiology office on 02/18/24 to cotton picking machine operator your event monitor at [address] [facility]. Activity: As tolerated. Diet: Heart healthy and carb consistent diet. Special Instructions: Take all of your medications as directed and remember to keep all of your docto r's appointments and follow-up as needed. Strongly recommend avoidance of any and all alcohol use. Strongly recommend discontinuing Adderall as this can be the cause of your palpitations. A common reaction of Adderall is agitation, dizziness, nervousness, tachycardia, and palpitations. Wishing you and your family a very blessed and wonderful holiday season and a happy healthy new year. Thank you for allowing us to participate in your care, it was truly a pleasure having you for our patient!!! . Discharge/Stand Alone Forms: AA Meetings [facility], Outpatient Counseling, In Substance Abuse Facilities Discharge Disposition: HOME SELF-CARE
== END 2024-02-16 09:56 | disposition home or self-care (01) | DRG 897 ==
LOC: EC 21:18 → 5NMEDONC 23:16 → 4SSUR 02-14 03:41 → OBSVTOIN 02-16 07:39
PROVIDERS: ADMIT Internal Medicine; ATTEND Internal Medicine
DX: F10.239 Alcohol dependence with withdrawal, unspecified (principal); N39.0 Urinary tract infection, site not specified; E87.29 Other acidosis; E87.1 Hypo-osmolality and hyponatremia; R17 Unspecified jaundice; E86.0 Dehydration; E87.6 Hypokalemia; E83.42 Hypomagnesemia; F17.290 Nicotine dependence, other tobacco product, uncomplicated; K57.30 Diverticulosis of large intestine without perforation or abscess without bleeding; F10.20 Alcohol dependence, uncomplicated; Y90.0 Blood alcohol level of less than 20 mg/100 ml; Z79.899 Other long term (current) drug therapy
CPT/HCPCS: 36415; 71046; 74177; 76705; 80053; 80061; 80320; 81001; 82140; 82607; 82747; 83036; 83605; 83690; 83735; 83880; 84100; 84443; 84484; 85025; 85027; 85610; 85730; 93005; 93306; 96361; 96365; 96366; 96375; 96376; 99285

== ENCOUNTER 2024-08-11 02:15 | Emergency (ER) | payer BC ==
[2024-08-11 02:19] VITALS: TEMP 98.1
[2024-08-11] MEDS: ONDANSETRON 4 MG/2 ML VIAL IVP STA ×2 (02:43→04:07)
[2024-08-11] MEDS: SODIUM CHLORIDE 0.9% 1,000 ML IV STA (02:44)
[2024-08-11] MEDS: KETOROLAC 15 MG/ML 1 ML VIAL IVP STA (02:49)
[2024-08-11 02:50] LABS: Basophils # (A) 0.04 10*3/uL (0.00-0.10); Basophils % (A) 0.6 %; Eosinophils # (A) 0.09 10*3/uL (0.04-0.35); Eosinophils % (A) 1.5 %; HCT 36.3 % (37.2-46.3); HGB 13.1 g/dL (12.0-15.0); Lymphocytes # (A) 0.97 10*3/uL (0.90-5.00); Lymphocytes % (A) 15.7 %; MCH 36.7 pg (27.0-32.0); MCHC 36.1 g/dL (32.0-37.0); MCV 101.7 fL (80.0-97.0); Mean Platelet Volume 9.9 fL (9.5-12.2); Monocytes # (A) 0.46 10*3/uL (0.20-1.00); Monocytes % (A) 7.5 %; Neutrophils # (A) 4.58 10*3/uL (1.80-7.70); Neutrophils % (A) 74.4 %; Platelet Count 205 10*3/uL (140-440); RBC 3.57 10*6/uL (4.10-5.20); RDW 12.4 % (11.5-14.5); WBC 6.16 10*3/uL (4.50-10.00)
--- NOTE | 2024-08-11 02:51 | ED ---
General Adult HPI - General Chief complaint: Nausea/Vomiting/Diarrhea Stated complaint: Nausea/Vomiting Time Seen by Provider: 08/11/24 02:19 Source: patient, family Limitations: no limitations - History of Present Illness Initial comments: Patient is a 54-year-old female with past medical history of alcoholism presenting today for nausea and vomiting. Patient states she drinks approximately a pint of rum daily. Last drink was at 10 PM last night. Yesterday at noon she began having nausea and multiple episodes of nonbloody nonbilious emesis. Did note few tiny streaks of blood in her vomit but believe this is from her throat, no large-volume hematemesis or coffee-ground emesis. Denies melena or hematochezia. Denies abdominal pain. Patient states that she is afraid she is" acidosis" as she has required hospitalization for that before. Patient has no history of diabetes, think she may have been an alcoholic ketoacidosis. Denies fevers or chills, endorses shakiness. Endorses anxiety. Denies chest pain or shortness of breath. Denies abdominal pain, melena, h ematochezia or diarrhea. Denies dysuria or urinary frequency. Endorses headache, denies changes in vision, focal numbness, weakness, slurred speech or strokelike symptoms, denies auditory or visual hallucinations. - Related Data Home Medications Medication Instructions Recorded Confirmed Fluticasone Propionate 2 spray EA NOSTRIL DAILY PRN 12/19/21 02/14/24 [Fluticasone Propionate Nasal [place]] Albuterol Inhaler [Ventolin Hfa 2 puff INHALATION RT-QID PRN 02/14/24 02/14/24 Inhaler] FLUoxetine HCL [PROzac] 10 mg PO DAILY 02/14/24 02/14/24 Previous Rx's Medication Instructions Recorded Folic Acid 1 mg PO DAILY 30 Days #30 tab 02/16/24 Multivitamins, Thera [Multivitamin 1 each PO DAILY 30 Days #30 tab 02/16/24 (formulary)] Thiamine [Vitamin B-1] 100 mg PO DAILY 30 Days #30 tab 02/16/24 chlordiazePOXIDE HCl [Librium] See Taper PO QID 4 Days #15 capsule 08/11/24 Allergies Allergy/AdvReac Type Severity Reaction Status Date / Time Penicillins Allergy Unknown Verified 08/11/24 02:19 Childhood Review of Systems ROS Statement: Those systems with pertinent positive or pertinent negative responses have been documented in the HPI. ROS Other: All systems not noted in ROS Statement are negative. Past Medical History Past Medical History: Asthma, Pneumonia History of Any Multi-Drug Resistant Organisms: None Reported Past Surgical History: Tubal Ligation Past Anesthesia/Blood Transfusion Reactions: No Reported Reaction Past Psychological History: ADD/ADHD, Anxiety, Depression, PTSD Smoking Status: Current every day smoker, Vaper Past Alcohol Use History: Daily, Heavy Past Drug Use History: Marijuana - Past Family History Mother Family Medical History: Cancer, Coronary Artery Disease (CAD) Additional Family Medical History / Comment(s): Ovarian CA Father Family Medical History: Hyperlipidemia, Hypertension General Exam - General Exam Comments Initial Comments: PE: CONSTITUTIONAL: No apparent distress, well appearing though uncomfortable appearing, stress SKIN: Warm, dry, no jaundice, hives or petechiae EYES: Pupils are equally round, extraocular movements intact without nystagmus, clear conjunctiva, non-icteric sclera HENT: Normocephalic, atraumatic, moist mucus membranes, oropharynx clear without exudates NECK: , Full range of motion, normal appearance PULMONARY: Clear to auscultation without wheezes, rhonchi, or rales, normal excursion, no accessory muscle use and no stridor CARDIOVASCULAR: Cardiac, regular rate, rhythm, normal S1 and S2. No appreciated murmurs, rubs or gallops. Strong radial pulses with intact distal perfusion. No lower extremity edema GASTROINTESTINAL: Soft, active bowel sounds throughout, non-tender, non- distended, no palpable masses, no rebound or guarding. No hepatosplenomegaly MUSCULOSKELETAL: Extremities have no gross deformity, no edema, redness, or swelling. No calf swelling NEUROLOGIC:_a/o x 3, GCS 15, normal mentation and speech. Moves all extremities x 4 without motor or sensory deficit, mildly tremulous PSYCHIATRIC: Anxious mood and affect, thought process is clear and linear Limitations: no limitations Course Vital Signs 08/11/24 08/11/24 08/11/24 02:15 02:33 03:25 Temperature 98.1 F Pulse Rate 130 H 121 H 88 Respiratory 19 16 Rate Blood Pressure 152/113 178/106 126/83 O2 Sat by Pulse 99 99 97 Oximetry 08/11/24 08/11/24 03:53 05:49 Temperature Pulse Rate 96 96 Respiratory 16 16 Rate Blood Pressure 128/89 128/60 O2 Sat by Pulse 96 98 Oximetry EKG Findings - EKG Comments: EKG Findings:: Sinus rhythm with shortened CO interval, rate 99 bpm, CO interval 116 ms QT/QTc within normal limits, normal axis, no significant ST elevations or depressions, no delta waves, no arrhythmia Medical Decision Making - Medical Decision Making Was pt. sent in by a medical professional or institution (, PA, SIZING END BANDER, urgent care, hospital, or [facility]...) When possible be specific @ -[No] Did you speak to anyone other than the patient for history (EMS, parent, family, police, friend...)? What history was obtained from this source @ -[Spoke with patient's who assisted in providing history stating patient was admitted to [facility] about 4 to 5 months ago in the ICU for similar Did you review nursing and triage notes (agree or disagree)? Why? @ -[I reviewed nursing and triage notes]-reviewed triage note, disagree, states patient has abdominal pain, patient denies any abdominal pain to myself Were old charts reviewed (outside hosp., previous admission, EMS record, old EKG, old radiological studies, urgent care reports/EKG's, [facility] records)? Report findings @ -[Medical records reviewed] Differential Diagnosis (chest pain, altered mental status, abdominal pain women, abdominal pain men, vaginal bleeding, weakness, fever, dyspnea, syncope, headache, dizziness, GI bleed, back pain, seizure, CVA, palpatations, mental health, musculoskeletal)? Differential diagnosis remains broad over top considerations include alcohol withdrawal syndrome, acute pancreatitis, gastroenteritis, peptic ulcer disease, Cholecystitis, diverticulosis, hepatitis, UTI, gastroenteritis, incarcerated hernia, bowel obstruction, constipation, inflammatory bowel, kidney stone, this is not meant to be an all-inclusive list EKG interpreted by me (3pts min.). @ -[As above] X-rays interpreted by me (1pt min.). @ -[None done] CT interpreted by me (1pt min.). @ -[None done] U/S interpreted by me (1pt. min.). @ -[None done] What testing was considered but not performed or refused? (CT, X-rays, U/S, labs)? Why? @ -[None] What meds were considered but not given or refused? Why? @ -[None] Did you discuss the management of the patient with other professionals (professionals i.e. , GRETCHEN, SIZING END BANDER, lab, RT, psych nurse, social sciences professor, supercalender operator, teacher, workers' compensation hearings officer, casework supervisor)? Give summary @ -[No] Was smoking cessation discussed for >3mins.? @ -[No] Was critical care preformed (if so, how long)? @ -[No] Were there social determinants of health that impacted care today? How? (Homelessness, low income, unemployed, alcoholism, drug addiction, transportation, low edu. Level, literacy, decrease access to med. care, nursing home, rehab)? @ -[No] Was there de-escalation of care discussed even if they declined (Discuss DNR or withdrawal of care, Hospice)? @ -[No] What co-morbidities impacted this encounter? (DM, HTN, Smoking, COPD, CAD, Cancer, CVA, ARF, Chemo, Hep., AIDS, mental health diagnosis, sleep apnea, morbid obesity)? @ -Alcoholism Was patient admitted / discharged? Hospital course, mention meds given and route, prescriptions, significant lab abnormalities, going to OR and other pertinent info. @ -Discharged- patient is a 54-year-old female past medical history of alcoholism presenting today for nausea and vomiting x 1 day. Patient is tachycardic and hypertensive on arrival. I suspect this is secondary to early alcohol withdrawal as well as anxiety, nausea and vomiting. Exam showed a soft nontender abdomen, patient anxious appearing and mildly tremulous otherwise no additional signs of alcohol withdrawal. Plan for IV fluid boluses, nausea control, 10 mg IV Valium, comprehensive labs patient agreeable plan of care. Labs significant for sodium of 130, chloride 92, bicarb 19 anion gap of 19 I suspect elevated anion gap is secondary to vomiting, glucose 136, lactic is 1.8, AST/ALT 100/41, likely reflects patient's chronic alcohol abuse, troponin 0.01 7, blood alcohol undetectable. On reassessment patient is no longer tachycardic, is much more comfortable appearing, endorses mild nausea though has improvement of symptoms. She will trial ice chips and receive additional dose nausea control. Given patient's overall reassuring labs, well-controlled symptoms, CIWA of 1, will plan for discharge home with Librium taper. Updated patient to findings and discussed plan for discharge with Librium taper. Patient was agreeable plan of care. Discussed with her the importance of abstaining from alcohol intake. We discussed maintaining a clear liquid diet for the next 24 hours and the importance of following up with outpatient alcohol abuse treatment programs. Patient agreeable wth Undiagnosed new problem with uncertain prognosis? @ -[No] Drug Therapy requiring intensive monitoring for toxicity (Heparin, Nitro, Insulin, Cardizem)? @ -[No] Were any procedures done? @ -[No] Diagnosis/symptom? @ -[default] Acute, or Chronic, or Acute on Chronic? @ -[default] Uncomplicated (without systemic symptoms) or Complicated (systemic symptoms)? @ -[default] Side effects of treatment? @ -[No] Exacerbation, Progression, or Severe Exacerbation? @ -[No] Poses a threat to life or bodily function? How? (Chest pain, USA, DC, pneumonia, PE, COPD, DKA, ARF, appy, cholecystitis, CVA, Diverticulitis, Homicidal, Suicidal, threat to staff... and all critical care pts) @ -[No] - Lab Data Result diagrams: 08/11/24 02:38 08/11/24 02:38 Lab Results 08/11/24 08/11/24 08/11/24 Range/Units 02:38 02:38 02:38 WBC 6.16 (4.50-10.00) 10*3/uL RBC 3.57 L (4.10-5.20) 10*6/uL Hgb 13.1 (12.0-15.0) g/dL Hct 36.3 L (37.2-46.3) % MCV 101.7 H (80.0-97.0) fL MCH 36.7 H (27.0-32.0) pg MCHC 36.1 (32.0-37.0) g/dL Plt Count 205 (140-440) 10*3/uL MPV 9.9 (9.5-12.2) fL Immature Gran % (Auto) 0.3 % Neutrophils % 74.4 % Lymphocytes % 15.7 % Monocytes % 7.5 % Eosinophils % 1.5 % Basophils % 0.6 % Immature Gran # 0.02 (0.00-0.04) 10*3/uL Neutrophils # 4.58 (1.80-7.70) 10*3/uL Lymphocytes # 0.97 (0.90-5.00) 10*3/uL Monocytes # 0.46 (0.20-1.00) 10*3/uL Eosinophils # 0.09 (0.04-0.35) 10*3/uL Basophils # 0.04 (0.00-0.10) 10*3/uL Sodium 130 L (137-145) mmol/L Potassium 4.1 (3.5-5.1) mmol/L Chloride 92 L (98-107) mmol/L Carbon Dioxide 19 L (22-30) mmol/L Anion Gap 19 mmol/L BUN 7 (7-17) mg/dL Creatinine 0.54 (0.52-1.04) mg/dL Est GFR (CKD-EPI)AfAm >90 (>60 ml/min/1.73 sqM) Est GFR (CKD-EPI)NonAf >90 (>60 ml/min/1.73 sqM) Glucose 136 H (74-99) mg/dL Plasma Lactic Acid [place] (0.7-2.0) mmol/L Calcium 10.3 H (8.4-10.2) mg/dL Phosphorus 2.6 (2.5-4.5) mg/dL Magnesium 1.9 (1.6-2.3) mg/dL Total Bilirubin 1.2 (0.2-1.3) mg/dL AST 100 H (14-36) U/L ALT 41 H (4-34) U/L Alkaline Phosphatase 119 (38-126) U/L Troponin I (0.000-0.034) ng/mL Total Protein 8.7 H (6.3-8.2) g/dL Albumin 5.4 H (3.5-5.0) g/dL Amylase 86 (30-110) U/L Lipase 110 (23-300) U/L Urine Color Yellow Urine Appearance Cloudy H (Clear) Urine pH 5.5 (5.0-8.0) Ur Specific [place] 1.017 (1.001-1.035) Urine Protein Negative (Negative) Urine Glucose (UA) Negative (Negative) Urine Ketones 2+ H (Negative) Urine Blood Negative (Negative) Urine Nitrite Negative (Negative) Urine Bilirubin Negative (Negative) Urine Urobilinogen <2.0 (<2.0) mg/dL Ur Leukocyte Esterase Small H (Negative) Urine RBC 1 (0-5) /hpf Urine WBC 6 H (0-5) /hpf Ur Squamous Epith Cells 6 H (0-4) /hpf Urine Bacteria Rare H (None) /hpf Hyaline Casts 12 H (0-2) /lpf Urine Mucus Occasional H (None) /hpf Serum Alcohol <10 mg/dL 08/11/24 08/11/24 Range/Units 02:39 02:39 WBC (4.50-10.00) 10*3/uL RBC (4.10-5.20) 10*6/uL Hgb (12.0-15.0) g/dL Hct (37.2-46.3) % MCV (80.0-97.0) fL MCH (27.0-32.0) pg MCHC (32.0-37.0) g/dL Plt Count (140-440) 10*3/uL MPV (9.5-12.2) fL Immature Gran % (Auto) % Neutrophils % % Lymphocytes % % Monocytes % % Eosinophils % % Basophils % % Immature Gran # (0.00-0.04) 10*3/uL Neutrophils # (1.80-7.70) 10*3/uL Lymphocytes # (0.90-5.00) 10*3/uL Monocytes # (0.20-1.00) 10*3/uL Eosinophils # (0.04-0.35) 10*3/uL Basophils # (0.00-0.10) 10*3/uL Sodium (137-145) mmol/L Potassium (3.5-5.1) mmol/L Chloride (98-107) mmol/L Carbon Dioxide (22-30) mmol/L Anion Gap mmol/L BUN (7-17) mg/dL Creatinine (0.52-1.04) mg/dL Est GFR (CKD-EPI)AfAm (>60 ml/min/1.73 sqM) Est GFR (CKD-EPI)NonAf (>60 ml/min/1.73 sqM) Glucose (74-99) mg/dL Plasma Lactic Acid [place] 1.8 (0.7-2.0) mmol/L Calcium (8.4-10.2) mg/dL Phosphorus (2.5-4.5) mg/dL Magnesium (1.6-2.3) mg/dL Total Bilirubin (0.2-1.3) mg/dL AST (14-36) U/L ALT (4-34) U/L Alkaline Phosphatase (38-126) U/L Troponin I 0.017 (0.000-0.034) ng/mL Total Protein (6.3-8.2) g/dL Albumin (3.5-5.0) g/dL Amylase (30-110) U/L Lipase (23-300) U/L Urine Color Urine Appearance (Clear) Urine pH (5.0-8.0) Ur Specific [place] (1.001-1.035) Urine Protein (Negative) Urine Glucose (UA) (Negative) Urine Ketones (Negative) Urine Blood (Negative) Urine Nitrite (Negative) Urine Bilirubin (Negative) Urine Urobilinogen (<2.0) mg/dL Ur Leukocyte Esterase (Negative) Urine RBC (0-5) /hpf Urine WBC (0-5) /hpf Ur Squamous Epith Cells (0-4) /hpf Urine Bacteria (None) /hpf Hyaline Casts (0-2) /lpf Urine Mucus (None) /hpf Serum Alcohol mg/dL Disposition Clinical Impression: Nausea and vomiting, Alcohol withdrawal Disposition: HOME SELF-CARE Condition: Good Instructions (If sedation given, give patient instructions): Acute Nausea and Vomiting (ED) Additional Instructions: Every disease is a spectrum and a small chance still exists that a serious condition could develop, for this reason, please monitor yourself closely for new, changing or worsening symptoms, symptoms that persist beyond 48 hours, fever, new abdominal pain, hallucinations, vomiting blood, inability to tolerate/keep down fluids or your medications, inability to follow up with outpatient providers as instructed and should you experience these symptoms or should you have any further concerns for your wellbeing please return to the ED or call 911 immediately. PLEASE call your primary care physician as soon as possible to arrange / discuss plan for followup appointment. Appointment in the next 1-3 days is strongly encouraged if possible. PLEASE let us know here before you leave if there is anything further we can do to be of any assistance. Take care and feel Better! Prescriptions: chlordiazePOXIDE HCl [Librium] See Taper PO QID 4 Days #15 capsule Is patient prescribed a controlled substance at d/c from ED?: Yes When asked, does pt state using other controlled substances?: No Referrals: Tahir Shepard MD [Primary Care Provider] - 1-2 days Forms: AA Meetings [facility]
[2024-08-11 03:11] LABS: ALT 41 U/L (4-34); AST 100 U/L (14-36); African American GFR (CKD) >90 (>60 ml/min/1.73 sqM); Albumin 5.4 g/dL (3.5-5.0); Alcohol <10 mg/dL; Alkaline Phosphatase 119 U/L (38-126); Amylase 86 U/L (30-110); Anion Gap 19 mmol/L; Blood Urea Nitrogen 7 mg/dL (7-17); Calcium 10.3 mg/dL (8.4-10.2); Carbon Dioxide 19 mmol/L (22-30); Chloride 92 mmol/L (98-107); Glucose 136 mg/dL (74-99); Lipase 110 U/L (23-300); Magnesium 1.9 mg/dL (1.6-2.3); Non-African American GFR(CKD) >90 (>60 ml/min/1.73 sqM); Phosphorus 2.6 mg/dL (2.5-4.5); Potassium 4.1 mmol/L (3.5-5.1); Sodium 130 mmol/L (137-145); Total Bilirubin 1.2 mg/dL (0.2-1.3); Total Protein 8.7 g/dL (6.3-8.2)
[2024-08-11] MEDS: ACETAMINOPHEN IV (For NPO) 1,000 MG in EMPTY BAG 1 BAG IVPB ONE (03:16)
[2024-08-11] MEDS: SODIUM CHLORIDE 0.9% 1,000 ML IV ONE (03:16)
[2024-08-11] MEDS: MORPHINE SULFATE 4 MG/ML SYRINGE IV STA (03:17)
[2024-08-11 04:23] VITALS: PULSE 96; RESP 16
[2024-08-11 05:01] LABS: Appearance,Urine Cloudy (Clear); Bacteria,Urine Rare /hpf; Bilirubin,Urine Negative (Negative); Blood,Urine Negative (Negative); Color,Urine Yellow; Glucose,Urine (UA) Negative (Negative); Hyaline Casts,Urine 12 /lpf (0-2); Ketones,Urine 2+ (Negative); Leukocyte Esterase,Urine Small (Negative); Mucus,Urine Occasional /hpf; Nitrite,Urine Negative (Negative); PH, Urine 5.5 (5.0-8.0); Protein,Urine Negative (Negative); RBC,Urine 1 /hpf (0-5); Specific Gravity,Urine 1.017 (1.001-1.035); Squamous Epithelial Cell,Urine 6 /hpf (0-4); Urobilinogen,Urine <2.0 mg/dL (<2.0); WBC,Urine 6 /hpf (0-5)
[2024-08-11 05:50] VITALS: BP 128/60
[2024-08-11] MEDS: ONDANSETRON 4 MG ODT STARTER PACK 2 TAB BTL PO STA (06:13)
== END 2024-08-11 06:19 | disposition home or self-care (01) ==
LOC: EC 02:15
DX: R11.2 Nausea with vomiting, unspecified (principal); F10.939 Alcohol use, unspecified with withdrawal, unspecified; F17.290 Nicotine dependence, other tobacco product, uncomplicated; Z88.0 Allergy status to penicillin
CPT/HCPCS: 36415; 93005; 80053; 82150; 83605; 83690; 83735; 84100; 84484; 85025; 81001; 80320; 99284; 96374; 96375 ×2; 96376 ×2; 96361; J3360; J2405; J1885; S0119

== ENCOUNTER 2024-09-04 06:25 | Inpatient (IN) | payer BC ==
--- NOTE | 2024-09-04 06:55 | ED ---
Nausea/Vomiting/Diarrhea HPI - General Chief complaint: Nausea/Vomiting/Diarrhea Stated complaint: NV Time Seen by Provider: 09/04/24 06:45 Source: patient Mode of arrival: wheelchair Limitations: no limitations - History of Present Illness Initial comments: The patient is a 54-year-old female with a history of chronic alcohol abuse, chronic nausea vomiting due to alcohol withdrawal who presents emergency room with complaints of nausea vomiting since yesterday morning. Patient states is progressively worsened. Her last drink was 30 hours ago. She was seen in July for similar symptoms. She has had history of alcoholic ketoacidosis in the past. Had taken Zofran yesterday without improvement. Patient denies any drug use. Denies any fevers cough or flulike symptoms. Patient was started on clonidine for BP and HR. She is on no other medications. she denies Cp, SOB, Abdominal pain, seizures or history of seizures. MD complaint: nausea, vomiting -: days(s) (1) - Related Data Home Medications Medication Instructions Recorded Confirmed Fluticasone Propionate 2 spray EA NOSTRIL DAILY PRN 12/19/21 02/14/24 [Fluticasone Propionate Nasal Diamond] Albuterol Inhaler [Ventolin Hfa 2 puff INHALATION RT-QID PRN 02/14/24 02/14/24 Inhaler] FLUoxetine HCL [PROzac] 10 mg PO DAILY 02/14/24 02/14/24 Previous Rx's Medication Instructions Recorded Folic Acid 1 mg PO DAILY 30 Days #30 tab 02/16/24 Multivitamins, Thera [Multivitamin 1 each PO DAILY 30 Days #30 tab 02/16/24 (formulary)] Thiamine [Vitamin B-1] 100 mg PO DAILY 30 Days #30 tab 02/16/24 chlordiazePOXIDE HCl [Librium] See Taper PO QID 4 Days #15 capsule 08/11/24 Allergies Allergy/AdvReac Type Severity Reaction Status Date / Time Penicillins Allergy Unknown Verified 09/04/24 06:29 Childhood Review of Systems ROS Statement: Those systems with pertinent positive or pertinent negative responses have been documented in the HPI. ROS Other: All systems not noted in ROS Statement are negative. Gastrointestinal: Reports: nausea, vomiting Past Medical History Past Medical History: Asthma, Pneumonia History of Any Multi-Drug Resistant Organisms: None Reported Past Surgical History: Tubal Ligation Past Anesthesia/Blood Transfusion Reactions: No Reported Reaction Past Psychological History: ADD/ADHD, Anxiety, Depression, PTSD Smoking Status: Current every day smoker, Vaper Past Alcohol Use History: Abuse, Daily, Heavy Past Drug Use History: Marijuana - Past Family History Mother Family Medical History: Cancer, Coronary Artery Disease (CAD) Additional Family Medical History / Comment(s): Ovarian CA Father Family Medical History: Hyperlipidemia, Hypertension General Exam Limitations: no limitations General appearance: alert Head exam: Present: atraumatic Eye exam: Present: normal appearance ENT exam: Present: normal exam Neck exam: Present: normal inspection, full ROM Respiratory exam: Present: normal lung sounds bilaterally Cardiovascular Exam: Present: tachycardia GI/Abdominal exam: Present: soft Back exam: Present: full ROM Neurological exam: Present: alert, oriented X3 Psychiatric exam: Present: normal affect, normal mood Skin exam: Present: warm Course Vital Signs 09/04/24 09/04/24 09/04/24 06:29 07:34 08:10 Temperature 98.1 F 98.2 F Pulse Rate 139 H 108 H 70 Respiratory 18 18 18 Rate Blood Pressure 146/97 147/120 153/100 O2 Sat by Pulse 98 100 96 Oximetry 09/04/24 09/04/24 11:00 13:04 Temperature Pulse Rate 111 H 107 H Respiratory 18 18 Rate Blood Pressure 133/94 127/82 O2 Sat by Pulse 97 96 Oximetry - Reevaluation(s) Reevaluation #1: 09/04/24 1045 Patient has a low bicarb and low CO2 however is compensating and pH is 7.31. Will admit for further hydration and monitoring for alcoholic ketoacidosis. I will discuss with admitting physician regarding bicarb administration. Patient had been given a normal saline bolus and then was started on 5% dextrose normal saline maintenance fluids. She was given Ativan as well as 1 g of magnesium sulfate. She is stable at this time and is feeling better. Her heart rate did improve with fluid resuscitation. I spoke with Dr. Anderson regarding admission and management/ Medical Decision Making - Medical Decision Making Was pt. sent in by a medical professional or institution (, PA, DISABILITY COORDINATOR, urgent care, hospital, or halfway...) When possible be specific @ -[No] Did you speak to anyone other than the patient for history (EMS, parent, family, police, friend...)? What history was obtained from this source @ -Family member at bedside Did you review nursing and triage notes (agree or disagree)? Why? @ -[I reviewed and agree with nursing and triage notes] Were old charts reviewed (outside hosp., previous admission, EMS record, old EKG, old radiological studies, urgent care reports/EKG's, halfway records)? Report findings @ -Yes old charts with previous admissions including July 2024 admission for similar symptoms Differential Diagnosis (chest pain, altered mental status, abdominal pain women, abdominal pain men, vaginal bleeding, weakness, fever, dyspnea, syncope, headache, dizziness, GI bleed, back pain, seizure, CVA, palpatations, mental health, musculoskeletal)? @ -Alcohol withdrawal, pancreatitis, gastritis EKG interpreted by me (3pts min.). @ -EKG shows sinus tachycardia rate of [address] segment elevation X-rays interpreted by me (1pt min.). @ -[None done] CT interpreted by me (1pt min.). @ -[None done] U/S interpreted by me (1pt. min.). @ -[None done] What testing was considered but not performed or refused? (CT, X-rays, U/S, labs)? Why? @ -[None] What meds were considered but not given or refused? Why? @ -[None] Did you discuss the management of the patient with other professionals (professionals i.e. , PA, DISABILITY COORDINATOR, lab, RT, psych nurse, social services technician, joint cutter machine, teacher, retail loss prevention officer, vocational case manager)? Give summary @ -Discussed patient's symptoms workup and management with attending ED physician Dr. Jeronimo. Also spoke with admitting physician regarding admission and management of the alcoholic ketoacidosis. At this time we will observe the patient and hydrate her without giving bicarb Was smoking cessation discussed for >3mins.? @ -[No] Was critical care preformed (if so, how long)? @ -[No] Were there social determinants of health that impacted care today? How? (Homelessness, low income, unemployed, alcoholism, drug addiction, transportation, low edu. Level, literacy, decrease access to med. care, [facility], rehab)? @ -History of alcohol abuse. Patient drinks a bottle of alcohol daily and last drink 30 hours ago Was there de-escalation of care discussed even if they declined (Discuss DNR or withdrawal of care, Hospice)? DNR status @ -[No] What co-morbidities impacted this encounter? (DM, HTN, Smoking, COPD, CAD, Cancer, CVA, ARF, Chemo, Hep., AIDS, mental health diagnosis, sleep apnea, morbid obesity)? @ -Hypertension, alcohol abuse Was patient admitted / discharged? Hospital course, mention meds given and route, prescriptions, significant lab abnormalities, going to OR and other pertinent info. @ -Patient admitted for observation and further management of the alcoholic ketoacidosis Undiagnosed new problem with uncertain prognosis? @ -[No] Drug Therapy requiring intensive monitoring for toxicity (Heparin, Nitro, Insulin, Cardizem)? @ -[No] Were any procedures done? @ -[No] Diagnosis/symptom? @ -Alcohol ketoacidosis, dehydration, vomiting, alcohol abuse Acute, or Chronic, or Acute on Chronic? @ -Acute, acute on chronic Uncomplicated (without systemic symptoms) or Complicated (systemic symptoms)? @ -[default] Side effects of treatment? @ -[No] Exacerbation, Progression, or Severe Exacerbation? @ -[No] Poses a threat to life or bodily function? How? (Chest pain, USA, SD, pneumonia, PE, COPD, DKA, ARF, appy, cholecystitis, CVA, Diverticulitis, Homicidal, Suicidal, threat to staff... and all critical care pts) @ -Yes, alcoholic ketoacidosis - Lab Data Result diagrams: 09/04/24 07:00 09/04/24 07:00 Lab Results 09/04/24 09/04/24 09/04/24 Range/Units 07:00 07:00 07:00 WBC 12.16 H (4.50-10.00) 10*3/uL RBC 4.01 L (4.10-5.20) 10*6/uL Hgb 15.4 H (12.0-15.0) g/dL Hct 42.8 (37.2-46.3) % MCV 106.7 H D (80.0-97.0) fL MCH 38.4 H (27.0-32.0) pg MCHC 36.0 (32.0-37.0) g/dL Plt Count 251 (140-440) 10*3/uL MPV 10.2 (9.5-12.2) fL Immature Gran % (Auto) 0.4 % Neutrophils % 75.4 % Lymphocytes % 13.6 % Monocytes % 8.8 % Eosinophils % 1.2 % Basophils % 0.6 % Immature Gran # 0.05 H (0.00-0.04) 10*3/uL Neutrophils # 9.18 H (1.80-7.70) 10*3/uL Lymphocytes # 1.65 (0.90-5.00) 10*3/uL Monocytes # 1.07 H (0.20-1.00) 10*3/uL Eosinophils # 0.14 (0.04-0.35) 10*3/uL Basophils # 0.07 (0.00-0.10) 10*3/uL Differential Comment Manual Slide Review Performed VBG pH (7.31-7.41) VBG pCO2 (37-51) mmHg VBG HCO3 (24-28) mmol/L Sodium 141 (137-145) mmol/L Potassium 4.3 (3.5-5.1) mmol/L Chloride 102 (98-107) mmol/L Carbon Dioxide 8 L* (22-30) mmol/L Anion Gap 31 mmol/L BUN 5 L (7-17) mg/dL Creatinine 0.69 (0.52-1.04) mg/dL Est GFR (CKD-EPI)AfAm >90 (>60 ml/min/1.73 sqM) Est GFR (CKD-EPI)NonAf >90 (>60 ml/min/1.73 sqM) Glucose 143 H (74-99) mg/dL Calcium 11.7 H (8.4-10.2) mg/dL Magnesium 1.5 L (1.6-2.3) mg/dL Total Bilirubin 2.0 H (0.2-1.3) mg/dL AST 56 H (14-36) U/L ALT 26 (4-34) U/L Alkaline Phosphatase 114 (38-126) U/L Troponin I <0.012 (0.000-0.034) ng/mL Total Protein 9.7 H (6.3-8.2) g/dL Albumin 6.0 H (3.5-5.0) g/dL Amylase 77 (30-110) U/L Lipase 63 (23-300) U/L Serum Alcohol <10 mg/dL 09/04/24 Range/Units 09:35 WBC (4.50-10.00) 10*3/uL RBC (4.10-5.20) 10*6/uL Hgb (12.0-15.0) g/dL Hct (37.2-46.3) % MCV (80.0-97.0) fL MCH (27.0-32.0) pg MCHC (32.0-37.0) g/dL Plt Count (140-440) 10*3/uL MPV (9.5-12.2) fL Immature Gran % (Auto) % Neutrophils % % Lymphocytes % % Monocytes % % Eosinophils % % Basophils % % Immature Gran # (0.00-0.04) 10*3/uL Neutrophils # (1.80-7.70) 10*3/uL Lymphocytes # (0.90-5.00) 10*3/uL Monocytes # (0.20-1.00) 10*3/uL Eosinophils # (0.04-0.35) 10*3/uL Basophils # (0.00-0.10) 10*3/uL Differential Comment Manual Slide Review VBG pH 7.31 (7.31-7.41) VBG pCO2 26 L (37-51) mmHg VBG HCO3 13 L (24-28) mmol/L Sodium (137-145) mmol/L Potassium (3.5-5.1) mmol/L Chloride (98-107) mmol/L Carbon Dioxide (22-30) mmol/L Anion Gap mmol/L BUN (7-17) mg/dL Creatinine (0.52-1.04) mg/dL Est GFR (CKD-EPI)AfAm (>60 ml/min/1.73 sqM) Est GFR (CKD-EPI)NonAf (>60 ml/min/1.73 sqM) Glucose (74-99) mg/dL Calcium (8.4-10.2) mg/dL Magnesium (1.6-2.3) mg/dL Total Bilirubin (0.2-1.3) mg/dL AST (14-36) U/L ALT (4-34) U/L Alkaline Phosphatase (38-126) U/L Troponin I (0.000-0.034) ng/mL Total Protein (6.3-8.2) g/dL Albumin (3.5-5.0) g/dL Amylase (30-110) U/L Lipase (23-300) U/L Serum Alcohol mg/dL - EKG Data -: EKG Interpreted by Me Rate: tachycardia EKG Comments: EKG shows sinus tachycardia rate of [address] segment elevation QT interval of 385 ms Disposition Clinical Impression: Vomiting, Alcoholic ketoacidosis, Alcohol abuse, Dehydration Disposition: ADMITTED IP TO THIS [facility] Condition: Fair Referrals: Tahir Shepard MD [Primary Care Provider] - 1-2 days Decision to Admit Reason: Admit from EC Decision Date: 09/04/24 Decision Time: 11:00
[2024-09-04] MEDS: PANTOPRAZOLE 40 MG/10 ML VIAL IVP STA (07:03)
[2024-09-04] MEDS: ONDANSETRON 4 MG/2 ML VIAL IVP STA (07:03)
[2024-09-04] MEDS: LORazepam 1 MG/0.5 ML VIAL IV STA (07:03)
[2024-09-04] MEDS: SODIUM CHLORIDE 0.9% 1,000 ML IV ONE ×2 (07:04→15:43)
[2024-09-04 07:31] LABS: ALT 26 U/L (4-34); AST 56 U/L (14-36); African American GFR (CKD) >90 (>60 ml/min/1.73 sqM); Albumin 6.0 g/dL (3.5-5.0); Alkaline Phosphatase 114 U/L (38-126); Amylase 77 U/L (30-110); Anion Gap 31 mmol/L; Blood Urea Nitrogen 5 mg/dL (7-17); Calcium 11.7 mg/dL (8.4-10.2); Chloride 102 mmol/L (98-107); Glucose 143 mg/dL (74-99); Lipase 63 U/L (23-300); Magnesium 1.5 mg/dL (1.6-2.3); Non-African American GFR(CKD) >90 (>60 ml/min/1.73 sqM); Potassium 4.3 mmol/L (3.5-5.1); Sodium 141 mmol/L (137-145); Total Protein 9.7 g/dL (6.3-8.2)
[2024-09-04 07:44] LABS: Basophils # (A) 0.07 10*3/uL (0.00-0.10); Basophils % (A) 0.6 %; Eosinophils # (A) 0.14 10*3/uL (0.04-0.35); Eosinophils % (A) 1.2 %; HCT 42.8 % (37.2-46.3); HGB 15.4 g/dL (12.0-15.0); Lymphocytes # (A) 1.65 10*3/uL (0.90-5.00); Lymphocytes % (A) 13.6 %; MCH 38.4 pg (27.0-32.0); MCHC 36.0 g/dL (32.0-37.0); MCV 106.7 fL (80.0-97.0); Monocytes # (A) 1.07 10*3/uL (0.20-1.00); Monocytes % (A) 8.8 %; Neutrophils # (A) 9.18 10*3/uL (1.80-7.70); Neutrophils % (A) 75.4 %; Platelet Count 251 10*3/uL (140-440); RBC 4.01 10*6/uL (4.10-5.20); RDW 12.8 % (11.5-14.5); WBC 12.16 10*3/uL (4.50-10.00)
[2024-09-04] MEDS: IBUPROFEN 600 MG TAB PO STA (08:20)
[2024-09-04] MEDS: KETOROLAC 15 MG/ML 1 ML VIAL IVP STA (08:21)
[2024-09-04] MEDS: THIAMINE 100 MG/ML 2 ML VIAL IVP SCH (08:21)
[2024-09-04 08:53] LABS: Carbon Dioxide 8 mmol/L (22-30)
[2024-09-04] MEDS: DEXTROSE 5%-0.45% NACL 1,000 ML IV ONE ×2 (08:59→12:11)
[2024-09-04] MEDS: MAGNESIUM SULFATE-D5W PMX 1 GM in DEXTROSE/WATER 1 100ML.BAG IVPB ONE (09:32)
[2024-09-04 09:42] LABS: VBG HCO3 13.0 mmol/L (24-28); VBG PCO2 26.0 mmHg (37-51); VBG PH 7.31 (7.31-7.41)
[2024-09-04] MEDS ORDERED: NALOXONE 0.4 MG/ML 1 ML VIAL IV PRN (11:07)
[2024-09-04] MEDS ORDERED: PROCHLORPERAZINE INJ 10 MG/2 ML VIAL IVP PRN (14:29)
[2024-09-04] MEDS ORDERED: ALBUTEROL NEBULIZED 2.5 MG/3 ML INHALATION PRN (14:44)
[2024-09-04 15:05] LABS: INR 1.0 (<1.2); Prothrombin Time 11.2 sec (10.0-12.5)
[2024-09-04 15:06] LABS: Partial Thromboplastin Time 22.7 sec (22.0-30.0)
[2024-09-04 15:10] LABS: African American GFR (CKD) >90 (>60 ml/min/1.73 sqM); Anion Gap 21 mmol/L; Blood Urea Nitrogen 5 mg/dL (7-17); Calcium 10.6 mg/dL (8.4-10.2); Carbon Dioxide 12 mmol/L (22-30); Chloride 105 mmol/L (98-107); Glucose 89 mg/dL (74-99); Non-African American GFR(CKD) >90 (>60 ml/min/1.73 sqM); Potassium 4.3 mmol/L (3.5-5.1); Sodium 138 mmol/L (137-145)
[2024-09-04] MEDS: ONDANSETRON 4 MG/2 ML VIAL IVP PRN (15:43)
[2024-09-04] MEDS: LORazepam 1 MG/0.5 ML VIAL IV PRN ×2 (15:44→22:36)
--- NOTE | 2024-09-04 15:46 | P.HPIM ---
History of Present Illness H&P Date: 09/04/24 The patient is a 54-year-old female with a past medical history significant for chronic alcohol abuse and previous episodes of alcohol withdrawal with nausea and vomiting who is here for evaluation of nausea and vomiting that began yesterday morning. Patient mentions that she stopped drinking alcohol about 2 days ago and developed bad anxiety along with nausea and vomiting. She states that she went by an urgent care and states she was given Xanax which did not help the anxiety and then she came to the ED. She states that she is unable to keep anything down. When prompted the patient also mentions some dark diarrhea today and has vomited up about a tablespoon of bright red blood a couple times. she also mentions a headache and constant drooling. The patient mentions that she typically drinks about a pint of alcohol per day at home but now feels determined to stop. Patient mentions that the only medical conditions that she takes medication for at home are asthma (uses inhaler) and hypertension which she takes clonidine for. Patient mentions that she had a colonoscopy about 3 years ago and she has a family history significant for colon cancer. She has never had an EGD. When asked the patient reports that besides alcohol, she does use marijuana occasionally but stopped about a day ago. She also mentions that she smokes 3 to 4 cigarettes/day but stopped a couple of days ago. The patient denies any chest pain, shortness of breath, abdominal pain. Review of Systems Negative except for as listed in HPI Past Medical History Past Medical History: Asthma, Pneumonia History of Any Multi-Drug Resistant Organisms: None Reported Past Surgical History: Tubal Ligation Past Anesthesia/Blood Transfusion Reactions: No Reported Reaction Past Psychological History: ADD/ADHD, Anxiety, Depression, PTSD Smoking Status: Current every day smoker, Vaper Past Alcohol Use History: Abuse, Daily, Heavy Past Drug Use History: Marijuana - Past Family History Mother Family Medical History: Cancer, Coronary Artery Disease (CAD) Additional Family Medical History / Comment(s): Ovarian CA Father Family Medical History: Hyperlipidemia, Hypertension Medications and Allergies Home Medications Medication Instructions Recorded Confirmed Type Albuterol Inhaler [Ventolin Hfa 2 puff INHALATION RT-QID PRN 02/14/24 09/04/24 History Inhaler] cloNIDine HCL [Catapres] 0.1 mg PO BID 09/04/24 09/04/24 History Allergies Allergy/AdvReac Type Severity Reaction Status Date / Time gluten Allergy Abdominal Verified 09/04/24 15:56 Pain Penicillins Allergy Unknown Verified 09/04/24 14:21 Childhood fluoxetine [From Prozac] AdvReac SI Verified 09/04/24 14:21 Physical Exam Osteopathic Statement: *. No significant issues noted on an osteopathic structural exam other than those noted in the History and Physical/Consult. Vitals: Vital Signs Temp Pulse Resp BP Pulse Ox 09/04/24 08:10 70 18 153/100 96 09/04/24 07:34 98.2 F 108 H 18 147/120 100 09/04/24 06:29 98.1 F 139 H 18 146/97 98 Intake and Output 09/03/24 09/04/24 09/04/24 22:59 06:59 14:59 Other: Weight 68.039 kg General: No acute distress. Holding bucket. Derm: warm, dry Head: atraumatic, normocephalic, symmetric Mouth: Pharyngeal erythema noted. Mucous membranes appeared moist on exam. Cardiovascular: Tachycardic. Regular rhythm. no murmurs appreciated. No lower extremity edema. Lungs: Lungs clear to auscultation bilaterally. No wheezing rales or rhonchi. Abdominal: Nondistended. Nontender to palpation in all 4 quadrants Ext: no gross muscle atrophy. no contractures Neuro: no focal neuro deficits Psych: Alert and oriented Results CBC & Chem 7: 09/04/24 07:00 09/04/24 14:34 Labs: Abnormal Lab Results - Last 24 Hours (Table) 09/04/24 09/04/24 09/04/24 Range/Units 07:00 07:00 09:35 WBC 12.16 H (4.50-10.00) 10*3/uL RBC 4.01 L (4.10-5.20) 10*6/uL Hgb 15.4 H (12.0-15.0) g/dL MCV 106.7 H D (80.0-97.0) fL MCH 38.4 H (27.0-32.0) pg Immature Gran # 0.05 H (0.00-0.04) 10*3/uL Neutrophils # 9.18 H (1.80-7.70) 10*3/uL Monocytes # 1.07 H (0.20-1.00) 10*3/uL VBG pCO2 26 L (37-51) mmHg VBG HCO3 13 L (24-28) mmol/L Carbon Dioxide 8 L* (22-30) mmol/L BUN 5 L (7-17) mg/dL Glucose 143 H (74-99) mg/dL Calcium 11.7 H (8.4-10.2) mg/dL Magnesium 1.5 L (1.6-2.3) mg/dL Total Bilirubin 2.0 H (0.2-1.3) mg/dL AST 56 H (14-36) U/L Total Protein 9.7 H (6.3-8.2) g/dL Albumin 6.0 H (3.5-5.0) g/dL Assessment and Plan Assessment: Assessment and plan 1. Nausea and vomiting Anion gap metabolic acidosis likely due to alcoholic ketoacidosis History of chronic alcohol abuse Tachycardia # Venous blood gas drawn in ED show a venous pH of 7.31, PCO2 of 26, bicarb of 13 (originally 8 per BMP on arrival) # Anion gap of 31 # Given patient's PCO2 and bicarb this is likely a mixed metabolic acidosis with concomitant metabolic alkalosis (from vomiting/contraction alkalosis) # Given 1 L normal saline bolus in the ED and started on D5 half-normal saline at 50 mL an hour - Ordered 1 L normal saline bolus followed by normal saline maintenance fluids at 130 mL/h - Thiamine 100 mg IVP daily - WA protocol - Zofran 4 mg every 8 hour as needed - Ordered Compazine 5 mg IV every 4 hours as needed - Repeat BMP shows improvement to patient's acidosis with a bicarb of 12, anion gap of 21 2. Hematochezia and possible melena #Possible [place] tears from vomiting, gastric ulcers and esophageal varices are other possible differentials although less likely given patient's lab values and no history of cirrhosis -PT: 11.2, INR: 1.0, APTT: 22.7, lactic acid: 1.1 -Continue to monitor hemoglobin 3. Anxiety -Continue home clonidine 0.1 mg p.o. twice daily and as needed lorazepam 0.5 mg every 6 hours -Continue to monitor 4. Asthma -continue home fluticazone inhaler 5. Hypertension -Clonidine DVT ppx: Lovenox 40 mg SQ daily CODE STATUS: Full code I saw and evaluated the patient during the bautista and critical portions of this encounter, and discussed the case in detail with the resident author of this note, I agree with the Assessment and Plan, and my changes, if any, are highlighted in blue.
[2024-09-04] MEDS: ENOXAPARIN 40 MG/0.4 ML SYRINGE SQ SCH (17:10)
[2024-09-04] MEDS: SODIUM CHLORIDE 0.9% 1,000 ML IV SCH (18:05)
[2024-09-04] MEDS ORDERED: LORazepam 0.5 MG TAB PO PRN (21:44)
[2024-09-04] MEDS ORDERED: LORazepam 1 MG/0.5 ML VIAL IV PRN (21:44)
[2024-09-04] MEDS ORDERED: LORazepam 1 MG TAB PO PRN ×2 (21:44)
[2024-09-05] MEDS: LORazepam 1 MG TAB PO PRN ×2 (06:39→14:48)
[2024-09-05 07:50] LABS: HCT 33.8 % (37.2-46.3); HGB 11.6 g/dL (12.0-15.0); MCH 36.9 pg (27.0-32.0); MCHC 34.3 g/dL (32.0-37.0); MCV 107.6 FL (80.0-97.0); NRBC Per 100 WBC 0 X 10*3/uL (0.00-0.01); Platelet Count 168 X 10*3/uL (140-440); RBC 3.14 X 10*6/uL (4.10-5.20); RDW 13.2 % (11.5-14.5); WBC 6.18 X 10*3/uL (4.50-10.00)
[2024-09-05 08:01] LABS: ALT 18 U/L (8-44); AST 39 U/L (13-35); Albumin 4.2 g/dL (3.8-4.9); Albumin/Globulin Ratio 2.10 Ratio (1.60-3.17); Alkaline Phosphatase 77 U/L (41-126); Anion Gap 13.90 mmol/L (4.00-12.00); BUN/Creat Ratio 5.83 Ratio (12.00-20.00); Blood Urea Nitrogen 3.5 mg/dL (9.0-27.0); Calcium 8.7 mg/dL (8.7-10.3); Carbon Dioxide 18.1 mmol/L (21.6-31.8); Chloride 106 mmol/L (96-109); Globulin 2.0 g/dL (1.6-3.3); Glucose 94 mg/dL (70-110); Magnesium 1.4 mg/dL (1.5-2.4); Potassium 3.7 mmol/L (3.5-5.5); Sodium 138 mmol/L (135-145); Total Protein 6.2 g/dL (6.2-8.2)
[2024-09-05 08:33] LABS: Basophils # (A) 0.04 X 10*3/uL (0.00-0.10); Basophils % (A) 0.6 %; Eosinophils # (A) 0.31 X 10*3/uL (0.04-0.35); Eosinophils % (A) 5.0 %; Immature Grans, Automated 0.30 %; Lymphocytes # (A) 1.65 X 10*3/uL (0.90-5.00); Lymphocytes % (A) 26.7 %; Monocytes # (A) 0.53 X 10*3/uL (0.20-1.00); Monocytes % (A) 8.6 %; Neutrophils # (A) 3.63 X 10*3/uL (1.80-7.70); Neutrophils % (A) 58.8 %
[2024-09-05] MEDS: MAGNESIUM SULFATE-D5W PMX 1 GM in DEXTROSE/WATER 1 100ML.BAG IVPB ONE (09:39)
[2024-09-05] MEDS: MAGNESIUM SULFATE-D5W PMX 1 GM in DEXTROSE/WATER 1 100ML.BAG IVPB SCH (12:23)
--- NOTE | 2024-09-05 13:02 | P.PN ---
Subjective Progress Note Date: 09/05/24 Patient feels better today overall, she has been trying to eat. Denies any new vomiting. However does mention a very sore throat which causes her some pain with swallowing. Objective - Vital Signs Vital signs: Vital Signs Temp 98.1 F 09/05/24 06:46 Pulse 81 09/05/24 06:46 Resp 18 09/05/24 11:51 BP 129/86 09/05/24 06:46 Pulse Ox 98 09/05/24 06:46 FiO2 Intake & Output 09/04/24 09/05/24 09/05/24 18:59 06:59 18:59 Intake Total 1560 Balance 1560 Weight 68.039 kg Intake: Intake, IV Titration 1560 Amount Sodium Chloride 0.9% 1, 1560 000 ml @ 130 mls/hr IV . Q7H42M [facility] Rx#:[id number] Other: Voiding Method Toilet Toilet # Voids 1 5 - Exam General: No acute distress. Occasionally coughing over bucket. Derm: warm, dry Head: atraumatic, normocephalic, symmetric Mouth: Pharyngeal erythema noted. Mucous membranes appeared moist on exam. Cardiovascular: Regular rate. Regular rhythm. no murmurs appreciated. No lower extremity edema. Lungs: Lungs clear to auscultation bilaterally. No wheezing rales or rhonchi. Abdominal: Nondistended. Nontender to palpation in all 4 quadrants Ext: no gross muscle atrophy. no contractures Neuro: no focal neuro deficits Psych: Alert and oriented - Labs CBC & Chem 7: 09/05/24 03:13 09/05/24 03:13 Labs: Abnormal Lab Results - Last 24 Hours (Table) 09/04/24 09/05/24 09/05/24 Range/Units 14:34 03:13 03:13 RBC 3.14 L (4.10-5.20) X 10*6/uL Hgb 11.6 L (12.0-15.0) g/dL Hct 33.8 L (37.2-46.3) % MCV 107.6 H (80.0-97.0) FL MCH 36.9 H (27.0-32.0) pg Carbon Dioxide 12 L 18.1 L (22-30) mmol/L Anion Gap 13.90 H (4.00-12.00) mmol/L BUN 5 L 3.5 L (7-17) mg/dL BUN/Creatinine Ratio 5.83 L (12.00-20.00) Ratio Calcium 10.6 H (8.4-10.2) mg/dL Magnesium 1.4 L (1.5-2.4) mg/dL AST 39 H (13-35) U/L Assessment and Plan Assessment: Pertinent labs reviewed today: WBC: 6.18, Hgb: 11.6, MCV: 107.6, NA: 138, K: 3.7, bicarb: 18.1, anion gap: 13.90, M.4, creatinine: 0.6 Assessment and plan 1. Nausea and vomiting Anion gap metabolic acidosis likely due to alcoholic ketoacidosis and dehydration History of chronic alcohol abuse Tachycardia # Venous blood gas drawn in ED show a venous pH of 7.31, PCO2 of 26, bicarb of 13 (originally 8 per BMP on arrival) # Anion gap of 31 # Given patient's PCO2 and bicarb this is likely a mixed metabolic acidosis with concomitant metabolic alkalosis (from vomiting/contraction alkalosis) # Given 1 L normal saline bolus in the ED and started on D5 half-normal saline at 50 mL an hour - Continue normal saline maintenance fluids at 130 mL/h - Thiamine 100 mg IVP daily - CIWA protocol - Zofran 4 mg every 8 hour as needed - Compazine 5 mg IV every 4 hours as needed - Repeat BMP shows improvement to patient's acidosis with a bicarb of 18.1, anion gap of 13.9 - Ordered acetaminophen 325 mg p.o. every 6 hours as needed for throat pain - Ordered pantoprazole 40 mg PO at breakfast - Diet ordered; reassess in AM 2. hematemesis and possible melena #Possible [place] tears from vomiting, gastric ulcers and esophageal varices are other possible differentials although less likely given patient's lab values and no history of cirrhosis -Continue to monitor hemoglobin - Tylenol as needed for pain control 3. Hypomagnesemia - Patient given 4 g IV magnesium today - Recheck mg levels in AM. 4. Macrocytic anemia #Patient's drop in hemoglobin likely due to dilution from IV fluids -B12, folate levels drawn 3. Anxiety -Continue home clonidine 0.1 mg p.o. twice daily and as needed lorazepam 0.5 mg every 6 hours -Continue to monitor 4. Asthma -continue home fluticazone inhaler 5. Hypertension -Clonidine DVT ppx: Lovenox 40 mg SQ daily CODE STATUS: Full code I saw and evaluated the patient during the bautista and critical portions of this encounter, and discussed the case in detail with the resident author of this note, I agree with the Assessment and Plan, and my changes, if any, are highlighted in blue.
[2024-09-05] MEDS: PANTOPRAZOLE 40 MG TABLET PO SCH (14:48)
[2024-09-05] MEDS: ACETAMINOPHEN TAB 325 MG TAB PO PRN (21:12)
[2024-09-06 03:45] LABS: Basophils # (A) 0.02 10*3/uL (0.00-0.10); Basophils % (A) 0.4 %; Eosinophils # (A) 0.24 10*3/uL (0.04-0.35); Eosinophils % (A) 4.9 %; HCT 29.6 % (37.2-46.3); Lymphocytes # (A) 1.09 10*3/uL (0.90-5.00); Lymphocytes % (A) 22.3 %; MCH 38.7 pg (27.0-32.0); MCHC 36.5 g/dL (32.0-37.0); Monocytes # (A) 0.40 10*3/uL (0.20-1.00); Monocytes % (A) 8.2 %; Neutrophils # (A) 3.11 10*3/uL (1.80-7.70); Neutrophils % (A) 63.8 %; Platelet Count 149 10*3/uL (140-440); RBC 2.79 10*6/uL (4.10-5.20); RDW 12.6 % (11.5-14.5); WBC 4.88 10*3/uL (4.50-10.00)
[2024-09-06 03:50] LABS: HGB 10.8 g/dL (12.0-15.0); MCV 106.1 fL (80.0-97.0)
[2024-09-06 04:02] LABS: African American GFR (CKD) >90 (>60 ml/min/1.73 sqM); Anion Gap 10 mmol/L; Blood Urea Nitrogen <2 mg/dL (7-17); Calcium 8.6 mg/dL (8.4-10.2); Carbon Dioxide 20 mmol/L (22-30); Chloride 107 mmol/L (98-107); Glucose 86 mg/dL (74-99); Magnesium 1.9 mg/dL (1.6-2.3); Non-African American GFR(CKD) >90 (>60 ml/min/1.73 sqM); Potassium 3.1 mmol/L (3.5-5.1); Sodium 137 mmol/L (137-145)
[2024-09-06 08:18] LABS: Basophils # (A) 0.02 X 10*3/uL (0.00-0.10); Basophils % (A) 0.4 %; Eosinophils # (A) 0.27 X 10*3/uL (0.04-0.35); Eosinophils % (A) 5.2 %; HCT 31.4 % (37.2-46.3); HGB 10.7 g/dL (12.0-15.0); Immature Grans, Automated 0.20 %; Lymphocytes # (A) 1.07 X 10*3/uL (0.90-5.00); Lymphocytes % (A) 20.7 %; MCH 36.3 pg (27.0-32.0); MCHC 34.1 g/dL (32.0-37.0); MCV 106.4 FL (80.0-97.0); Monocytes # (A) 0.39 X 10*3/uL (0.20-1.00); Monocytes % (A) 7.6 %; NRBC Per 100 WBC 0 X 10*3/uL (0.00-0.01); Neutrophils # (A) 3.40 X 10*3/uL (1.80-7.70); Neutrophils % (A) 65.9 %; Platelet Count 146 X 10*3/uL (140-440); RBC 2.95 X 10*6/uL (4.10-5.20); RDW 13.2 % (11.5-14.5); WBC 5.16 X 10*3/uL (4.50-10.00)
[2024-09-06 08:33] LABS: Anion Gap 12.20 mmol/L (4.00-12.00); BUN/Creat Ratio <8.75 Ratio (12.00-20.00); Blood Urea Nitrogen <3.5 mg/dL (9.0-27.0); Carbon Dioxide 19.8 mmol/L (21.6-31.8); Chloride 107 mmol/L (96-109); Glucose 89 mg/dL (70-110); Potassium 3.2 mmol/L (3.5-5.5); Sodium 139 mmol/L (135-145)
[2024-09-06 08:34] LABS: ALT 15 U/L (8-44); AST 39 U/L (13-35); Albumin 3.7 g/dL (3.8-4.9); Albumin/Globulin Ratio 1.95 Ratio (1.60-3.17); Alkaline Phosphatase 70 U/L (41-126); Calcium 8.1 mg/dL (8.7-10.3); Globulin 1.9 g/dL (1.6-3.3); Total Protein 5.6 g/dL (6.2-8.2)
[2024-09-06] MEDS: LORazepam 1 MG/0.5 ML VIAL IV PRN (08:47)
[2024-09-06] MEDS: POTASSIUM CHLORIDE ER 20 MEQ TAB.ER PO STA (08:49)
--- NOTE | 2024-09-06 12:09 | P.DS ---
Providers Date of admission: 09/04/24 12:15 Expected date of discharge: 09/06/24 Attending physician: Mallorie Chen MD Primary care physician: Tahir Shepard Hospital Course: Discharge Diagnosis: 1. Nausea and vomiting Anion gap metabolic acidosis likely due to alcoholic ketoacidosis and dehydration History of chronic alcohol abuse Tachycardia 2. Hematemesis and possible melena 3. Hypomagnesemia 4. Macrocytic anemia Chronic: Anxiety Asthma Hypertension Hospital Course: The patient is a 54-year-old female with a history of chronic alcohol abuse and past alcohol alcohol withdrawal who came to the hospital for evaluation of nausea, vomiting, and anxiety that began a couple days ago after she stopped drinking alcohol. She also mentions vomiting up at about a tablespoon of bright red blood a couple times In the ED, labs were drawn indicating an anion gap metabolic acidosis with a pH of 7.31, bicarb of 8, venous pCO2 of 26, and anion gap of 31. EKG showed sinus tachycardia but was negative for ST elevations. The patient was admitted and given normal saline, thiamine, and was placed on CIWA protocol with as needed lorazepam. The patient was also given pantoprazole, and acetaminophen. Labs indicated a slight macrocytic anemia. B12 and folate levels were collected. The patient was discharged with a prescription for 150 mg naltrexone daily for alcohol use disorder. She was recommended to follow-up with her PCP. Patient seen and examined at bedside. Vital signs reviewed and stable. Physical examination: Vital signs reviewed General: No acute distress. Derm: warm, dry Head: atraumatic, normocephalic, symmetric Mouth: Pharyngeal erythema noted. Mucous membranes appeared moist on exam. Cardiovascular: Regular rate. Regular rhythm. no murmurs appreciated. No lower extremity edema. Lungs: Lungs clear to auscultation bilaterally. No wheezing rales or rhonchi. Abdominal: Nondistended. Nontender to palpation in all 4 quadrants Ext: no gross muscle atrophy. no contractures Neuro: no focal neuro deficits Psych: Alert and oriented A total of greater than 30 minutes of time were spent preparing this complex discharge summary. Patient was discharged on 09/06/2024. Zain Majano MD PGY-1 TY Dictation was produced using [employer] dictation software. please excuse any grammatical, word or spelling errors. I saw and evaluated the patient during the bautista and critical portions of this encounter, and discussed the case in detail with the resident author of this note, I agree with the Assessment and Plan, and my changes, if any, are highlighted in blue. Patient Condition at Discharge: Good Plan - Discharge Summary New Discharge Prescriptions: New Naltrexone HCl 50 mg PO DAILY 120 Days #120 tab Continue Albuterol Inhaler [Ventolin Hfa Inhaler] 2 puff INHALATION RT-QID PRN PRN Reason: Shortness Of Breath cloNIDine HCL [Catapres] 0.1 mg PO BID Discharge Medication List Albuterol Inhaler [Ventolin Hfa Inhaler] 2 puff INHALATION RT-QID PRN 02/14/24 [History] cloNIDine HCL [Catapres] 0.1 mg PO BID 09/04/24 [History] Naltrexone HCl 50 mg PO DAILY 120 Days #120 tab 09/06/24 [Rx] Follow up Appointment(s)/Referral(s): Tahir Shepard MD [Primary Care Provider] - 09/13/24 1:00 pm Patient Instructions/Handouts: Alcohol Withdrawal (GEN) Discharge/Stand Alone Forms: NA Meetings in [place], AA Meetings [place], Outpatient Counseling, In Substance Abuse Facilities Discharge Disposition: HOME SELF-CARE
[2024-09-06] MEDS: POTASSIUM BICARBONATE/CIT AC 20 MEQ TABLET.EFF PO ONE (14:57)
[2024-09-06 15:19] VITALS: BP 115/81; PULSE 109; RESP 17; TEMP 98.6
== END 2024-09-06 16:03 | disposition home or self-care (01) | DRG 897 ==
LOC: EC 06:25 → 4SSUR 12:15
PROVIDERS: ADMIT Internal Medicine; ATTEND Internal Medicine
PROC: HZ2ZZZZ Detoxification Services for Substance Abuse Treatment (ICD-10-PCS; principal; 2024-09-04)
DX: F10.239 Alcohol dependence with withdrawal, unspecified (principal); E87.29 Other acidosis; E87.4 Mixed disorder of acid-base balance; K92.0 Hematemesis; J45.909 Unspecified asthma, uncomplicated; I10 Essential (primary) hypertension; F32.A Depression, unspecified; D53.9 Nutritional anemia, unspecified; K92.1 Melena; K90.41 Non-celiac gluten sensitivity; E83.42 Hypomagnesemia; Z79.899 Other long term (current) drug therapy; Z71.41 Alcohol abuse counseling and surveillance of alcoholic; E86.0 Dehydration; F41.9 Anxiety disorder, unspecified; F17.290 Nicotine dependence, other tobacco product, uncomplicated; F43.10 Post-traumatic stress disorder, unspecified; F90.9 Attention-deficit hyperactivity disorder, unspecified type; Z82.49 Family history of ischemic heart disease and other diseases of the circulatory system; Z88.0 Allergy status to penicillin; Z87.01 Personal history of pneumonia (recurrent)
CPT/HCPCS: 36415; 80048; 80053; 80320; 82150; 82607; 82747; 82803; 83605; 83625; 83690; 83735; 84484; 85025; 85610; 85730; 93005; 96361; 96365; 96366; 96368; 96375; 99285